=== PATIENT | female | born 1950 | race Caucasian/White ===

== ENCOUNTER → 2023-06-08 12:00 | Outpatient (REF) | payer OTHER, SELFPAY | LOC: WDC 12:00 | PROVIDERS: ATTENDING PHYSICIAN Physician Assistant Medical | DX: Z12.31 Encounter for screening mammogram for malignant neoplasm of breast (principal) | CPT/HCPCS: 77063; 77067 ==

== ENCOUNTER → 2023-10-16 06:47 | Day surgery (SDC) | payer OTHER, SELFPAY | LOC: GI 06:47 | PROVIDERS: ATTENDING PHYSICIAN Internal Medicine Gastroenterology | DX: Z12.11 Encounter for screening for malignant neoplasm of colon (principal); D12.5 Benign neoplasm of sigmoid colon; K57.30 Diverticulosis of large intestine without perforation or abscess without bleeding; K64.8 Other hemorrhoids; Z80.0 Family history of malignant neoplasm of digestive organs | CPT/HCPCS: 45385; 88305 ==

== ENCOUNTER → 2023-10-19 08:03 | Outpatient (REF) | payer OTHER, SELFPAY | LOC: WDC 08:03 | PROVIDERS: ATTENDING PHYSICIAN Physician Assistant Medical | DX: R92.2 Inconclusive mammogram (principal); R92.30 Dense breasts, unspecified | CPT/HCPCS: 76641 ==

== ENCOUNTER 2024-03-06 13:28 | Inpatient (IN) | payer OTHER, SELFPAY ==
[2024-03-06] VITALS (8 sets, daily range): BP systolic 133–170; BP diastolic 74–94; BMI 23.2; BMI 22.5
[2024-03-06 09:32] LABS: Glucose - Point of Care 125 mg/dl (70-99)
[2024-03-06 10:03] LABS: % Basophils 0.6 % (0-2); % Eosinophils 4.7 % (0-6); % Immature Granulocytes 0.3 % (0-0.5); % Lymphocytes 37.4 % (20.5-51.1); % Monocytes 7.9 % (1.7-9.3); % Neutrophils 49.1 % (42.2-75.2); Absolute Eosinophils 0.3 10^3/uL (0-0.7); Absolute Lymphocytes 2.7 10^3/uL (1.2-3.4); Absolute Monocytes 0.6 10^3/uL (0.1-0.6); Absolute Neutrophils 3.5 10^3/uL (1.4-6.5); Hematocrit 42.3 % (37.0-47.0); Hemoglobin 14.6 g/dL (12.0-16.0); Mean Corp Hgb Conc. 34.5 g/dL (33.0-37.0); Mean Corpuscular Hgb 31.6 pg (27.0-31.0); Mean Corpuscular Volume 91.6 fL (81.0-99.0); Mean Platelet Volume 8.9 fL (7.4-10.4); Nucleated Red Blood Cells % 0 %; Platelet Count 266 10^3/uL (130-400); Red Blood Cell Count 4.62 10^6/uL (4.20-5.40); Red Cell Dist. Width 12.4 % (11.5-14.5); White Blood Cell Count 7.2 10^3/uL (4.8-10.8)
[2024-03-06 10:13] LABS: Albumin 4.6 g/dl (3.5-5.0); Chloride 93 mmol/L (98-107); Potassium 3.8 mmol/L (3.5-5.1); Sodium 132 mmol/L (135-145)
[2024-03-06 10:51] LABS: ALT (SGPT) 30 U/L (0-35); AST (SGOT) 50 U/L (14-36); Alkaline Phosphatase 84 U/L (38-126); Blood Urea Nitrogen 17 mg/dl (7-17); Calcium 10.1 mg/dl (8.4-10.2); Carbon Dioxide 30 mmol/L (22-30); Estimated Creatinine Clearance 64 ml/min; Glucose 119 mg/dl (70-99); Total Bilirubin 0.4 mg/dl (0.2-1.3); Total Protein 7.6 g/dl (6.3-8.2); eGFR > 60.00
--- NOTE | 2024-03-06 11:08 | CON.NEURO ---
Neuro Assessment/Plan
Assessment
Acute onset right face, hand, leg sensation change as well as speech change in a patient with longstanding bilateral foot discomfort (normal EMG), significant osteoarthritis, and chronic daily headaches
DDX TIA/ Stroke, metabolic disturbance (less likely)
Patient was not a candidate for either
Plan
check MRI of brain
check CTA head and neck
check lipid profile
provide combination of aspirin and clopidogrel with loading doses; goal of eventual aspirin as solo therapy
Consider initiation of antihyperlipidemic agent based on cholesterol results
Goal of permissive hypertension until 24 hours at which time normotension
Goal of normoglycemia
Provide medical educational materials
Check blood work for potential metabolic abnormalities producing routine bilateral foot discomfort
Eventual outpatient sleep testing due to routine awakenings from sleep and chronic daily headaches
DVT prophylaxis
Will follow
Consultation
Order
Date of Consultation: 03/06/24
Requesting Provider: Emergency department provider
Reason for Consult: Dysarthria
Subjective/Objective
Subjective Data
Date of Service: March 06, 2024
Right-handed
Awoke with difficulty with walking (right leg and hand numbness) 0300, then at 0630 noted numbness on the right-side, holding items with the right hand was difficult. Speech slurred at 0900 noted by . Slurred speech has resolved after
approximately 2 hours.
Continued right-side of the mouth numbness starting at unclear time. No involvement of the left side except for 'neuropathy' in feet (tingling) constant ongoing since 2021. Evaluation by EMG was performed
No prior events. No other associated symptoms.
Objective Data
Vital Signs
Temp Pulse Resp BP Pulse Ox
36.7 C 75 18 145/77 96
03/06/24 09:28 03/06/24 10:15 03/06/24 10:15 03/06/24 10:09 03/06/24 10:00
Lab Results
03/06/24 09:55
03/06/24 09:55
Sodium 132 mmol/L (135-145) L 03/06/24 09:55
Potassium 3.8 mmol/L (3.5-5.1) 03/06/24 09:55
BUN 17 mg/dl (7-17) 03/06/24 09:55
Glucose 119 mg/dl (70-99) H 03/06/24 09:55
Calcium 10.1 mg/dl (8.4-10.2) 03/06/24 09:55
Patient Allergies
pollen extracts Allergy (Verified 03/06/24 09:31)
Nasal Congestion
CVA Assessment
Onset of Stroke Symptoms
Onset of symptoms known: Yes
Date of onset of symptoms: 03/06/24
Time of onset of symptoms: 03:00
Time pt last seen normal is known: Yes
Date last time pt seen normal: 03/05/24
Time last time pt seen normal: 22:30
NIH Stroke Score
Level of Consciousness: 0 - Alert
LOC Questions: 0-Answers both correctly
LOC Commands: 0-Performs both correctly
Best Horizontal Gaze: 0-Normal
Visual Collazo: 0=Normal, no visual loss
Facial Palsy: 0=Normal, symmetrical
Motor - Right Arm: 0=No drift 10 seconds
Motor - Left Arm: 0=No drift 10 seconds
Motor - Right Le-No drift 5 seconds
Motor - Left Le-No drift 5 seconds
Limb Ataxia: 0-Absent
Sensation: 0-Normal
Best Language: 0-No aphasia
Dysarthria: 0-Normal
Extinction and Inattention: 0-No abnormality
Total Score:: 0
Tenecteplase Contraindications
Inclusion and Exclusion criteria reviewed: Yes
IAT Contraindications: NIHSS < 6
Review of Systems
-
History Source: Patient and Family
All other systems: Reviewed and negative
EENT: Negative Decreased Vision or Swallowing Difficulty
Respiratory: Negative Trouble Breathing
Cardiac: Negative Chest Pain
Abdomen/GI: Negative Incontinence of Stool
Genitourinary: Frequency (since 2022); Negative Incontinence
Musculoskeletal: Other (muscle cramps since 2021); Negative Back Pain or Neck Pain
Neuro: Headache (daily since 2003); Negative Dizzy
Physical Exam
-
General: No Apparent Distress and Appears Stated Age
Eyes: OU Absent Papilledema, Round OU, [place] Conjunctivae and No Ptosis
HEENT: Anicteric and Moist Mucous Membranes
Neck: Full Range of Motion
Respiratory: No Dyspnea
Cardiac: No JVD
GI: Non-distended
Skin: Unremarkable
Extremities: No Clubbing, No Cyanosis and No Edema
Psych: Negative Intact Judgement/Insight
Extended Neurological Exam
Mood & Affect: Mood Unremarkable and Affect Unremarkable
Attention Span & Concentration: Awake, Alert, Interactive and No Difficulty with 2 Step Request
Memory: Unremarkable
Tremor: Hand Tremor Absent and Head Tremor Absent
Speech: Quality Unremarkable and Quantity Unremarkable
Cranial Nerve II: Left Eye: Pupillary Reactivity Unremarkable, Pupillary Size Unremarkable and Visual Collazo Intact
Cranial Nerve II: Right Eye: Pupillary Reactivity Unremarkable, Pupillary Size Unremarkable and Visual [place] Intact
Cranial Nerves III, IV, : Extraocular Movement: Extraocular Movement Full in all Directions
Cranial Nerve VII: Facial Symmetry: Normal Facial Symmetry
Cranial Nerve VIII: Hearing: Unremarkable Hearing to Normal Conversational Volume
Cranial Nerves IX, X: Palate Movement: Palate Elevation Symmetric
Cranial Nerve XI: Shoulder Shrug: Unremarkable
Cranial Nerve XII: Tongue Protusion: Midline
Muscle Strength, Overall: Full Throughout
Muscle Bulk & Tone: Bulk Unremarkable and Tone Unremarkable
Pronator Drift: No Drift in Upper Extremities
Deep Tendon Reflexes: Unremarkable Throughout
Touch Sensation: Unremarkable
Coordination: Cnpplx-[id number] Testing Unremarkable
Babinski Sign: Absent Bilaterally
Data Reviewed
-
CT-A: Pending
CT Head: Report Reviewed and Image Reviewed
Medications
-
Home Medications
�Medication �Instructions �Recorded
multivitamin (One Daily 1 ea PO DAILY 07/20/14
Multivitamin tablet)
alendronate 70 mg tablet (Fosamax) 70 mg PO WE 07/09/22
cholecalciferol (vitamin D3) 25 25 mcg PO DAILY 07/09/22
mcg (1,000 unit) tablet (Vitamin
D3)
acetaminophen 325 mg capsule 650 mg (2 x 325 mg) PO Q6H PRN 07/30/22
mild pain #60 caps
diphenhydramine HCl 25 mg capsule 50 mg (2 x 25 mg) PO HS #1 cap 07/30/22
(Benadryl)
hydrochlorothiazide 50 mg tablet 50 mg PO HS #1 tab 07/30/22
Past History
Past History
ED Past Medical History: Cancer (Melanoma right upper extremity), GERD, HTN, Hypercholesterolemia and Other (Arthritis, COVID-19, osteoporosis, vertigo); Negative NIDDM
ED Past Surgical History: Orthopedic (Right TKA 2014, L3-S1 laminectomy 2022) and Other (Right upper extremity Mohs, left lumpectomy, left eyelid ptosis repair, LASIK eye surgery, bilateral cataract extractions, wisdom teeth extractions)
Social History
Tobacco: Smoker
Alcohol: Daily
Drug: None
Family History
Family History: Other (Reviewed and noncontributory)
[2024-03-06 11:34] LABS: Alcohol None Detected
[2024-03-06 11:59] LABS: Erythrocyte Sed Rate 10 mm/hour (0-20)
--- NOTE | 2024-03-06 12:36 | ED.CVA ---
History of Present Illness
General
Chief Complaint: CVA/TIA Symptoms
Time Seen by Provider: 03/06/24 09:38
Onset of Stroke Symptoms
Onset of symptoms known: Yes
Date of onset of symptoms: 03/06/24
Time of onset of symptoms: 03:30
History of Present Illness
History of Present Illness:
73-year-old female with history of hypertension, hyperlipidemia, and prior alcohol use presents to the emergency department for evaluation of difficulty walking, right-sided numbness, and speech difficulty. She felt as though it was difficult to
ambulate to her bathroom at approximately 330 this a.m., upon awakening this morning her felt as though she was very weak and had difficulty speaking. [place] well when going to bed last night. Denies any recent alcohol use. No pain
currently. 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
Past History
Past History
ED Past Medical History: Cancer (Melanoma right upper extremity), GERD, HTN, Hypercholesterolemia and Other (Arthritis, COVID-19, osteoporosis, vertigo); Negative NIDDM
ED Past Surgical History: Orthopedic (Right TKA 2014, L3-S1 laminectomy 2022) and Other (Right upper extremity Mohs, left lumpectomy, left eyelid ptosis repair, LASIK eye surgery, bilateral cataract extractions, wisdom teeth extractions)
Social History
Tobacco: Smoker
Alcohol: Daily
Drug: None
Family History
Family History: Other (Reviewed and noncontributory)
Review of Systems
Review of Systems
Allergies reviewed?: Yes
All Other Systems: ROS reviewed and negative except as documented in HPI and ROS
Phy Exam
Physical Exam
Physical Exam:
GEN: Well appearing, NAD, WDWN
HEENT: Oral mucosa moist, no scleral icterus, no nasal congestion
Cardiac: Regular rate
Lung: No respiratory distress, no tachypnea
MSK: No gross deformity or injuries
Skin: Good color, no pallor or jaundice, no rashes
Neuro: AO x3; CN II-XII grossly intact. BUE strength 5/5 in all [place], sensation intact and symmetric. BLE strength 5/5 in all [place], sensation intact and symmetric
Psych: Calm, cooperative
Course
Orders/Labs/Results
Orders:
Orders
03/06/24 09:45
Electrocardiogram (*1) Urgent
Reason for Study: TIA/Stroke
CT Head W/o Iv Contrast Urgent
Comment:
Reason For Exam: stroke like symptoms
EKG- Treatment ONCE
03/06/24 09:55
Alcohol Urgent
Cardiovascular Evaluation Urgent
Comment: ADD ON
Complete Blood Count/With Diff Urgent
Comprehensive Metabolic Panel Urgent
Erythrocyte Sed Rate Urgent
Comment: ADD ON
Ferritin Urgent
Comment: ADD ON
Folate Urgent
Comment: ADD ON
Vitamin B12 Urgent
Comment: ADD ON
03/06/24 11:07
CT Head & Neck Angio W/wo IV Urgent
Comment:
Reason For Exam: stroke like symptoms
03/06/24 11:12
Add On- LAB Routine
Comments:: Please add to today's labs or draw as routine
Tests Added?: EtOH, Ferritin, Folate, Vit. B12, ESR
03/06/24 12:06
Consult Neurology [NEUROLOGY CONSULT] Urgent
Consulting Provider: Salty Cramer
Was physician already notified: Yes
03/06/24 12:28
Add On- LAB Routine
Comments:: Please add to today's labs or draw as routine
Tests Added?: lipid proflie
03/06/24 12:38
Clopidogrel Bisulfate [Plavix] 300 mg PO NOW STA
03/06/24 13:12
MR Brain Without Contrast Routine
Comment:
Reason For Exam: Stroke
Recent pill cam endoscopy?: No
03/06/24 13:16
Admit/Transfer Patient As Directed
Co-Sign Provider:
Level of Care: Inpatient admission
Assign to:: Telemetry
Physician / Group: anupy
Diagnosis: presumed acute CVA
Reason for Telemetry: CVA/TIA
Date to Stop Telemetry: 03/09/24
Time to Stop Telemetry: 11:00
Reason for Hospitalization: presumed acute CVA
Expected length of stay greater than two midnights?: Yes
ELOS- Estimated Length of Stay in days: 3
I certify the patient meets the requirements for IP care: Yes
PRN Pain Medication Management As Directed
May give lesser potent ordered pain med per pt: Yes
preference::
Protocol:: Medication orders for pain may be administered in a
manner that supports deferring to patient preference
when the pt is:
-Requesting an ordered lesser potent pain medication.
Least to most potent pain medications are defined as:
acetaminophen < NSAID < tramadol < opioids (morphine,
oxycodone, hydromorphone).
- Requesting a lesser dose of the same medication IF
ORDERED.
- Requesting a less intrusive route of administration
if both routes are prescribed by the provider (PO <
IV).
03/06/24 13:18
Code Status As Directed
Resuscitation Status: Full Code
03/09/24 11:00
DC Protocol for Telemetry ONCE
Abnormal Lab Results
03/06/24 03/06/24
09:30 09:55
MCH 31.6 H pg
(27.0-31.0)
Sodium 132 L mmol/L
(135-145)
Chloride 93 L mmol/L
(98-107)
Glucose 119 H mg/dl
(70-99)
AST 50 H U/L
(14-36)
Folate > 20.0 H ng/ml
(2.76-20)
POC Glucose 125 H mg/dl
(70-99)
03/06/24 09:55
03/06/24 09:55
Vital Signs
Initial and Last Documented VS:
Initial Vital Signs
Temp Pulse Resp BP Pulse Ox
98.0 F 83 16 159/82 97
03/06/24 09:28 03/06/24 09:28 03/06/24 09:28 03/06/24 09:28 03/06/24 09:28
Last Documented Vital Signs
Temp Pulse Resp BP Pulse Ox
98.0 F 81 24 152/89 97
03/06/24 09:28 03/06/24 13:17 03/06/24 13:17 03/06/24 13:17 03/06/24 13:17
MDM/Problems Addressed
MDM/Problems Addressed:
Presentation concerning for acute CVA, outside the thrombolytic window additionally has nondisabling deficits. Will start Plavix per neurology recommendations, admission for further workup
*Critical Care Note
Total Time (30-74mins, 75-104mins- exclusive of procedures): Not Applicable
ED Attending Note
-
Portions of this chart may have been created with voice recognition software.� Occasional wrong word or��sound alike� substitutions may have occurred due to the inherent limitations of voice recognition software.
Discharge Plan
Departure
Patient Disposition: Admit
Date of Disposition: 03/06/24
Time of Disposition: 12:40
Admit to: Med/Surg
Presentation/result/management discussed w/ accepting MD/DO: Hospitalist
Discharge Problem:
Stroke
Interventions
Interventions:
*Risk Screen - Suicide Last Done: 03/06/24 09:28
ED- Fall Risk Assessment Last Done: 03/06/24 09:51
*ED COVID-19 Vaccine History Last Done: 03/06/24 09:51
ED- Pulmonary Assessment Last Done: 03/06/24 10:11
ED- Neurological Assessment Last Done: 03/06/24 09:44
ED- Cardiac Assessment Last Done: 03/06/24 10:11
[2024-03-06 12:46] LABS: Ferritin 64.9 ng/ml (11.1-264.0)
--- NOTE | 2024-03-06 13:07 | HPS.HSE ---
Family Physician
-
Family Physician: Ana Grace
Chief Complaint
-
new onset of difficulty walking and abn speech
History of Present Illness
HPI
73F HX HTN, HLD, prior alcohol use seen at ER :
Around 330am today
- new onset of difficulty walking to her bathroom
- upon awakening this morning her felt as though she was very weak and had difficulty speaking.
- she reports felt well when going to bed last night.
- HX chronic right hand and right foot neuropathy with numbness that seems to wax and wane
- chr numbness seems to be worse than normal
ROS:
Denies any recent alcohol use.
No pain currently.
Medical History
Past Medical History
Past Medical History: Reports Cancer (Melanoma right upper extremity s/p Right upper extremity Mohs), GERD, HTN, Hypercholesterolemia and Other ( osteoporosis, vertigo); Denies NIDDM
Past Surgical History: Reports Orthopedic (Right TKA 2014, L3-S1 laminectomy 2022) ) and Other (left Breast lumpectomy,)
Additional Past Surgical History:
LASIK eye surgery, bilateral cataract extractions, wisdom teeth extractions)
Social History
Tobacco: Smoker
Alcohol: Daily
Drug: None
Family History
Family History: Not pertinent
Allergies / Home Medications
Allergies reflects when Allergies were last updated in [facility].
Home Medications with original date entered in [facility]
Allergy/Medication List:
Allergies
Allergy/AdvReac Type Severity Reaction Status Date / Time
pollen extracts Allergy Nasal Verified 03/06/24 09:31
Congestion
Home Medications
alendronate 70 mg tablet (Fosamax) 70 mg PO WE 07/09/22
cholecalciferol (vitamin D3) 25 mcg (1,000 unit) tablet (Vitamin D3) 25 mcg PO DAILY 07/09/22
diphenhydramine HCl 25 mg capsule (Benadryl) 50 mg (2 x 25 mg) PO HS #1 cap 07/30/22
Arthritis Gel 1 applic topical DAILY stiff joints 03/06/24
rqmsouj-jkkzgkmgbfajc-elwnnnml 250 mg-250 mg-65 mg tablet (Excedrin Extra Strength) 2 tab PO BID 03/06/24
hydrochlorothiazide 50 mg tablet 50 mg PO DAILY 03/06/24
therapeutic multivitamin 1 tab PO DAILY 03/06/24
Review of Systems
-
Constitutional: Reports No Symptoms
EENT: Reports No Symptoms
Respiratory: Reports No Symptoms
Cardiac: Reports No Symptoms
Abdomen/GI: Reports No Symptoms
: Reports No Symptoms
Musculoskeletal: Reports No Symptoms
Skin: Reports No Symptoms
Neurological: Reports See HPI
Endocrine: Reports No Symptoms
Hematologic/Lymphatic: Reports No Symptoms
Psych: Reports No Symptoms
Physical Exam
Vital Signs
Vital Signs
Temp Pulse Resp BP Pulse Ox
98.0 F 75 17 164/81 96
03/06/24 09:28 03/06/24 11:49 03/06/24 11:49 03/06/24 11:00 03/06/24 11:49
Physical Exam
General: No Apparent Distress and Conversant
HEENT: NormoCephalic, Anicteric and Moist mucous membranes
Respiratory: Clear
Cardiac: S1/S2 and Regular Rhythm; No Murmur
Breast: Deferred by me
GI: Soft, Non Tender, Non Distended and Normal Bowel Sounds
Rectal: Deferred by Provider
Musculoskeletal: No Edema
Skin: Warm and Dry
Neuro: AO x 3, No Motor Deficits and Nonfocal/grossly intact; No Slurred Speech or Facial Droop
Psych: Calm and Intact Judgment/Insight
Laboratory Results
-
03/06/24 09:55
03/06/24 09:55
Laboratory Results
Total Bilirubin 0.4 mg/dl (0.2-1.3) 03/06/24 09:55
AST 50 U/L (14-36) H 03/06/24 09:55
ALT 30 U/L (0-35) 03/06/24 09:55
Alkaline Phosphatase 84 U/L (38-126) 03/06/24 09:55
Data Reviewed
-
CT Scan: Report Reviewed by me
Lab Data: Labs Reviewed by me
Impression/Plan
-
Reviewed VS: BP 165/80
Data
Unremarkable CBC
Na 132 otherwise unremarkable BMP
AST 50
Pending : B12 and Folate
03/06/24 CT Head W/o Iv Contrast
- No acute intracranial abnormality. Chronic senescent changes. An MRI would be more sensitive if there is persistent clinical concern for acute ischemia.
03/06/24 CT Head & Neck Angio W/wo IV
- Bilateral carotid bifurcation atherosclerosis with only mild stenosis of the bilateral carotid bulbs, left greater than right.
- Short segment high-grade stenosis versus hypoplasia of the distal V4 segment of the left vertebral artery.
- No CTA evidence for high-grade stenosis or occlusion in the [place].
03/21/13 TTE
1. Left ventricle: EF 55-60%. No wall motion abnormality.
2. Mitral valve: Mild mitral regurgitation
3. Aortic valve: No or AI
4. Tricuspid valve: Trace tricuspid regurgitation with estimated pulmonary
systolic pressures 30-35 mmHg
5. No prior studies for comparison
Last hospitalist encounter 2014
ASSESSMENT & PLAN
Presumed acute CVA
Risks; current smoker, HLD, HTN
- NEG HCT
- H & N CTA unremarkable to correlate with current neurological synptoms'
- s/p Loading dose of plavix- will cont 75 mg daily
- A1C, Lipids in AM
- ECHO in AM
- Brain MRI in AM
- Neuro consulted
HX Chronic neuropathy with waxing and waning course of paraesthesia in Right hand and right foot neuropathy
Daily ETOH use
- Noted Nl MCV
- check B12 and Folate
Current smoker
- cessation of smoking strongly advised
Essential HTN
- Permissive HTN is SBP 165 and DBP 100
- cont COURT DEPUTY HCTZ 50mg HS
Hypercholesterolemia is listed
- Not on statin yet pending Lipids and pending brain MRI in AM
PMHX:
HX Melanoma right upper extremity s/p Right upper extremity Mohs suregery
GERD
Arthritis
Osteoporosis on Alendronate Q Thu
Vertigo
DVT Px: SCD
Code: Full
IP TLM
[2024-03-06] MEDS: PLAVIX 300 MG PO (13:16)
[2024-03-06 13:18] LABS: Folate > 20.0 ng/ml (2.76-20); Vitamin B12 807 pg/ml (239-931)
[2024-03-06 14:34] LABS: HDL Cholesterol 95 mg/dl; LDL Cholesterol, Calculated 137 mg/dl; Total Cholesterol 242 mg/dl (50-199); Triglyceride 54 mg/dl (10-149); Very Low Density Lipoprotein 10 mg/dl (0-30)
--- NOTE | 2024-03-06 18:20 | PTCARENOTE ---
Pt walked from stretcher to bed with standby assist. AAOx3 able to make needs known. Placed on tele #24 NSR. Oriented to room and use of call dejesus. NIH 1 for decreased sensation to R hand. Call dejesus within reach.
[2024-03-06] MEDS: LIPITOR 80 MG PO (19:14)
[2024-03-07 03:00] VITALS: BP 130/73
--- NOTE | 2024-03-07 06:41 | W.PN.HOSP.TC ---
Today's Communication/Plan
-
ASA Plavix Statin
ST/PT/OT
PMR
discharge planning Acute rehab
Assessment / Plan
Assessment / Plan
Physical Exam
General: No Apparent Distress and Conversant
HEENT: NormoCephalic, Anicteric and Moist mucous membranes
Respiratory: Clear
Cardiac: S1/S2 and Regular Rhythm; No Murmur
GI: Soft, Non Tender, Non Distended and Normal Bowel Sounds
Musculoskeletal: No Edema
Skin: Warm and Dry
Neuro: AO x 3 strength 4/5 RUE rest of ext's 07/18
Psych: Calm and Intact Judgment/Insight
73F HTN HLD prior hx ETOH use p/w with acute onset ambulatory and speech difficulty ultimately found to have stroke on MRI
Presumed acute CVA
Risks; current smoker, HLD, HTN
- NEG HCT
- H & N CTA unremarkable to correlate with current neurological symptoms
- A1C 5.8, Lipid panel appreciated Hyperlipidemia LDL 124 (goal LDL<70) started on high dose atorvastatin, continue
- ECHO appreciated EF 55-60% no significant change compared to prior ECHO 2013
- Brain MRI appreciated 8 mm acute/subacute nonhemorrhagic left thalamic infarct
- Neuro consult appreciated ASA Plavix 21 days then asa alone
-PT/OT PMR eval appreciated Acute Rehab
HX Chronic neuropathy with waxing and waning course of paraesthesia in Right hand and right foot neuropathy
Daily ETOH use
- Noted Nl MCV
- B12 and Folate non-deficient
Current smoker
- cessation of smoking strongly advised
Essential HTN
- completed permissive hypertension
- cont MANAGEMENT ADVISOR HCTZ 50mg HS
Hypercholesterolemia is listed
- started on atorvastatin as above
-low cholesterol diet recommended
PMHX:
HX Melanoma right upper extremity s/p Right upper extremity Mohs suregery
GERD
Arthritis
Osteoporosis on Alendronate Q Thu
Vertigo
DVT Px: SCD
Code: Full
IP TLM
Discussed with patient and her Fabiano
I spent a total of 50 minutes with the patient or on the floor. More than 50% of this time involved counseling and coordination of care.
Anticipated Discharge: 24 - 48 hours
Subjective/Interval History
-
Date of Service: March 07, 2024
No acute distress resting comfortably in bed. Reports right hand clumsiness.
Objective Data
-
Vital Signs:
Vital Signs
Temp Pulse Resp BP Pulse Ox
98.4 F 75 18 130/73 100
03/07/24 03:00 03/07/24 03:00 03/07/24 03:00 03/07/24 03:00 03/07/24 03:00
I&O
03/05/24 03/06/24 03/07/24
06:59 06:59 06:59
Intake Total 240 / 240
Balance 240 / 240
[2024-03-07 06:52] LABS: HDL Cholesterol 92 mg/dl; LDL Cholesterol, Calculated 124 mg/dl; Total Cholesterol 226 mg/dl (50-199); Triglyceride 54 mg/dl (10-149); Very Low Density Lipoprotein 10 mg/dl (0-30)
[2024-03-07 08:00] VITALS: BP 138/74
[2024-03-07] MEDS: ORETIC 50 MG PO (08:21)
[2024-03-07] MEDS: PLAVIX 75 MG PO (08:21)
[2024-03-07] MEDS: LOW STRENGTH ASPIRIN 81 MG PO (08:42)
--- NOTE | 2024-03-07 10:16 | W.PN.NEURO.1 ---
Addendum entered and electronically signed by Salty Cramer MD 03/07/24 11:10:
Studies reviewed.
I have personally examined the patient. I reviewed and agree with the RING PACKER's Note.
My addenda:
Awake, alert, interactive. No acute distress.
Speech intact.
Follows 2-step requests w/o difficulty. No tremor.
Extra-ocular movements grossly intact.
Facial movements full and symmetric. Hearing intact to normal conversational volume.
Normal UE movements bilaterally.
Neck: full ROM.
Chest: no dyspnea
Heart: no JVD
Ext: (-) Clubbing, (-) Cyanosis, (-) Edema
IMPRESSIONS/RECOMMENDATIONS:
Abrupt onset of speech change with right hand dysfunction and longstanding history of bilateral foot discomfort of unclear etiology with chronic daily headaches and sleep disturbance
MRI brain confirms left basal ganglia acute ischemic stroke
No clear indication at this time of benefit for echocardiogram as the patient's age is greater than 60
Continue aspirin and clopidogrel therapy for total of 21 days, then aspirin alone
Outpatient sleep testing
Continue newly initiated atorvastatin 80 mg daily
Rehabilitation evaluations
D/W patient
Will continue to follow as needed.
Original Note:
Documented by User: TAMMY Malin 03/07/24 10:28
Today's Communication / Plan
-
ASA and Clopidogrel x 21 days, then ASA 81 mg alone
Atorvastatin 80 mg
continue therapy
Neuro Assessment/Plan
Assessment
Acute onset right face, hand, leg sensation change as well as speech change in a patient with longstanding bilateral foot discomfort (normal EMG), significant osteoarthritis, and chronic daily headaches
MRI brain (03/06/2024)
8 mm acute/subacute nonhemorrhagic left thalamic infarct
There is moderate cortical and cerebellar atrophy with moderate nonspecific white matter changes as described above.
CTA head and neck (03/06/2024
Bilateral carotid bifurcation atherosclerosis with only mild stenosis of the bilateral carotid bulbs, left greater than right.
Short segment high-grade stenosis versus hypoplasia of the distal V4 segment of the left vertebral artery.
No CTA evidence for high-grade stenosis or occlusion in the [place].
Plan
MRI of brain (+) left thalamic stroke
LDL 124, continue Atorvastatin 80 mg
continue aspirin and clopidogrel for 21 days, then aspirin as solo therapy
Goal normotension
Goal of normoglycemia
Provide medical educational materials
PT/OT and speech therapy
Check blood work for potential metabolic abnormalities producing routine bilateral foot discomfort
Eventual outpatient sleep testing due to routine awakenings from sleep and chronic daily headaches
DVT prophylaxis
will need outpatient follow up in 6-8 weeks
Subjective/Objective
Subjective Data
Date of Service: March 07, 2024
Pt seen at bedside. No issues overnight. Feels right sided weakness starting to improve. Able to ambulate to the BR. Still feels she is having difficulty using right hand.
Objective Data
Vital Signs
Temp Pulse Resp BP Pulse Ox
98.1 F 75 16 138/74 96
03/07/24 08:00 03/07/24 08:00 03/07/24 08:00 03/07/24 08:00 03/07/24 08:00
Lab Results
03/06/24 09:55
03/06/24 14:44
Sodium Cancelled 03/06/24 14:44
Potassium Cancelled 03/06/24 14:44
BUN Cancelled 03/06/24 14:44
Glucose Cancelled 03/06/24 14:44
Calcium Cancelled 03/06/24 14:44
LDL Cholesterol, Calc 124 mg/dl 03/07/24 05:40
Vitamin B12 807 pg/ml ([id number]) 03/06/24 09:55
Patient Allergies
pollen extracts Allergy (Verified 03/06/24 09:31)
Nasal Congestion
Review of Systems
-
History Source: Patient
All other systems: Reviewed and negative
Constitutional: No Symptoms
EENT: No Symptoms Reported
Respiratory: No Symptoms
Cardiac: No Symptoms
Abdomen/GI: No Symptoms
Genitourinary: No Symptoms
Musculoskeletal: No Symptoms
Skin: No Symptoms
Neuro: Weakness, Numbness, Speech Problem (mild) and See existing Neuro Note; Negative Dizzy, Headache or Tremors
Physical Exam
-
General: Well Developed, Well Nourished and No Apparent Distress
Eyes: Round OU, No Ptosis and PERRLA
HEENT: Normocephalic and Atraumatic
Neck: Full Range of Motion
Respiratory: No Dyspnea
Cardiac: Regular Rhythm
GI: Soft and Non-tender
Skin: Unremarkable
Extremities: No Clubbing and No Edema
Extended Neurological Exam
Mood & Affect: Mood Unremarkable and Affect Unremarkable
Attention Span & Concentration: Awake, Alert, Interactive and No Difficulty with 2 Step Request
Memory: Unremarkable
Tremor: Hand Tremor Absent and Head Tremor Absent
Involuntary Movement: None
Speech: Quality Unremarkable, Quantity Unremarkable and Rate of Production Unremarkable (mildly delayed)
Cranial Nerve II: Left Eye: Pupillary Reactivity Unremarkable and Pupillary Size Unremarkable
Cranial Nerve II: Right Eye: Pupillary Reactivity Unremarkable and Pupillary Size Unremarkable
Cranial Nerves III, IV, : Extraocular Movement: Extraocular Movement Full in all Directions
Cranial Nerve V: Facial Sensation: Facial Sensation Unremarkable to Cold
Cranial Nerve VII: Facial Symmetry: Normal Facial Symmetry
Cranial Nerve VIII: Hearing: Unremarkable Hearing to Normal Conversational Volume
Cranial Nerves IX, X: Palate Movement: Palate Elevation Symmetric
Cranial Nerve XI: Shoulder Shrug: Unremarkable
Cranial Nerve XII: Tongue Protusion: Midline
Muscle Strength, Overall: Reduced (mildy weak right hand grasp)
Muscle Bulk & Tone: Bulk Unremarkable and Tone Unremarkable
Pronator Drift: No Drift in Upper Extremities
Deep Tendon Reflexes: Unremarkable Throughout
Cold Sensation: Testing in Upper Extremities
Touch Sensation: Testing in Upper Extremities and Unremarkable
Coordination: [place]a-kooupq Testing Unremarkable
Data Reviewed
-
CT-A: Report Reviewed
CT Head: Report Reviewed
MRI Head: Report Reviewed
Lipid Profile: Report Reviewed
HgbA1C: Pending

Documented by User: Salty Cramer MD 03/07/24 11:08
Past History
Past History
ED Past Medical History: Cancer (Melanoma right upper extremity), CVA (Left basal ganglia February 2024), GERD, HTN, Hypercholesterolemia and Other (Arthritis, COVID-19, osteoporosis, vertigo); Negative NIDDM
ED Past Surgical History: Orthopedic (Right TKA 2014, L3-S1 laminectomy 2022) and Other (Right upper extremity Mohs, left lumpectomy, left eyelid ptosis repair, LASIK eye surgery, bilateral cataract extractions, wisdom teeth extractions)
Social History
Tobacco: Smoker
Alcohol: Daily
Drug: None
Family History
Family History: Other (Reviewed and noncontributory)
Medications
-
Medications:
Generic Name Dose Route Start Last Admin
Trade Name Freq PRN Reason Stop Dose Admin
Acetaminophen 650 mg 03/06/24 14:44
Acetaminophen 650 Mg Rectal Suppository RECTAL 04/03/24 14:43
Q4HPRN PRN
HITCHCOCK, mild pain, or temp >100.4F
Acetaminophen 650 mg 03/06/24 14:44
Acetaminophen 325 Mg Tablet PO 04/03/24 14:43
Q4HPRN PRN
HITCHCOCK, mild pain, or temp >100.4F
Aspirin 81 mg 03/07/24 09:00 03/07/24 08:42
Aspirin 81 Mg Chewable Tablet PO 04/04/24 08:59 81 mg
DAILY MALCOLM Administration
Atorvastatin Calcium 80 mg 03/06/24 18:00 03/06/24 19:14
Atorvastatin (Lipitor) 80 Mg Tablet PO 04/03/24 17:59 80 mg
QPM MALCOLM Administration
Clopidogrel Bisulfate 75 mg 03/07/24 08:00 03/07/24 08:21
Clopidogrel 75 Mg Tablet PO 04/04/24 07:59 75 mg
DAILY MALCOLM Administration
Hydrochlorothiazide 50 mg 03/07/24 08:00 03/07/24 08:21
Hydrochlorothiazide 25 Mg Tablet PO 04/04/24 07:59 50 mg
DAILY MALCOLM Administration
Thiamine HCl 100 mg 03/07/24 11:00
Thiamine 100 Mg Tablet PO 03/09/24 08:01
DAILY MALCOLM
[2024-03-07 11:50] VITALS: BP 139/76
[2024-03-07] MEDS: VITAMIN B1 100 MG PO (11:56)
[2024-03-07 13:06] LABS: Glycohemoglobin (HgbA1c) 5.8 % (4.0-5.6)
--- NOTE | 2024-03-07 13:21 | PTOTSP ---
SPEECH THERAPY SWALLOW EVALUATION:
Patient exhibits grossly functional oropharyngeal swallow at this time. No history of dysphagia noted. Patient remains at risk for dysphagia/aspiration given acute CVA. Recommend continue Regular texture solids, thin liquids. Medications whole with
liquid as best tolerated. General aspiration precautions. Skilled ST services for swallow therapy are not indicated at this time.
Patient exhibits grossly functional speech, expressive/receptive language, and cognitive communication skills during informal assessment. However, patient reporting residual speech/language impairments including word finding difficulties. Would
recommend further evaluation of speech/language/cognitive communication skills by ST. ST to follow at the acute care level to complete evaluation given acute CVA.
RECOMMEND:
1) Regular texture diet, thin liquids
2) Medications whole with liquid as best tolerated
3) General aspiration precautions
4) No skilled ST services for swallow are indicated at this time; ST to follow for comprehensive speech/language/cognitive communication evaluation
--- NOTE | 2024-03-07 14:46 | VNURNOTE ---
[facility] liaison attempted to meet with patient at bedside. She was sound asleep. Left [facility] brochure at bedside. Referral placed in [facility].
--- NOTE | 2024-03-07 15:17 | CON.MR ---
Consultation
Consultation Request
Date/Time Consultation Requested: 03/07/24
Date/Time Consultation Performed: 03/07/24 1400
Requesting Provider: Dr. Lee
Performing Provider: Dr. Singleton
Reason for Consultation: CVA
Medical History
-
Chief Complaint: CVA
History of Present Illness:
73 year old female with past medical history of HTN, HLD and daily alcohol use, presented to the ER 03/06/24 with new onset difficulty walking, Right sided weakness especially in the UE, and slurring speech. Unknown timing of onset and felt well
night before. Does have history of neuropathy and chronic tingling in the feet, although worse with admission. Initial head CT generally negative. MRI of the brain with left basal ganglia acute infarct.
Hospital course so far otherwise unremarkable. Patient seen at bedside this afternoon. Patient states she does have some headache, but denies any vision changes, no nausea no dizziness. States weakness is improving, and numbness in the right arm
and hand - states the hand is nearly completely numb feeling. No changes in the feet paresthesias.
[place] Bed/bath on second floor and 2-3 steps to enter. Previously independent with ADLs and mobility and no use of cane or AD.
Past Medical History
Cancer (Melanoma right upper extremity s/p Right upper extremity Mohs), GERD, HTN, Hypercholesterolemia and osteoporosis, vertigo; Denies NIDDM
Past Surgical History: Right TKA 2014, L3-S1 laminectomy 2022, left Breast lumpectomy, LASIK eye surgery, bilateral cataract extractions, wisdom teeth extractions
Social History
Tobacco: Smoker
Alcohol: Daily
Drug: None
Family History
Family History: Not pertinent
Social History
Functional Level Premorbidity:
States lives with and extended [place]. Bed/bath on second floor and 2-3 steps to enter. Previously independent with ADLs and mobility and no use of cane or AD.
Current Funct Level: Ambulation, Transfer, UE/LE Dressing:
Supervision transfers, Min A ambulation but no assistive device
Tobacco: Smoker
Alcohol: Occasional
Living: With Family
Number of Floors: 2
Potential First Floor Set Up: No
Allergies / Home Medications
Allergy/AdvReac Type Severity Reaction Status Date / Time
pollen extracts Allergy Nasal Verified 03/06/24 09:31
Congestion
�Medication �Instructions �Recorded �Confirmed �Last Taken �Type
alendronate 70 mg tablet (Fosamax) 70 mg PO WE osteoporosis 07/09/22 03/06/24 03/02/24 History
cholecalciferol (vitamin D3) 25 25 mcg PO DAILY Supplement 07/09/22 03/06/24 03/06/24 History
mcg (1,000 unit) tablet (Vitamin
D3)
diphenhydramine HCl 25 mg capsule 50 mg (2 x 25 mg) PO HS #1 cap 07/30/22 03/06/24 03/05/24 Rx
(Benadryl)
Arthritis Gel 1 applic topical DAILY stiff joints 03/06/24 03/06/24 Unknown History
xuwuxky-jxbrtmbiwiyww-endtlskb 250 2 tab PO BID migraine 03/06/24 03/06/24 03/06/24 History
mg-250 mg-65 mg tablet (Excedrin
Extra Strength)
hydrochlorothiazide 50 mg tablet 50 mg PO DAILY Blood Pressure 03/06/24 03/06/24 03/06/24 History
magnesium 2 tab PO BID Supplement 03/06/24 03/06/24 Unknown History
therapeutic multivitamin 1 tab PO DAILY Supplement 03/06/24 03/06/24 03/06/24 History
Review Of Systems
-
History Source: Patient
All other systems: Negative unless noted
Constitutional: Reports No Symptoms
Eye: Reports No Symptoms
EENT: Reports No Symptoms
Respiratory: Reports No Symptoms
Cardiac: Reports No Symptoms
Abdomen/GI: Reports No Symptoms
: Reports No Symptoms
Musculoskeletal: Reports No Symptoms
Integumentary: Reports No Symptoms
Neurological: Reports Weakness and Numbness
Psych: Reports No Symptoms
Endocrine: Reports No Symptoms
Hematologic/Lymphatic: Reports No Symptoms
Immunology: Reports No Symptoms
Physical Exam
Active Medications
Generic Name Dose Route Start Last Admin
Trade Name Freq PRN Reason Stop Dose Admin
Acetaminophen 650 mg 03/06/24 14:44
Acetaminophen 650 Mg Rectal Suppository RECTAL 04/03/24 14:43
Q4HPRN PRN
[place]ITCH[place]OCK, mild pain, or temp >100.4F
Acetaminophen 650 mg 03/06/24 14:44
Acetaminophen 325 Mg Tablet PO 04/03/24 14:43
Q4HPRN PRN
HITCHCOCK, mild pain, or temp >100.4F
Acetaminophen 1,000 mg 03/07/24 15:14
Acetaminophen 500 Mg Tablet PO 03/07/24 15:15
NOW STA
Aspirin 81 mg 03/07/24 09:00 03/07/24 08:42
Aspirin 81 Mg Chewable Tablet PO 04/04/24 08:59 81 mg
DAILY MALCOLM Administration
Atorvastatin Calcium 80 mg 03/06/24 18:00 03/06/24 19:14
Atorvastatin (Lipitor) 80 Mg Tablet PO 04/03/24 17:59 80 mg
QPM MALCOLM Administration
Clopidogrel Bisulfate 75 mg 03/07/24 08:00 03/07/24 08:21
Clopidogrel 75 Mg Tablet PO 04/04/24 07:59 75 mg
DAILY MALCOLM Administration
Hydrochlorothiazide 50 mg 03/07/24 08:00 03/07/24 08:21
Hydrochlorothiazide 25 Mg Tablet PO 04/04/24 07:59 50 mg
DAILY MALCOLM Administration
Thiamine HCl 100 mg 03/07/24 11:00 03/07/24 11:56
Thiamine 100 Mg Tablet PO 03/09/24 08:01 100 mg
DAILY MALCOLM Administration
Vital Signs
Temp Pulse Resp BP Pulse Ox
98.0 F 75 16 139/76 96
03/07/24 11:50 03/07/24 11:50 03/07/24 11:50 03/07/24 11:50 03/07/24 11:50
Height 5 ft 2 in
Actual Weight 55.792 kg
Body Mass Index (BMI) 22.5
Physical Exam
Physical Exam:
General Appearance/Observation: Well-developed, well-nourished individual in no apparent distress. Lying comfortably in bed.
Pain/Comfort Assessment: Headache mild
Mood/Affect: Appropriate
Eyes: Conjunctiva/Lids: normal Pupils: pupils equal round and reactive to light and Accommodation
Ears/Nose/Throat: oral mucosa moist, throat clear. Lips/Teeth/Gums: normal
Neck: No muscle spasm or tenderness
Cardiovascular: Heart: regular, no murmur
Pulses: dorsalis pedis 2+ bilaterally
Respiratory: Respiratory Effort/Chest Expansion: normal Auscultation: Clear to auscultation bilaterally
Gastrointestinal: abdomen not tender, no distension, normal abdominal bowel sounds
Rectal Exam: Deferred
Extremities: Edema: None Cyanosis: None Trophic changes: None
Neurology Exam:
Orientation: Alert, Oriented to self, Time, Place
Memory: Intact immediately and at 3 minutes
Higher cortical function
Speech: Intact
Repetition: Intact
Comprehension: Intact
Two step command: Intact
Naming: Intact
Cranial Nerves:
CNII: Pupillary light reflex: Intact Visual Field: Intact
CN III, IV, : Extraocular muscles: Intact
CN V: Facial Sensation at Forehead: Intact , Maxilla: Intact, Mandible: Intact
CN VII: Facial movement: Right sided weakness, facial droop
CN VIII: Hearing: Normal
CN IX/X: Speech & swallow: Dysarthria, but intelligible Position of Uvula: Midline
CN XI: Shoulder shrug: Symmetric
CN XII: Tongue protrusion: Slightly to right.
Sensory:
Light touch: Decreased in right index, but denies other asymmetry in the RUE. No asymmetry in the feet, but slight decreased compared to thighs.
Reflexes:
Achilles: trace bilaterally
Babinski: Downgoing bilaterally
Clonus: None
Sandy: Negative bilaterally
Cerebellar: Dysmetria/Ataxia: No drift, but slight dysmetria with FNF bilaterally. Decreased rapid alternating movement in the right hand compared to left.
Musculoskeletal:
Motor: (Manual muscle scale 0-5)
Muscle SA EF WE EE FF FA HF KE DF EHL PF
Right 4 5 5 4 5 4 5 5 5 5 5
Left 5 5 5 5 5 5 5 5 5 5 5
OA changes in bilateral hands and digits.
Tone: Normal in all extremities
Range of Motion: Passively within normal limits in all extremities
Lab Results
03/06/24 09:55
03/06/24 14:44
WBC 7.2 10^3/uL (4.8-10.8) 03/06/24 09:55
Hgb 14.6 g/dL (12.0-16.0) 03/06/24 09:55
Hct 42.3 % (37.0-47.0) 03/06/24 09:55
MCV 91.6 fL (81.0-99.0) 03/06/24 09:55
Plt Count 266 10^3/uL (130-400) 03/06/24 09:55
ESR 10 mm/hour (0-20) 03/06/24 09:55
Sodium Cancelled 03/06/24 14:44
Potassium Cancelled 03/06/24 14:44
Chloride Cancelled 03/06/24 14:44
Carbon Dioxide Cancelled 03/06/24 14:44
BUN Cancelled 03/06/24 14:44
Creatinine Cancelled 03/06/24 14:44
eGFR Cancelled 03/06/24 14:44
Glucose Cancelled 03/06/24 14:44
Hemoglobin A1c Cancelled 03/06/24 14:44
Calcium Cancelled 03/06/24 14:44
Total Bilirubin Cancelled 03/06/24 14:44
AST Cancelled 03/06/24 14:44
ALT Cancelled 03/06/24 14:44
Alkaline Phosphatase Cancelled 03/06/24 14:44
Total Protein Cancelled 03/06/24 14:44
Albumin Cancelled 03/06/24 14:44
Diagnostic Results
As per HPI.
Comorbidities / Impairment Group
Comorbidities:
HTN
Impairment Group:
CVA left basal ganglia
Assessment / Plan
Plan
Assessment:
73 year old female with CVA right basal ganglia acute infarct and right sided weakness, dysarthria, hemisensory deficits
PM&R PT/OT to increase independence with ADLs, improve balance, coordination, endurance, strength, mobility, community reintegration, decreased burden of care on others and family education.
CVA: Secondary prophylaxis with aspirin, plavix x 21 days, atorvastatin, and blood pressure control (SBP less than 180 and diastolic less than 100 to participate with therapy for ischemic stroke). Continue to monitor neurologic status.
Right dominant hemiparesis: High risk for falls and sliding out of chair/bed. Safety reinforced.
- Avoid using affected arm to help lift or pull patient as this will cause trauma to the shoulder.
Dysphagia: speech evaluation
Dysarthria: speech evaluation
Peripheral polyneuropathy: Patient with a stocking distribution pattern chronically, but no ankle/foot weakness on examination.
-History of EtOH and could have contributions. Cessation recommended.
-Thiamine
-Could consider gabapentin for neuropathic symptoms
HTN: continue HCTZ, monitor closely
HLD: Statin
Skin: monitor for pressure sores/rashes/lesions.
Pain: acetaminophen as needed.
Bowel: Colace and Senna, PRN bisacodyl.
Alcohol Abuse: Alcohol cessation education, consider offering of outpatient alcohol abuse program
DVT Prophylaxis: ASA, Plavix
Pulmonary: Incentive spirometry
Safety: Continue to reinforce assistance with all transfers.
Code Status: Full code
Dispo (date/plan/equipment needs): Home with family care. Social history reviewed.
Functional and Medical Goals: Modified Independent with ADL�s, ambulation, transfers
Summary
-
Things that must be addressed in Hospital prior to discharge:
1. Please continue PT/OT.
2. Please consult speech.
3. Blood pressure must be less than 180 systolic and 100 diastolic for 24 hours before being stable for transfer to SNF/acute rehab.
Discharge Destination: Acute Rehab
- Still with min A with gait, and mobility dysfunction - could benefit from multispecialty therapy services with PT, OT and Speech therapy after stroke,
-Can tolerate 3hrs therapy/day
-Discussed with patient regarding benefits from inpatient rehab with CVA but she wanted to more likely consider going home with home therapies. If improves mobility and safety with standing and ambulation, she could then consider D/C with family
assistance at home.
Summary of recommendations:
- Discharge Destination: Recommended acute rehab but patient will discuss with family and decide.
Will sign off, please re-consult if needed.
Thank you for allowing me to care for your patient. Please contact me with any questions or concerns.
Data Reviewed
-
Radiology: Image Personally Visualized and interpreted and Report Reviewed by me
Labs: Labs Reviewed by me
Comments
-
This note was dictated using a voice recognition system. Please excuse any typographical errors from hostess cashier. If you believe there are any discrepancies, please notify our office.
[2024-03-07 15:30] VITALS: BP 141/80
--- NOTE | 2024-03-07 15:53 | CM ---
Alert awake oriented patient who lives with her Fabiano who lives in a 2 story home with 2 steps to enter and 14 to bed bathroom. She is independent in driving and in all activities of daily living.Reviewed PT OT with pt she requested [facility] .
Renée Yañez [facility] notified.
No adaptive devices
Never had VN/SNF
Pharmacy [facility]
PCP Morelia VALLES
PLAN Home with [facility]
[2024-03-07] MEDS: TYLENOL 1000 MG PO (16:09)
[2024-03-07] MEDS: LIPITOR 80 MG PO (17:05)
[2024-03-07 19:57] VITALS: BP 144/76
[2024-03-07 23:45] VITALS: BP 134/78
[2024-03-08] VITALS (8 sets, daily range): BP systolic 87–153; BP diastolic 50–85; PULSE 73–99; O2SAT 95
--- NOTE | 2024-03-08 07:48 | PTCARENOTE ---
Had an episode of bilateral lower extremity weakness after waking up and walking to bathroom, reporting she's 'only felt this way when the symptoms first started.' full NIHSS done, score=1 for decreased sensation in RUE, specifically R hand. NIHSS
is unchanged from previous RN's assessment. No measurable weakness or ataxia, or other signs of stroke. VSS. Dr. Lee and Dr. Cramer made aware.
--- NOTE | 2024-03-08 08:27 | W.PN.HOSP.TC ---
Today's Communication/Plan
-
Replete Magnesium
abd binder
reduce HCTZ
monitor orthostatic vitals
ST/PT/OT
Assessment / Plan
Assessment / Plan
Physical Exam
General: No Apparent Distress and Conversant
HEENT: NormoCephalic, Anicteric and Moist mucous membranes
Respiratory: Clear
Cardiac: S1/S2 and Regular Rhythm; No Murmur
GI: Soft, Non Tender, Non Distended and Normal Bowel Sounds
Musculoskeletal: No Edema
Skin: Warm and Dry
Neuro: AO x 3 strength 4/5 RUE rest of ext's 07/18
Psych: Calm and Intact Judgment/Insight
73F HTN HLD prior hx ETOH use p/w with acute onset ambulatory and speech difficulty ultimately found to have stroke on MRI
Presumed acute CVA
Risks; current smoker, HLD, HTN
- NEG HCT
- H & N CTA unremarkable to correlate with current neurological symptoms
- A1C 5.8, Lipid panel appreciated Hyperlipidemia LDL 124 (goal LDL<70) started on high dose atorvastatin, continue
- ECHO appreciated EF 55-60% no significant change compared to prior ECHO 2013
- Brain MRI appreciated 8 mm acute/subacute nonhemorrhagic left thalamic infarct
- Neuro consult appreciated ASA Plavix 21 days then asa alone
-PT/OT PMR eval appreciated Acute Rehab, patient and however declining in favor of home services
HX Chronic neuropathy with waxing and waning course of paraesthesia in Right hand and right foot neuropathy
Daily ETOH use
- Noted Nl MCV
- B12 and Folate non-deficient
Current smoker
- cessation of smoking strongly advised
Essential HTN
Orthostatic Hypotension
- completed permissive hypertension
- cont IT SERVICE CONTINUITY SUPERVISOR HCTZ, dose reduced to 25 mg daily from home 50 mg
-abd binder
Hypomagnesemia
-monitor and replete as necessary
HLD
- started on atorvastatin as above
-low cholesterol diet recommended
PMHX:
HX Melanoma right upper extremity s/p Right upper extremity Mohs suregery
GERD
Arthritis
Osteoporosis on Alendronate Q Thu
Vertigo
DVT Px: SCD
Code: Full
IP TLM
Discussed with patient and her Fabiano
I spent a total of 50 minutes with the patient or on the floor. More than 50% of this time involved counseling and coordination of care.
Anticipated Discharge: Within 24 hours
Subjective/Interval History
-
Date of Service: March 08, 2024
Noted episode b/l lower ext weakness on waking and walking to bathroom. NIH scale remained low as per nurse assessment. Noted associate orthostatic hypotension and hypomagnesemia possibly contributing to symptoms.
Objective Data
-
Labs:
Laboratory Results
03/08/24
07:10
WBC Pending
Hgb Pending
Hct Pending
Plt Count Pending
Sodium Pending
Potassium Pending
Chloride Pending
Carbon Dioxide Pending
BUN Pending
Creatinine Pending
Glucose Pending
Calcium Pending
Vital Signs:
Vital Signs
Temp Pulse Resp BP Pulse Ox
98.2 F 71 17 149/84 96
03/08/24 07:01 03/08/24 07:01 03/08/24 07:01 03/08/24 07:01 03/08/24 07:01
I&O
03/07/24 03/08/24 03/09/24
06:59 06:59 06:59
Intake Total 240 / 240 1080 / 1080
Balance 240 / 240 1080 / 1080
[2024-03-08] MEDS: PLAVIX 75 MG PO (08:42)
[2024-03-08] MEDS: VITAMIN B1 100 MG PO (08:42)
[2024-03-08] MEDS: ORETIC 50 MG PO (08:42)
[2024-03-08] MEDS: LOW STRENGTH ASPIRIN 81 MG PO (08:42)
[2024-03-08 08:44] LABS: Hematocrit 42.9 % (37.0-47.0); Hemoglobin 14.6 g/dL (12.0-16.0); Mean Corpuscular Volume 91.1 fL (81.0-99.0); Mean Platelet Volume 9.4 fL (7.4-10.4); Platelet Count 264 10^3/uL (130-400); Red Blood Cell Count 4.71 10^6/uL (4.20-5.40); Red Cell Dist. Width 12.4 % (11.5-14.5); White Blood Cell Count 7.4 10^3/uL (4.8-10.8)
[2024-03-08 09:13] LABS: Blood Urea Nitrogen 16 mg/dl (7-17); Calcium 10.1 mg/dl (8.4-10.2); Carbon Dioxide 29 mmol/L (22-30); Chloride 91 mmol/L (98-107); Estimated Creatinine Clearance 64 ml/min; Glucose 120 mg/dl (70-99); Magnesium 1.2 mg/dl (1.6-2.3); Phosphorus 3.8 mg/dl (2.5-4.5); Potassium 3.7 mmol/L (3.5-5.1); Sodium 131 mmol/L (135-145); eGFR > 60.00
--- NOTE | 2024-03-08 09:36 | PN.CDI ---
CDI
- -
CDI:
Physician Documentation Request
Admit Date: 03/06/24 13:28
Dear Doctor Jesus,
Patient admitted for evaluation of presumed acute CVA.
Sodium results:
Laboratory Tests
03/06/24 03/08/24
09:55 07:10
Sodium 132 L 131 L
Could you please provide a diagnosis that supports the above lab abnormalities and additional evaluation/monitoring:
Hyponatremia
Abnormal lab value clinically insignificant
Other
Use of terms such as suspected, likely, concern for, or probable (associated with a specific diagnosis that is being evaluated, monitored, or treated as if it exists) are acceptable and can be coded in the inpatient setting, when documented at the
time of discharge.
Thank you,
Ana Correia RN, BSN
CDI Specialist
tiger text
Please use your independent medical judgment in providing your response.
[2024-03-08] MEDS: MAGNESIUM SULFATE 100 IV (12:13)
--- NOTE | 2024-03-08 14:10 | PTOTSP ---
SPEECH THERAPY SPEECH/LANGUAGE/COGNITIVE COMMUNICATION EVALUATION:
Patient exhibits mild expressive language impairments and mild-moderate cognitive communication impairments characterized by difficulties in the following areas: Word finding, Attention, STM, Executive functioning, Complex problem solving and
Visuospatial skills. Patient endorsed STM difficulties at baseline; However, patient reported language and other cognitive areas are below patient's normal level at this time. Language and cognitive communication impairments are likely acutely
related to acute CVA. Recommend ST services to follow at the acute care level and continued upon discharge to further assess and treat expressive language and cognitive communication impairments. Discussed with patient, who reported she will pursue
home health at this time.
--- NOTE | 2024-03-08 16:58 | CM ---
Spoke with pt in room .
She requested [facility] with speech at home .
PLAN Home with [facility]
[2024-03-08] MEDS: LIPITOR 80 MG PO (17:33)
[2024-03-09 03:00] VITALS: BP 126/71
[2024-03-09 05:38] LABS: Hematocrit 42.4 % (37.0-47.0); Hemoglobin 14.5 g/dL (12.0-16.0); Mean Corp Hgb Conc. 34.2 g/dL (33.0-37.0); Mean Corpuscular Hgb 31.3 pg (27.0-31.0); Mean Corpuscular Volume 91.6 fL (81.0-99.0); Mean Platelet Volume 9.2 fL (7.4-10.4); Platelet Count 259 10^3/uL (130-400); Red Blood Cell Count 4.63 10^6/uL (4.20-5.40); Red Cell Dist. Width 12.5 % (11.5-14.5); White Blood Cell Count 8.2 10^3/uL (4.8-10.8)
[2024-03-09 06:02] LABS: Blood Urea Nitrogen 20 mg/dl (7-17); Calcium 9.8 mg/dl (8.4-10.2); Carbon Dioxide 31 mmol/L (22-30); Chloride 91 mmol/L (98-107); Estimated Creatinine Clearance 64 ml/min; Glucose 113 mg/dl (70-99); Magnesium 1.6 mg/dl (1.6-2.3); Potassium 3.5 mmol/L (3.5-5.1); Sodium 131 mmol/L (135-145); eGFR > 60.00
--- NOTE | 2024-03-09 07:13 | W.PN.HOSP.TC ---
Today's Communication/Plan
-
discharge
Assessment / Plan
Assessment / Plan
Physical Exam
General: No Apparent Distress and Conversant
HEENT: NormoCephalic, Anicteric and Moist mucous membranes
Respiratory: Clear
Cardiac: S1/S2 and Regular Rhythm; No Murmur
GI: Soft, Non Tender, Non Distended and Normal Bowel Sounds
Musculoskeletal: No Edema
Skin: Warm and Dry
Neuro: AO x 3 strength 4/5 RUE rest of ext's 07/18
Psych: Calm and Intact Judgment/Insight
73F HTN HLD prior hx ETOH use p/w with acute onset ambulatory and speech difficulty ultimately found to have stroke on MRI
Presumed acute CVA
Risks; current smoker, HLD, HTN
- NEG HCT
- H & N CTA unremarkable to correlate with current neurological symptoms
- A1C 5.8, Lipid panel appreciated Hyperlipidemia LDL 124 (goal LDL<70) started on high dose atorvastatin, continue
- ECHO appreciated EF 55-60% no significant change compared to prior ECHO 2013
- Brain MRI appreciated 8 mm acute/subacute nonhemorrhagic left thalamic infarct
- Neuro consult appreciated ASA Plavix 21 days then asa alone
-PT/OT PMR eval appreciated Acute Rehab, patient and however declining in favor of home services
HX Chronic neuropathy with waxing and waning course of paraesthesia in Right hand and right foot neuropathy
Daily ETOH use
- Noted Nl MCV
- B12 and Folate non-deficient
Current smoker
- cessation of smoking strongly advised
Essential HTN
Orthostatic Hypotension
- completed permissive hypertension
- cont [employer] HCTZ, dose reduced to 25 mg daily from home 50 mg
-abd binder
Hypomagnesemia
-monitor and replete as necessary
HLD
- started on atorvastatin as above
-low cholesterol diet recommended
Mild Hyponatremia
PMHX:
HX Melanoma right upper extremity s/p Right upper extremity Mohs suregery
GERD
Arthritis
Osteoporosis on Alendronate Q Thu
Vertigo
DVT Px: SCD
Code: Full
IP TLM
Medically stable for discharge home with home services and outpatient follow up recommendations.
Discussed with patient and her Fabiano
Total Time Preparing Discharge ___40____ minutes including examination of the patient, summary of the hospital stay, instructions for continuing care to all relevant caregivers; and preparation of discharge records, prescriptions, and referral
forms if necessary.
Anticipated Discharge: Today
Subjective/Interval History
-
Date of Service: March 09, 2024
Seen and examined at bedside in no acute distress sitting up comfortably in chair. Overall reports feeling well. Eager to go home.
Objective Data
-
Labs:
Laboratory Results
03/09/24
05:06
WBC 8.2
Hgb 14.5
Hct 42.4
Plt Count 259
Sodium 131 L
Potassium 3.5
Chloride 91 L
Carbon Dioxide 31 H
BUN 20 H
Creatinine 0.6
Glucose 113 H
Calcium 9.8
Vital Signs:
Vital Signs
Temp Pulse Resp BP Pulse Ox
98.4 F 71 12 126/71 96
03/09/24 03:00 03/09/24 03:00 03/09/24 03:00 03/09/24 03:00 03/09/24 03:00
I&O
03/08/24 03/09/24 03/10/24
06:59 06:59 06:59
Intake Total 1080 / 1080 580 / 580
Balance 1080 / 1080 580 / 580
[2024-03-09 07:55] VITALS: BP 131/73
[2024-03-09] MEDS: VITAMIN B1 100 MG PO (09:10)
[2024-03-09] MEDS: PLAVIX 75 MG PO (09:11)
[2024-03-09] MEDS: ORETIC 25 MG PO (09:11)
[2024-03-09] MEDS: LOW STRENGTH ASPIRIN 81 MG PO (09:12)
[2024-03-09 11:41] VITALS: BP 129/71
[2024-03-09] MEDS: MAGNESIUM SULFATE 100 IV (12:14)
[2024-03-09 12:26] LABS: Creatine Phosphokinase 62 U/L (30-135)
[2024-03-09 15:30] VITALS: BP 138/72
--- NOTE | 2024-03-09 16:23 | W.DCSUMMARY ---
Discharge Summary
Discharge Data
Date of Admission: 03/06/24
Date of Discharge: 03/09/24
-
Pending Results: No
Discharge Plan
-
Patient Disposition: Home with Home Care
Discharge Diagnosis/Procedures: Stroke
Neuropathy
Hypertension
Orthostatic Hypotension
Hypomagnesemia
Hyperlipidemia
Mild Hyponatremia
Condition: Fair
Diet: Low Cholesterol
Activity: With assistance, As tolerated and With Walker
Driving Restrictions: Not until seen by your Dr
Bathing Restrictions: None
Blood Work: Please repeat BMP and Magnesium level with primary care provider in 1 week of discharge.
Other Services: PT, OT and ST
Activity Restrictions/Additional Instructions:
Please follow up with primary care provider in 1 week of discharge and Neurology in 1 month of discharge.
Aspirin and Plavix have been prescribed for stroke. Your last day/dose with Plavix is March 26, 2024. Continue aspirin indefinitely or until otherwise instructed by your healthcare provider.
Atorvastatin has been prescribed for hyperlipidemia and stroke risk reduction.
Hydrochlorothiazide has been reduced from 50 mg daily to 25 mg daily due to orthostatic hypotension.
Magnesium supplementation has been prescribed for Magnesium deficiency.
Please take medications as prescribed/recommended and follow up with primary care provider and/or other healthcare provider involved in your care for refills and/or further adjustment to your medication regimen as necessary.
It is strongly advised that you abstain from further tobacco use/smoking and Alcohol use as continued usage will likely lead to worsening of neuropathy, worsening of your overall condition, increase your risk of stroke recurrence, and increase your
risk of morbidity/mortality.
Referrals:
Salty Cramer MD [Active] - in one month
Ana Grace PA-C [Family Provider] - in one week
Prescriptions:
New
atorvastatin 80 mg Tablet
80 mg PO QPM Qty: 30 0RF
clopidogrel 75 mg Tablet
75 mg PO DAILY Qty: 17 0RF
Rx Instructions:
Mar 26, 2024 is your last day/dose with Plavix.
aspirin 81 mg Tablet,Chewable
81 mg PO DAILY Qty: 30 0RF
hydrochlorothiazide 25 mg Tablet
25 mg PO DAILY Qty: 30 0RF
magnesium oxide 500 mg magnesium Tablet
500 mg PO DAILY Qty: 30 0RF
Continued
alendronate [Fosamax] 70 mg Tablet
70 mg PO WE
cholecalciferol (vitamin D3) [Vitamin D3] 25 mcg (1,000 unit) Tablet
25 mcg PO DAILY
Arthritis Gel gel
1 applic topical DAILY
therapeutic multivitamin Tablet
1 tab PO DAILY
Changed
diphenhydramine HCl [Benadryl] 25 mg Capsule
50 mg PO HSPRN PRN (Reason: sleep) Qty: 1 0RF
Held
Excedrin Extra Strength 250-250-65 mg Tablet
2 tab PO BID
Hold Instructions: Hold further Excedrin use at this time given dual antiplatelet (aspirin plavix for stroke) due to concern interaction.
Discontinued
hydrochlorothiazide 50 mg tablet
50 mg PO DAILY
Rx Instructions:
HOLD if systolic blood pressure <130 while on Percocet.
magnesium
2 tab PO BID
Rx Instructions:
strength unknown
Discharge Orders:
Discharge Patient (As Directed); Ordered 03/09/24
Ordered By: Patric Lee
Discharge Date and Time
Print Language: ERITREAN
[2024-03-09] MEDS: LIPITOR 80 MG PO (17:27)
== END 2024-03-09 18:16 | disposition home health service (06) | DRG 65 ==
LOC: 3 WEST ACU 13:28
PROVIDERS: Physician Assistant; ADMITTING PHYSICIAN Internal Medicine; ATTENDING PHYSICIAN Internal Medicine; CONSULT PHYSICIAN Physical Medicine & Rehabilitation; CONSULT PHYSICIAN Psychiatry & Neurology Neurology; EMERGENCY PHYSICIAN Emergency Medicine; FAMILY PHYSICIAN Physician Assistant Medical
DX: I63.89 Other cerebral infarction (principal); E87.1 Hypo-osmolality and hyponatremia; G81.91 Hemiplegia, unspecified affecting right dominant side; G57.91 Unspecified mononeuropathy of right lower limb; I10 Essential (primary) hypertension; I95.1 Orthostatic hypotension; E83.42 Hypomagnesemia; E78.00 Pure hypercholesterolemia, unspecified; Z79.83 Long term (current) use of bisphosphonates; K21.9 Gastro-esophageal reflux disease without esophagitis; M19.90 Unspecified osteoarthritis, unspecified site; M81.0 Age-related osteoporosis without current pathological fracture; Z79.82 Long term (current) use of aspirin; Z85.820 Personal history of malignant melanoma of skin; Z96.651 Presence of right artificial knee joint; Z98.41 Cataract extraction status, right eye; Z98.42 Cataract extraction status, left eye; Z98.1 Arthrodesis status; F17.200 Nicotine dependence, unspecified, uncomplicated; G43.909 Migraine, unspecified, not intractable, without status migrainosus; Z79.899 Other long term (current) drug therapy; R47.1 Dysarthria and anarthria
CPT/HCPCS: 93308; 70450; 70496; 70498; 70551; 80048; 80053; 80061; 82077; 82550; 82607; 82728; 82746; 82962; 83036; 83735; 84100; 85025; 85027; 85652; 92523; 92610; 93005; 93321; 93325; 97163; 97167; 97530; 99285; Q9967

== ENCOUNTER 2024-03-17 21:48 | Observation (INO) | payer OTHER, SELFPAY ==
[2024-03-17] VITALS (7 sets, daily range): BP systolic 114–149; BP diastolic 70–94; BMI 22.4
[2024-03-17 15:33] LABS: % Basophils 0.4 % (0-2); % Eosinophils 3.3 % (0-6); % Immature Granulocytes 0.2 % (0-0.5); % Lymphocytes 22.9 % (20.5-51.1); % Monocytes 8.3 % (1.7-9.3); % Neutrophils 64.9 % (42.2-75.2); Absolute Eosinophils 0.3 10^3/uL (0-0.7); Absolute Lymphocytes 2.4 10^3/uL (1.2-3.4); Absolute Monocytes 0.9 10^3/uL (0.1-0.6); Absolute Neutrophils 6.7 10^3/uL (1.4-6.5); Hematocrit 43.2 % (37.0-47.0); Hemoglobin 15.2 g/dL (12.0-16.0); Mean Corp Hgb Conc. 35.2 g/dL (33.0-37.0); Mean Corpuscular Hgb 31.6 pg (27.0-31.0); Mean Corpuscular Volume 89.8 fL (81.0-99.0); Mean Platelet Volume 9.3 fL (7.4-10.4); Nucleated Red Blood Cells % 0 %; Platelet Count 285 10^3/uL (130-400); Red Blood Cell Count 4.81 10^6/uL (4.20-5.40); Red Cell Dist. Width 11.8 % (11.5-14.5); White Blood Cell Count 10.3 10^3/uL (4.8-10.8)
[2024-03-17 16:39] LABS: ALT (SGPT) 36 U/L (0-35); AST (SGOT) 48 U/L (14-36); Albumin 4.7 g/dl (3.5-5.0); Alkaline Phosphatase 95 U/L (38-126); Blood Urea Nitrogen 20 mg/dl (7-17); Calcium 10.5 mg/dl (8.4-10.2); Carbon Dioxide 30 mmol/L (22-30); Chloride 91 mmol/L (98-107); Glucose 120 mg/dl (70-99); Potassium 4.8 mmol/L (3.5-5.1); Sodium 132 mmol/L (135-145); Total Bilirubin 0.2 mg/dl (0.2-1.3); Total Protein 7.5 g/dl (6.3-8.2); eGFR > 60.00
--- NOTE | 2024-03-17 19:47 | ED.CVA ---
History of Present Illness
General
Chief Complaint: CVA/TIA Symptoms
Source: patient, records and spouse
Exam Limitations: none
Time Seen by Provider: 03/17/24 19:34
Nursing documentation reviewed up to this point in time: agreed with
Onset of Stroke Symptoms
Onset of symptoms known: No
Time pt last seen normal is known: No
History of Present Illness
History of Present Illness:
73-year-old female admitted a week ago with left-sided stroke with right-sided weakness confirmed by MRI discharged with aspirin and Plavix, referred to the ER by PCP and physical therapist due to new left-sided weakness her prior stroke from a week
ago symptoms are improving her speech and her right leg weakness but PCP physical therapist noticed weakness of her left leg denies headache denies nausea denies vomiting no fevers has been compliant with her meds but she is due for her evening
Plavix
Past History
Past History
ED Past Medical History: Cancer (Melanoma right upper extremity), CVA (Left basal ganglia February 2024), GERD, HTN, Hypercholesterolemia and Other (Arthritis, COVID-19, osteoporosis, vertigo); Negative NIDDM
ED Past Surgical History: Orthopedic (Right TKA 2014, L3-S1 laminectomy 2022) and Other (Right upper extremity Mohs, left lumpectomy, left eyelid ptosis repair, LASIK eye surgery, bilateral cataract extractions, wisdom teeth extractions)
Social History
Tobacco: Smoker
Alcohol: Daily
Drug: None
Family History
Family History: Other (Reviewed and noncontributory)
Phy Exam
Physical Exam
Physical Exam:
Physical Exam
General: no apparent distress, not acutely ill
Neck: No tongue
Heart: s1/s2 regular rate and rhythm, no murmur. equal radial pulses.
Lungs: no acute respiratory distress. clear bilaterally
Abdomen: Nontender
Neuro: alert and oriented. Mild left lower extremity weakness
Skin: no rash
Psychiatric: well kept. interactive and cooperative
Extremities: no edema.
Course
Orders/Labs/Results
Orders:
Orders
03/17/24 15:18
Electrocardiogram (*1) Urgent
Reason for Study: Chest Pain
EKG- Treatment ONCE
03/17/24 15:[address] [CT Head W/o Iv Contrast] Urgent
Comment:
Reason For Exam: weakness
03/17/24 15:26
Complete Blood Count/With Diff Urgent
Comprehensive Metabolic Panel Urgent
03/17/24 19:47
Clopidogrel Bisulfate [Plavix] 75 mg PO NOW STA
Abnormal Lab Results
03/17/24
15:26
MCH 31.6 H pg
(27.0-31.0)
Absolute Neuts (auto) 6.7 H 10^3/uL
(1.4-6.5)
Absolute Monos (auto) 0.9 H 10^3/uL
(0.1-0.6)
Sodium 132 L mmol/L
(135-145)
Chloride 91 L mmol/L
(98-107)
BUN 20 H mg/dl
(7-17)
Glucose 120 H mg/dl
(70-99)
Calcium 10.5 H mg/dl
(8.4-10.2)
AST 48 H U/L
(14-36)
ALT 36 H U/L
(0-35)
03/17/24 15:26
03/17/24 15:26
Vital Signs
Initial and Last Documented VS:
Initial Vital Signs
Temp Pulse Resp BP Pulse Ox
98 F 80 16 114/70 96
03/17/24 15:13 03/17/24 15:13 03/17/24 15:13 03/17/24 15:13 03/17/24 15:13
Last Documented Vital Signs
Temp Pulse Resp BP Pulse Ox
99.2 F 68 15 144/86 97
03/17/24 16:47 03/17/24 19:32 03/17/24 19:32 03/17/24 19:32 03/17/24 16:47
MDM/Problems Addressed
Differential Diagnosis Includes:
Stroke deconditioning radiculopathy
MDM/Problems Addressed:
Left-sided weakness in the setting of recent right-sided stroke
Chronic conditions affecting care: Neurological disorder
Acute Exacerbation and/or Progression of Chronic Illness: Neurological disorder
*Radiology
Radiology exam reviewed: radiology read reviewed
*Pulse Oximetry
Patient hypoxic: no
*EKG
Interpreted by ED Provider?: Yes
EKG Intrepretation Time: 19:51
Interpretation: normal
Heart Rate: 78
Rate: normal
Rhythm: sinus
Ischemia: no ischemia
*Info Specialist Interpretation
Rate: normal
Interpretation: normal
Heart Rate: 78
Rhythm: sinus
*Critical Care Note
Total Time (30-74mins, 75-104mins- exclusive of procedures): Not Applicable
Data Reviewed
Review of Other/Old Records Reveals: Labs, Records and Radiology Studies
Source: patient and spouse
Update Note
Update Note:
Update subacute onset of left-sided weakness in the setting of a confirmed stroke with right-sided weakness her right-sided symptoms are improving PCP physical therapist both reportedly think she has new weakness, neurology notes reviewed no note of
left-sided symptoms at discharge, I do think she does have some left-sided subtle symptoms on my exam at this point I believe will be prudent to admit her to the hospital consideration for advanced imaging specialty consultation family is in
agreement
ED Attending Note
-
Portions of this chart may have been created with voice recognition software.� Occasional wrong word or��sound alike� substitutions may have occurred due to the inherent limitations of voice recognition software.
Discharge Plan
Departure
Patient Disposition: Admit
Date of Disposition: 03/17/24
Time of Disposition: 19:52
Admit to: Telemetry
Presentation/result/management discussed w/ accepting MD/DO: Hospitalist
Patient with high blood pressure during this ER visit?: Yes
Condition: Fair
Discharge Problem:
Left-sided muscle weakness
Prescriptions:
No Action
alendronate [Fosamax] 70 mg Tablet
70 mg PO WE
cholecalciferol (vitamin D3) [Vitamin D3] 25 mcg (1,000 unit) Tablet
25 mcg PO DAILY
Arthritis Gel gel
1 applic topical DAILY
therapeutic multivitamin Tablet
1 tab PO DAILY
Excedrin Extra Strength 250-250-65 mg Tablet
2 tab PO BID
atorvastatin 80 mg Tablet
80 mg PO QPM Qty: 30 0RF
clopidogrel 75 mg Tablet
75 mg PO DAILY Qty: 17 0RF
Rx Instructions:
Mar 26, 2024 is your last day/dose with Plavix.
aspirin 81 mg Tablet,Chewable
81 mg PO DAILY Qty: 30 0RF
hydrochlorothiazide 25 mg Tablet
25 mg PO DAILY Qty: 30 0RF
diphenhydramine HCl [Benadryl] 25 mg Capsule
50 mg PO HSPRN PRN (Reason: sleep) Qty: 1 0RF
magnesium oxide 500 mg magnesium Tablet
500 mg PO DAILY Qty: 30 0RF
Interventions
Interventions:
*Risk Screen - Suicide Last Done: 03/17/24 15:13
*General Assessment Last Done: 03/17/24 15:13
*Neglect/Abuse Screening Last Done: 03/17/24 15:13
*ED COVID-19 Vaccine History Last Done: 03/17/24 19:35
ED- Pulmonary Assessment Last Done: 03/17/24 19:35
ED- Neurological Assessment Last Done: 03/17/24 19:35
ED- Cardiac Assessment Last Done: 03/17/24 19:35
Discharge Date and Time
Print Language: [place] CITIZEN
[2024-03-17] MEDS: PLAVIX 75 MG PO (19:57)
--- NOTE | 2024-03-17 20:38 | HPS.HSE ---
Family Physician
-
Family Physician: Ana Grace
Chief Complaint
-
Left-sided weakness
History of Present Illness
Patient is a 73-year-old female with past medical history significant for hypertension, hyperlipidemia, CVA, CKD II, and GERD who presented to [place] ED for evaluation of left-sided weakness. Patient recently discharged on 03/09/2024 s/p
left-sided stroke with right-sided weakness, right-sided symptoms improving. Physical therapist observed new onset left-sided weakness and evaluated by PCP who also agrees patient with new onset left-sided weakness and recommended ED for evaluation.
Patient denies any headache, dizziness, fevers, chills, cough, shortness of breath, nausea, vomiting, constipation, diarrhea or urinary symptoms.
Medical History
Past Medical History
Past Medical History: Reports Other
Additional Past Medical History:
benign hypertension
hyperlipidemia
CVA
CKD II
GERD
Hx melanoma to RUE s/p MOHS
osteoporosis
vertigo
Past Surgical History: Reports Other
Additional Past Surgical History:
right TKA (2014)
laminectomy (2022)
left breast lumpectomy
bilateral cataract extraction
bilateral Lasik
wisdom teeth extraction
Social History
Tobacco: Former Smoker (quit 45 years ago)
Alcohol: Daily (2-3 glasses of wine nightly, last drink was previous to prior admission 03/06/2024)
Drug: None
Personal:
Living: With Family
Employment: Retired
Family History
Family History: Not pertinent
Allergies / Home Medications
Allergies reflects when Allergies were last updated in [facility].
Home Medications with original date entered in [facility]
Allergy/Medication List:
Allergies
Allergy/AdvReac Type Severity Reaction Status Date / Time
pollen extracts Allergy Nasal Verified 03/17/24 15:13
Congestion
Home Medications
alendronate 70 mg tablet (Fosamax) 70 mg PO WE osteoporosis 07/09/22
Arthritis Gel 1 applic topical DAILY stiff joints 03/06/24
therapeutic multivitamin 1 tab PO DAILY Supplement 03/06/24
aspirin 81 mg chewable tablet 81 mg PO DAILY #30 tabs 03/09/24
clopidogrel 75 mg tablet 75 mg PO DAILY #17 tabs 03/09/24
diphenhydramine HCl 25 mg capsule (Benadryl) 50 mg (2 x 25 mg) PO HSPRN PRN sleep #1 cap 03/09/24
hydrochlorothiazide 25 mg tablet 25 mg PO DAILY #30 tabs 03/09/24
magnesium oxide 500 mg PO DAILY #30 tabs 03/09/24
atorvastatin 80 mg tablet 80 mg PO HS 03/17/24
Review of Systems
-
History Source: Patient
A 12 point ROS was completed and negative except as noted: Yes
Constitutional: Reports No Symptoms
EENT: Reports No Symptoms
Respiratory: Reports No Symptoms
Cardiac: Reports No Symptoms
Abdomen/GI: Reports No Symptoms
: Reports No Symptoms
Musculoskeletal: Reports No Symptoms
Skin: Reports No Symptoms
Neurological: Reports Weakness (left-sided )
Endocrine: Reports No Symptoms
Hematologic/Lymphatic: Reports No Symptoms
Psych: Reports No Symptoms
Physical Exam
Vital Signs
Vital Signs
Temp Pulse Resp BP Pulse Ox
99.2 F 67 16 149/94 98
03/17/24 16:47 03/17/24 20:00 03/17/24 20:00 03/17/24 20:00 03/17/24 20:00
Physical Exam
General: Well Developed, Well Nourished, No Apparent Distress, Comfortable and Conversant
HEENT: NormoCephalic, Moist mucous membranes, Atraumatic, PERRLA, [place] Conjunctivae, Nose Appears Normal and Ears Appear Normal
Respiratory: Clear and Non Labored Respirations
Cardiac: S1/S2 and Regular Rhythm; No Murmur, Rub or Gallop
Breast: Deferred by me
GI: Soft, Non Tender, Non Distended and Normal Bowel Sounds; No Organomegaly
Rectal: Deferred by Provider
Genito-urinary: Deferred by me
Musculoskeletal: No Clubbing, No Cyanosis and No Edema
Skin: Warm and IV/Catheter Site; No Rash
Neuro: Awake, Alert, AO x 3, No Motor Deficits, Nonfocal/grossly intact, Cranial Nerves Intact and No Sensory Deficits; No Slurred Speech or Facial Droop
Hematologic/Lymphatic: No Lymphadenopathy
Psych: Calm and Intact Judgment/Insight
Laboratory Results
-
03/17/24 15:26
03/17/24 15:26
Laboratory Results
Total Bilirubin 0.2 mg/dl (0.2-1.3) 03/17/24 15:26
AST 48 U/L (14-36) H 03/17/24 15:26
ALT 36 U/L (0-35) H 03/17/24 15:26
Alkaline Phosphatase 95 U/L (38-126) 03/17/24 15:26
Data Reviewed
-
CT Scan: Report Reviewed by me (Head: No acute intracranial hemorrhage. Interval development of a small focus of diminished attenuation in the posterior right frontal ornelas radiata measuring 7 mm. Findings consistent with interval small focal
white matter infarct. No associated mass effect.)
Medical Tests (Nuc Med, Echo, EKG etc): Report Reviewed by me (EKG: NORMAL SINUS RHYTHM VOLTAGE CRITERIA FOR LEFT VENTRICULAR HYPERTROPHY ( R in aVL , Sokolow-Romo , Stephen product ))
Lab Data: Labs Reviewed by me
Impression/Plan
-
IMPRESSION/PLAN:
#CVA/TIA symptoms
Left-sided weakness
Head CT: No acute intracranial hemorrhage.
Interval development of a small focus of diminished attenuation in the posterior right frontal ornelas radiata measuring 7 mm. Findings consistent with interval small focal white matter infarct. No associated mass effect.
EKG: NORMAL SINUS RHYTHM
VOLTAGE CRITERIA FOR LEFT VENTRICULAR HYPERTROPHY ( R in aVL, Sokolow-Romo, Stephen product )
- Admit to telemetry
- Consult Neurology
- NIH
- Neurochecks
#benign hypertension
- continue HCTZ
#hyperlipidemia
- continue atorvastatin
#CVA
previous confirmed with MRI
MRI (03/06/2024): 8 mm acute/subacute nonhemorrhagic left thalamic infarct
There is moderate cortical and cerebellar atrophy with moderate nonspecific white matter changes as described above.
- continue aspirin and clopidogrel
#CKD II
BUN 20, Creat 0.6, GFR >60.0
- monitor BMP
#osteoporosis
- continue alendronate, and arthritis gel out patient
#GERD
#Hx melanoma to NURIS s/p MOHS
#vertigo
Code Status: Full Code
DVT Prophylaxis: SCDs
--- NOTE | 2024-03-17 21:21 | W.PN.UPDATE ---
Update Note
Progress Note Update
Patient seen in conjunction with TAMMY. I concur with the history and physical. I agree with assessment and plan unless stated otherwise.
This is a 73-year-old female who was recently here with right-sided weakness and found to have a left-sided stroke. She was placed on appropriate therapy with Plavix aspirin and statin. At the time of discharge she still had some of right-sided
weakness. She reported that approximately 2 days after discharge she was noted to have increasing left-sided weakness which she states is mostly on the left leg. She denies any numbness tingling. She denies any other neurological deficits. She
has no new aphasia facial droop or asymmetry. She denies any headache. This weakness was also noted by her physical therapist and she was referred to the emergency department.
In the emergency department she was afebrile, blood pressure was 150/94 with a pulse of 67. ECG showed normal sinus rhythm at a rate of 81 which was unchanged from prior. CBC was unremarkable. Chemistries were also within normal limits. CT of
the head shows no acute changes.
On my examination there is a mild left-sided weakness compared to the right. Otherwise no focal neurological deficits.
A&P
New Left leg weakness concerning for right sided CVA -
- admit to telemetry
- CT head w/o bleeding or acute stroke
- get CT angio now as a large thrombus could change management lead,
- mri in am,
- neurology consult.
- continue aspirin, plavix and statin
DVT PPX - lovenox sq
Mari status - full code
[2024-03-17] MEDS: LIPITOR 80 MG PO (23:12)
[2024-03-17 23:38] LABS: Urine Albumin Negative (Neg - Trace); Urine Bilirubin Negative (Negative); Urine Character Clear (Clear); Urine Color Yellow; Urine Glucose Negative (Negative); Urine Ketone Negative (Negative); Urine Leukocyte 1+ (Negative); Urine Nitrite Negative (Negative); Urine Occult Blood Negative (Negative); Urine Specific Gravity 1.005 (<1.030); Urine Urobilinogen Negative (Neg - 1+)
[2024-03-18] VITALS (8 sets, daily range): BP systolic 108–130; BP diastolic 71–92; PULSE 77
[2024-03-18 00:11] LABS: Urine Squamous Cell >30 /LPF (Few)
[2024-03-18 00:13] LABS: Urine Red Blood Cell 0-2 /HPF (0-2)
[2024-03-18 00:14] LABS: Urine Bacteria Moderate (Negative)
[2024-03-18 05:46] LABS: Hematocrit 39.9 % (37.0-47.0); Hemoglobin 14.1 g/dL (12.0-16.0); Mean Corp Hgb Conc. 35.3 g/dL (33.0-37.0); Mean Corpuscular Hgb 31.2 pg (27.0-31.0); Mean Corpuscular Volume 88.3 fL (81.0-99.0); Mean Platelet Volume 9.4 fL (7.4-10.4); Platelet Count 244 10^3/uL (130-400); Red Blood Cell Count 4.52 10^6/uL (4.20-5.40); Red Cell Dist. Width 11.8 % (11.5-14.5); White Blood Cell Count 8.1 10^3/uL (4.8-10.8)
[2024-03-18 06:02] LABS: APTT 25.4 Sec (23.4-35.0); INR 0.87; PT 12.3 Sec (11.4-14.6)
[2024-03-18 06:16] LABS: ALT (SGPT) 34 U/L (0-35); AST (SGOT) 44 U/L (14-36); Albumin 4.2 g/dl (3.5-5.0); Alkaline Phosphatase 79 U/L (38-126); Blood Urea Nitrogen 13 mg/dl (7-17); Calcium 9.8 mg/dl (8.4-10.2); Carbon Dioxide 31 mmol/L (22-30); Chloride 93 mmol/L (98-107); Estimated Creatinine Clearance 64 ml/min; Glucose 103 mg/dl (70-99); HDL Cholesterol 50 mg/dl; LDL Cholesterol, Calculated 69 mg/dl; Potassium 3.4 mmol/L (3.5-5.1); Sodium 133 mmol/L (135-145); Total Bilirubin 0.3 mg/dl (0.2-1.3); Total Cholesterol 130 mg/dl (50-199); Total Protein 6.9 g/dl (6.3-8.2); Triglyceride 58 mg/dl (10-149); Very Low Density Lipoprotein 11 mg/dl (0-30); eGFR > 60.00
[2024-03-18 06:25] LABS: Troponin I < 0.012 ng/ml
[2024-03-18 06:59] LABS: Erythrocyte Sed Rate 17 mm/hour (0-20)
--- NOTE | 2024-03-18 08:26 | VNURNOTE ---
Chart reviewed. Patient is current with [facility] nursing, PT, OT, MATERIAL LIAISON. Will continue to follow hospital course and DC plans.
--- NOTE | 2024-03-18 09:27 | CON.NEURO ---
Neuro Assessment/Plan
Assessment
brain MRI 03/06/24 imgs and rept rev'd acute stroke L thalamus
head CT 03/17 showed new stroke right frontal ornelas
CTA head/neck no LVO, no significant stenosis
patient with recent stroke on aspirin 81, plavix 75, lipitor 80. in the CHANCE study, this lowered stroke risk from 11.7% to 8.2% unfortunately, she was among those who failed and presents with a new lacunar stroke right frontal ornelas. I do not
believe any additional workup is necessary, and I would restart the clock on 21 days of DAPT. there is not the possibility to escalate therapy. I have considered switching Plavix to ticagrelor, but consider this a lateral change as opposed to an
escalation of thereapy
Consultation
Order
Date of Consultation: 03/18/24
Requesting Provider: Damaris Mixon
Reason for Consult: stroke
Subjective/Objective
Subjective Data
Date of Service: March 18, 2024
Patient is a 73-year-old female with past medical history significant for hypertension, hyperlipidemia, CVA, CKD II, and GERD who presented to [place] ED for evaluation of left-sided weakness. Patient recently discharged on 03/09/2024 s/p left
thalamic stroke with right-sided weakness, right-sided symptoms improving. She was started on ASA 81, 21 days of plavix,
Physical therapist observed new onset left-sided weakness and evaluated by PCP who also agrees patient with new onset left-sided weakness and recommended ED for evaluation. Patient denies any headache, dizziness, fevers, chills, cough, shortness of
breath, nausea, vomiting, constipation, diarrhea or urinary symptoms.
In the ED, head CT showed new right frontal ornelas radiata infarct
Objective Data
Vital Signs
Temp Pulse Resp BP Pulse Ox
37.3 C 56 15 108/71 95
03/17/24 16:47 03/18/24 08:00 03/18/24 08:00 03/18/24 04:00 03/17/24 23:00
Lab Results
03/18/24 05:39
03/18/24 05:39
PT 12.3 Sec (11.4-14.6) 03/18/24 05:39
INR 0.87 03/18/24 05:39
APTT 25.4 Sec (23.4-35.0) 03/18/24 05:39
Sodium 133 mmol/L (135-145) L 03/18/24 05:39
Potassium 3.4 mmol/L (3.5-5.1) L D 03/18/24 05:39
BUN 13 mg/dl (7-17) 03/18/24 05:39
Glucose 103 mg/dl (70-99) H 03/18/24 05:39
Calcium 9.8 mg/dl (8.4-10.2) 03/18/24 05:39
LDL Cholesterol, Calc 69 mg/dl 03/18/24 05:39
Patient Allergies
pollen extracts Allergy (Verified 03/17/24 15:13)
Nasal Congestion
Physical Exam
-
AAOx3, speech clear, language intact
VFF, EOMI, face symmetric
full strength b/l UE, RLE full strength, LLE 5-/5
sensation intact touch/pin/temp
DTR normal/symmetric
Medications
-
Active Medications
Generic Name Dose Route Start Last Admin
Trade Name Freq PRN Reason Stop Dose Admin
Acetaminophen 650 mg 03/17/24 22:00
Acetaminophen 325 Mg Tablet PO 04/14/24 21:59
Q4HPRN PRN
HITCHCOCK, mild pain, or temp >100.4F
Aspirin 81 mg 03/18/24 08:00
Aspirin 81 Mg Chewable Tablet PO 04/15/24 07:59
DAILY MALCOLM
Atorvastatin Calcium 80 mg 03/17/24 22:00 03/17/24 23:12
Atorvastatin (Lipitor) 80 Mg Tablet PO 04/14/24 21:59 80 mg
HS MALCOLM Administration
Clopidogrel Bisulfate 75 mg 03/18/24 08:00
Clopidogrel 75 Mg Tablet PO 04/15/24 07:59
DAILY MALCOLM
Hydrochlorothiazide 25 mg 03/18/24 08:00
Hydrochlorothiazide 25 Mg Tablet PO 04/15/24 07:59
DAILY MALCOLM
Magnesium Oxide 500 mg 03/18/24 08:00
Magnesium Oxide 500 Mg Tablet PO 04/15/24 07:59
DAILY MALCOLM
Multivitamins Therapeutic 1 tablet 03/18/24 08:00
Multivitamin Tablet PO 04/15/24 07:59
DAILY MALCOLM
Sodium Chloride 0 flush 03/17/24 21:00
Sodium Chloride 0.9% (Flush) Syringe IV 04/14/24 20:59
PER PROTOCOL MALCOLM
Home Medications
�Medication �Instructions �Recorded
alendronate 70 mg tablet (Fosamax) 70 mg PO WE osteoporosis 07/09/22
Arthritis Gel 1 applic topical DAILY stiff joints 03/06/24
therapeutic multivitamin 1 tab PO DAILY Supplement 03/06/24
aspirin 81 mg chewable tablet 81 mg PO DAILY #30 tabs 03/09/24
clopidogrel 75 mg tablet 75 mg PO DAILY #17 tabs 03/09/24
diphenhydramine HCl 25 mg capsule 50 mg (2 x 25 mg) PO HSPRN PRN 03/09/24
(Benadryl) sleep #1 cap
hydrochlorothiazide 25 mg tablet 25 mg PO DAILY #30 tabs 03/09/24
magnesium oxide 500 mg PO DAILY #30 tabs 03/09/24
atorvastatin 80 mg tablet 80 mg PO HS 03/17/24
[2024-03-18] MEDS: PLAVIX 75 MG PO (09:48)
[2024-03-18] MEDS: LOW STRENGTH ASPIRIN 81 MG PO (09:48)
[2024-03-18] MEDS: MAGNESIUM OXIDE 500 MG PO (09:49)
[2024-03-18] MEDS: KCL 20 MEQ PO (09:49)
[2024-03-18] MEDS: THERAGRAN 1 TABLET PO (10:09)
--- NOTE | 2024-03-18 11:29 | W.PN.HOSP.TC ---
Today's Communication/Plan
-
Discharge home today
Assessment / Plan
Assessment / Plan
Patient is 73 years old with history of recent stroke 2 weeks ago came to the ER with left-sided
Seen right-sided stroke and CT scan.
Neurology recommending to continue same medical management
Seen by physical therapy recommended rehab but patient wants to go home.
CVA/TIA symptoms
Left-sided weakness
Head CT: No acute intracranial hemorrhage.
Interval development of a small focus of diminished attenuation in the posterior right frontal ornelas radiata measuring 7 mm. Findings consistent with interval small focal white matter infarct. No associated mass effect.
EKG: NORMAL SINUS RHYTHM
VOLTAGE CRITERIA FOR LEFT VENTRICULAR HYPERTROPHY ( R in aVL, Sokolow-Romo, [place] product )
- Admit to telemetry
- Consult Neurology---> continue current management
- NIH
- Neurochecks
#benign hypertension
- Hold HCTZ Tilman
#hyperlipidemia
- continue atorvastatin
#CVA
previous confirmed with MRI
MRI (03/06/2024): 8 mm acute/subacute nonhemorrhagic left thalamic infarct
There is moderate cortical and cerebellar atrophy with moderate nonspecific white matter changes as described above.
- continue aspirin and clopidogrel
#CKD II
BUN 20, Creat 0.6, GFR >60.0
- monitor BMP
#osteoporosis
- continue alendronate, and arthritis gel out patient
#GERD
#Hx melanoma to RUE s/p MOHS
#vertigo
Code Status: Full Code
DVT Prophylaxis: SCDs
Anticipated Discharge: Today
Subjective/Interval History
-
Date of Service: March 18, 2024
Patient seen and examined at bedside, denies any chest pain or shortness of breath, no abdominal pain, no nausea, no vomiting, no diarrhea or constipation.
Seen by neurology who recommended to continue current treatment, no need for MRI since CT shows stroke.
Seen by physical therapy recommended rehab but patient preferred to go home.
Objective Data
-
Labs:
Laboratory Results
03/18/24
05:39
WBC 8.1
Hgb 14.1
Hct 39.9
Plt Count 244
PT 12.3
INR 0.87
APTT 25.4
Sodium 133 L
Potassium 3.4 L D
Chloride 93 L
Carbon Dioxide 31 H
BUN 13
Creatinine 0.5 L
Glucose 103 H
Calcium 9.8
Total Bilirubin 0.3
AST 44 H
ALT 34
Alkaline Phosphatase 79
Vital Signs:
Vital Signs
Temp Pulse Resp BP Pulse Ox
99.2 F 76 22 120/72 95
03/17/24 16:47 03/18/24 11:15 03/18/24 11:15 03/18/24 10:17 03/17/24 23:00
Physical Exam
-
General: Well Developed, Well Nourished, No Apparent Distress and Comfortable
HEENT: Normocephalic, Atraumatic, Moist Mucous Membranes, No Ptosis, PERRLA and Nose Appears Normal
Respiratory: Clear to Auscultation and Non Labored Respirations
Cardiac: Regular Rhythm and S1/S2
Breast: Deferred by me
GI: Soft, Nontender, Nondistended and Normal Bowel Sounds
Genito-urinary: No Costovertebral Tender
Musculoskeletal: No Clubbing, No Cyanosis and No Edema
Skin: Warm
Neuro: Awake, Alert, Oriented, AO x 3 and No Motor Deficits
Psych: Calm
--- NOTE | 2024-03-18 11:35 | W.DCSUMMARY ---
Discharge Summary
Discharge Data
Date of Admission: 03/17/24
Date of Discharge: 03/18/24
-
Pending Results: No
Hospital Course
Patient is 73 years old with history of recent stroke 2 weeks ago came to the ER with left-sided
Seen right-sided stroke and CT scan.
Neurology recommending to continue same medical management
Seen by physical therapy recommended rehab but patient wants to go home.
CVA/TIA symptoms
Left-sided weakness
Head CT: No acute intracranial hemorrhage.
Interval development of a small focus of diminished attenuation in the posterior right frontal ornelas radiata measuring 7 mm. Findings consistent with interval small focal white matter infarct. No associated mass effect.
EKG: NORMAL SINUS RHYTHM
VOLTAGE CRITERIA FOR LEFT VENTRICULAR HYPERTROPHY ( R in aVL, Sokolow-Romo, Stephen product )
- Admit to telemetry
- Consult Neurology---> continue current management
- NIH
- Neurochecks
#benign hypertension
- Hold HCTZ Tilman
#hyperlipidemia
- continue atorvastatin
#CVA
previous confirmed with MRI
MRI (03/06/2024): 8 mm acute/subacute nonhemorrhagic left thalamic infarct
There is moderate cortical and cerebellar atrophy with moderate nonspecific white matter changes as described above.
- continue aspirin and clopidogrel
#CKD II
BUN 20, Creat 0.6, GFR >60.0
- monitor BMP
#osteoporosis
- continue alendronate, and arthritis gel out patient
#GERD
#Hx melanoma to RUE s/p MOHS
#vertigo
Code Status: Full Code
DVT Prophylaxis: SCDs
Anticipated Discharge: Today
Discharge Plan
-
Patient Disposition: Home with Home Care
Discharge Diagnosis/Procedures: Acute CVA
Condition: Good
Diet: Low Fat and Low Cholesterol
Activity: No restrictions
Other Services: PT and OT
Referrals:
Scottie Farmer MD [Active] - (May need outpatient Holter monitor)
Ana Grace PA-C [Family Provider] -
Juan Rodriguez MD [Active] -
Prescriptions:
New
clopidogrel 75 mg Tablet
75 mg PO DAILY Qty: 21 0RF
Continued
alendronate [Fosamax] 70 mg Tablet
70 mg PO WE
Arthritis Gel gel
1 applic topical DAILY
therapeutic multivitamin Tablet
1 tab PO DAILY
aspirin 81 mg Tablet,Chewable
81 mg PO DAILY Qty: 30 0RF
diphenhydramine HCl [Benadryl] 25 mg Capsule
50 mg PO HSPRN PRN (Reason: sleep) Qty: 1 0RF
magnesium oxide 500 mg magnesium Tablet
500 mg PO DAILY Qty: 30 0RF
atorvastatin 80 mg tablet
80 mg PO HS
Held
hydrochlorothiazide 25 mg Tablet
25 mg PO DAILY Qty: 30 0RF
Hold Instructions: Resume on 03/21/24. Resume Thursday morning
Discontinued
clopidogrel 75 mg Tablet
75 mg PO DAILY Qty: 17 0RF
Rx Instructions:
Mar 26, 2024 is your last day/dose with Plavix.
Discharge Orders:
Discharge Patient (As Directed); Ordered 03/18/24
Ordered By: Yuly Tan
Discharge Date and Time
Print Language: ROMANIAN
--- NOTE | 2024-03-18 11:37 | CM ---
Cm met with patient. Patient understands that she has been recommended for [facility]> Patient is NOT agreeable with placement. Patient is agreeable to [facility] and she feels like she will go better at home. CM updated at bedside and bedside RN.
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
PLAN: home with [facility]
--- NOTE | 2024-03-18 12:44 | PTCARENOTE ---
Rn Flow [employer]- Patient not given stroke packet at time of dc. Called to patient's who states that they were given stroke packet last admission 2 weeks ago. Encourage patient and to read through this information. During
discharge discussed need to call ambulance with any neurological changes and to come to emergency room as soon as possible.
== END 2024-03-18 12:44 | disposition home health service (06) ==
LOC: ED 21:48
PROVIDERS: Emergency Medicine; Nurse Practitioner Family; ADMITTING PHYSICIAN Internal Medicine; ATTENDING PHYSICIAN General Practice; CONSULT PHYSICIAN Psychiatry & Neurology Clinical Neurophysiology; EMERGENCY PHYSICIAN Emergency Medicine; FAMILY PHYSICIAN Physician Assistant Medical
DX: I63.81 Other cerebral infarction due to occlusion or stenosis of small artery (principal); G81.94 Hemiplegia, unspecified affecting left nondominant side; F17.200 Nicotine dependence, unspecified, uncomplicated; M81.0 Age-related osteoporosis without current pathological fracture; E78.00 Pure hypercholesterolemia, unspecified; I12.9 Hypertensive chronic kidney disease with stage 1 through stage 4 chronic kidney disease, or unspecified chronic kidney disease; M19.90 Unspecified osteoarthritis, unspecified site; K21.9 Gastro-esophageal reflux disease without esophagitis; I51.7 Cardiomegaly; R94.31 Abnormal electrocardiogram [ECG] [EKG]; G31.9 Degenerative disease of nervous system, unspecified; N18.2 Chronic kidney disease, stage 2 (mild); R42 Dizziness and giddiness; R07.9 Chest pain, unspecified; R29.818 Other symptoms and signs involving the nervous system; M62.81 Muscle weakness (generalized); Z96.653 Presence of artificial knee joint, bilateral; Z86.16 Personal history of COVID-19; Z85.820 Personal history of malignant melanoma of skin; Z79.82 Long term (current) use of aspirin; Z79.02 Long term (current) use of antithrombotics/antiplatelets
CPT/HCPCS: 70450; 70496; 70498; 80053; 80061; 81003; 81015; 84484; 85025; 85027; 85610; 85652; 85730; 93005; 99285; G0378; Q9967

== ENCOUNTER 2024-05-13 09:48 | Inpatient (IN) | payer OTHER, SELFPAY ==
[2024-05-13 09:00] VITALS: BMI 22.7
--- NOTE | 2024-05-13 09:25 | HPS.HSE ---
Addendum entered and electronically signed by Scottie Farmer MD 05/13/24 10:58:
Patient seen and examined in collaboration with COMPOSITE LAYUP WORKER; agree with below.
-Patient known to me in the outpatient setting; HYUN arranged today to help determine etiology of recent bilateral CVAs, only a few weeks apart.
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
-Case reviewed with CT Surgery; recommend surgical removal, and likely aortic valve replacement.
-Will cancel ILR implantation.
-Patient will be admitted to the Cardiology service.
-Will start heparin drip; will discontinue Plavix.
-Continue aspirin.
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
-Further recommendations as per CT surgery.
-Plan of care discussed with the patient and family.
Original Note:
Family Physician
-
Family Physician: Ana Grace
Hall Monitor: Dr. Scottie Farmer
Chief Complaint
-
elective HYUN for recent b/l CVA
History of Present Illness
Mrs. Watkins is a 73-year-old female with labile hypertension, hyperlipidemia, former smoking history (15 pack years, quit at age 28), GERD/IBS and recent bilateral CVAs (02/2024 left-sided CVA on MRI, then a few weeks later had a right-sided CVA
confirmed on head CT), who presents for elective HYUN as recommended by Dr. Farmer at outpatient office visit 05/11/24. HYUN was performed today by Dr. 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 She
will be admitted and CT surgery will be consulted for surgery next week. This plan was discussed with the patient and her by Dr. Farmer, and are in agreement. Currently she denies any symptoms.
Medical History
Past Medical History
Past Medical History: Reports Other (as above)
Past Surgical History: Reports Orthopedic (right TKA)
Social History
Tobacco: Former Smoker (quit age 28, 15 pack years)
Alcohol: None
Personal:
Living: With Family
Family History
Family History: Not pertinent
Allergies / Home Medications
Allergies reflects when Allergies were last updated in [employer].
Home Medications with original date entered in [employer]
Allergy/Medication List:
ACEI - cough
pollen - runny nose/sneezing
fluticasone propionate - abdominal pain
salmeterol xinafoate - abdominal pain
Review of Systems
-
History Source: Patient
A 12 point ROS was completed and negative except as noted: Yes
Physical Exam
Physical Exam
General: Well Developed, Well Nourished and No Apparent Distress
HEENT: NormoCephalic, Anicteric and Moist mucous membranes
Respiratory: Clear and Non Labored Respirations
Cardiac: S1/S2 and Regular Rhythm
Breast: Deferred by me
GI: Soft, Non Tender, Non Distended and Normal Bowel Sounds
Rectal: Deferred by Provider
Genito-urinary: Deferred by me
Musculoskeletal: No Cyanosis and No Edema
Skin: Warm and Dry
Neuro: AO x 3
Hematologic/Lymphatic: No Lymphadenopathy
Psych: Calm
Laboratory Results
-
labs ordered
Data Reviewed
-
Lab Data: Labs Reviewed by me
Old Records: Reviewed
Impression/Plan
-
IMPRESSION/PLAN:
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
- CT surgery consulted, plan for surgery next week.
- continue ASA, holding Plavix and Losartan.
- IV Heparin drip.
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
- HYUN as above.
- has been on ASA and Plavix since CVA, hold Plavix now.
- continue Lipitor LDL 69 03/2024.
HTN - stable on Losartan.
- holding prior to CT surgery.
- monitor.
HLD - stable on Lipitor, continue.
[2024-05-13 09:57] VITALS: BP 155/141
[2024-05-13 10:00] VITALS: BMI 22.6
[2024-05-13] MEDS: LOW STRENGTH ASPIRIN 81 MG PO (10:16)
[2024-05-13 10:33] LABS: % Basophils 0.3 % (0-2); % Eosinophils 2.3 % (0-6); % Immature Granulocytes 0.5 % (0-0.5); % Lymphocytes 20.6 % (20.5-51.1); % Monocytes 7.9 % (1.7-9.3); % Neutrophils 68.4 % (42.2-75.2); Absolute Eosinophils 0.2 10^3/uL (0-0.7); Absolute Immature Granulocytes 0.1 10^3/uL (0-0.05); Absolute Lymphocytes 2.1 10^3/uL (1.2-3.4); Absolute Monocytes 0.8 10^3/uL (0.1-0.6); Hematocrit 39.2 % (37.0-47.0); Hemoglobin 13.1 g/dL (12.0-16.0); Mean Corp Hgb Conc. 33.4 g/dL (33.0-37.0); Mean Corpuscular Hgb 31.5 pg (27.0-31.0); Mean Corpuscular Volume 94.2 fL (81.0-99.0); Mean Platelet Volume 9.7 fL (7.4-10.4); Nucleated Red Blood Cells % 0 %; Platelet Count 251 10^3/uL (130-400); Red Blood Cell Count 4.16 10^6/uL (4.20-5.40); Red Cell Dist. Width 13.2 % (11.5-14.5); White Blood Cell Count 10.2 10^3/uL (4.8-10.8)
[2024-05-13 10:40] LABS: Blood Urea Nitrogen 15 mg/dl (7-17); Calcium 9.9 mg/dl (8.4-10.2); Carbon Dioxide 29 mmol/L (22-30); Chloride 102 mmol/L (98-107); Estimated Creatinine Clearance 64 ml/min; Glucose 101 mg/dl (70-99); Potassium 4.7 mmol/L (3.5-5.1); Sodium 138 mmol/L (135-145); eGFR > 60.00
[2024-05-13] MEDS: HEPARIN 25000 UNITS/250 ML IV (11:42)
[2024-05-13 12:18] VITALS: BP 148/79
[2024-05-13 12:19] VITALS: BP 148/79
--- NOTE | 2024-05-13 12:22 | W.PN.UPDATE ---
Update Note
Progress Note Update
Called by Dr. Farmer to review HYUN at bedside during procedure. Agreed, there is likely a fibroelastoma attached to her aortic valve which could be the source of her embolic strokes x 2. SONAM was clear. No history of afib. She needs indication for
aortic valve intervention in the form of a resection, possible aortic valve repair, possible aortic valve replacement. Plan is to keep her in house, on hep gtt, and to washout plavix. She will need management of her SONAM at time of surgery given the
strokes. Obtain CTA of the chest. Will meet with her today to discuss intervention.
--- NOTE | 2024-05-13 14:22 | CONSULT.CT ---
Consultation
-
Date/Time Consultation Requested: 05/13/24
Date/Time Consultation Performed: 05/13/24
Requesting Provider: Scottie Farmer MD
Performing Provider: Maida MUNOZ for J Carlos Zavala MD
Reason for Consultation: fibroelastoma
Patient History
Physicians
Family Physician: Ana Grace
Outpatient Manufacturing Electrician: Scottie Farmer MD
Inpatient Manufacturing Electrician: Scottie Farmer MD
History of Present Illness
73-year-old female with labile hypertension, hyperlipidemia, GERD/IBS and recent bilateral embolic CVAs (02/2024 left-sided CVA on MRI, then a few weeks later had a right-sided CVA confirmed on head CT), who presented 05/13/24 for elective
HYUN as recommended by Dr. Farmer at outpatient office visit 05/11/24. 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 Patient reports continued numbness in extremities and no decrease in strength.
She was undergoing outpatient physical therapy and is walking without assistive devices. She denies chest pain or shortness of breath. Patient on ASA, statin and Plavix. Last dose of Plavix was 05/13/24 and patient is transitioned to IV Heparin.
Past Medical History
Past Medical History: CVA/TIA (left sided 02/2024; right sided 03/2024 (both embolic)), GERD (irritable bowel), HTN, Hypercholesterolemia and Other (Osteoporosis)
Past Surgical History
Past Surgical History: Other (B/L cataract extraction; spinal fusion)
Dental History
last dental exam 6 months ago
Social History
Alcohol: Occasional
Drug: None
Tobacco: Former Smoker (quit age 28)
Personal:
Living: With Spouse
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
Allergies
Allergy/AdvReac Type Severity Reaction Status Date / Time
pollen extracts Allergy Nasal Verified 03/17/24 15:13
Congestion
Home Medications
�Medication �Instructions �Recorded �Confirmed �Type
therapeutic multivitamin 1 tab PO DAILY Supplement 03/06/24 05/13/24 History
aspirin 81 mg chewable tablet 81 mg PO DAILY #30 tabs 03/09/24 05/13/24 Rx
magnesium oxide 500 mg PO DAILY #30 tabs 03/09/24 05/13/24 Rx
atorvastatin 80 mg tablet 80 mg PO HS High Cholesterol 03/17/24 05/13/24 History
clopidogrel 75 mg tablet 75 mg PO DAILY #21 tabs 03/18/24 05/13/24 Rx
losartan 25 mg tablet 25 mg PO DAILY 05/13/24 05/13/24 History
Review of Systems
-
History Source: Patient
General: Reports No Symptoms
HEENT: Reports No Symptoms
Respiratory: Reports No Symptoms
Cardiac: Reports No Symptoms
Abdomen/GI: Reports No Symptoms
: Reports No Symptoms
Musculoskeletal: Reports Myalgias and Arthralgias
Neurological: Reports Numbness (B/L lower extremity neuropathy)
Vascular: Reports No Symptoms
Physical Exam
Vital Signs
Temp 97.6 F 05/13/24 12:18
Temp route: Oral 05/13/24 12:18
Pulse 70 05/13/24 12:18
Rhythm: Normal sinus rhythm 05/13/24 10:08
Resp Rate 16 05/13/24 12:18
Blood pressure 148/79 05/13/24 12:18
Blood pressure extremity used: Right upper arm 05/13/24 12:18
Position: Lying 05/13/24 12:18
MAP (cuff-Donald Monitor) 148 05/13/24 09:57
SaO2 97 05/13/24 12:18
Oxygen Mode of Delivery Room air 05/13/24 12:18
Can the patient verbally communicate their pain? Yes 05/13/24 10:08
Actual Weight 56 kg 05/13/24 10:00
Body Mass Index (BMI) 22.6 05/13/24 10:00
Labs
05/13/24 10:11
05/13/24 10:11
APTT 25.0 Sec (23.4-35.0) 05/13/24 11:00
Exam
General: Well Developed and Well Nourished
HEENT: Normocephalic
Neck: Trachea Midline
Respiratory: Clear
Cardiac: S1/S2 and Regular Rhythm
GI: Soft, Non Tender, Non Distended and Normal Bowel Sounds
Rectal: Deferred by Provider
Skin: Warm and Dry
Neuro: AO x 3 and Nonfocal/Grossly Intact
Extremities: Pulses (+2/4 DP pulses B/L)
Lymph: No Lymphadenopathy
Psych: Calm
Assessment / Plan
-
73-year-old female with recent by hemispherical embolic CVAs with fibroelastoma on the noncoronary cusp of the aortic valve diagnosed by HYUN
- Last dose Plavix 05/13/2024, need 5 day wash-out period
- pre-op diagnostics ordered
- case discussed with surgeon
- CTA chest in lieu of cardiac cath
- hold losartan 48 hours prior to surgery to reduce potential for isabella-op vasoplegia
Data Reviewed
-
EKG: Report Reviewed by me and Discussed with Physician
Echo: Report Reviewed by me and Discussed with Physician
Radiology: Report Reviewed by me and Discussed with Physician
CT Scan: Report Reviewed by me and Discussed with Physician
Labs: Labs Reviewed by me and Discussed with Physician
[2024-05-13 15:52] VITALS: BP 119/79
--- NOTE | 2024-05-13 16:07 | CM ---
CM following for DC planning needs.
Met w/ patient at bedside to complete initial assessment.
Pt. reports that she resides w/ spouse and 2 teenage grandchildren in a private, 2 story home, 2 [address]. Functionally, patient is indep. w/ ADLs, mobility. 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
Pt. has a RW in the home from past strokes but does not currently use.
She has history of [facility] but they had recently discontinued their services.
Pt. anticipates CT Surgery next week.
Will plan to meet w/ patient prior to her surgery to complete pre-op teaching.
Anticipate DC to home once stable w/ CT Transitional Care RN.
Will follow.
[2024-05-13 18:09] LABS: APTT 39.2 Sec (23.4-35.0)
--- NOTE | 2024-05-13 18:37 | PTCARENOTE ---
Pt admitted post HYUN, awake alert and oriented. Pt had CT scan chest and a panelipse. Heparin infusion started. Pt up independently in the room with a steady gait. Telemetry shows sinus rhythm. Plan for plavix washout and CT surgery next week.
[2024-05-13 19:00] VITALS: BP 131/83
--- NOTE | 2024-05-13 21:18 | PTCARENOTE ---
Pt rec'd at change of shift awake,alert no complaints. sinus on telemetry. Heparin gtt infusing at 900 units hr, site patent.
[2024-05-13 22:21] VITALS: BP 140/69
[2024-05-13] MEDS: LIPITOR 80 MG PO (22:21)
[2024-05-14] VITALS (7 sets, daily range): BP systolic 115–138; BP diastolic 63–79; BMI 22.1
[2024-05-14 00:41] LABS: APTT 73.1 Sec (23.4-35.0)
[2024-05-14 06:34] LABS: Hematocrit 35.8 % (37.0-47.0); Hemoglobin 11.9 g/dL (12.0-16.0); Mean Corp Hgb Conc. 33.2 g/dL (33.0-37.0); Mean Corpuscular Hgb 30.7 pg (27.0-31.0); Mean Corpuscular Volume 92.3 fL (81.0-99.0); Mean Platelet Volume 9.8 fL (7.4-10.4); Platelet Count 230 10^3/uL (130-400); Red Blood Cell Count 3.88 10^6/uL (4.20-5.40); Red Cell Dist. Width 13.3 % (11.5-14.5); White Blood Cell Count 6.6 10^3/uL (4.8-10.8)
[2024-05-14] MEDS: TYLENOL 650 MG PO ×2 (06:41→19:50)
[2024-05-14 06:43] LABS: INR 0.93; PT 12.8 Sec (11.4-14.6)
[2024-05-14 06:44] LABS: APTT 79.8 Sec (23.4-35.0)
--- NOTE | 2024-05-14 06:48 | PTCARENOTE ---
Pt with c/o pain right shoulder states it was from her fall at home. No visible bruise noted-medicated with Tylenol for c/o 3 out of 10.
[2024-05-14 07:04] LABS: ALT (SGPT) 37 U/L (0-35); AST (SGOT) 41 U/L (14-36); Albumin 3.8 g/dl (3.5-5.0); Alkaline Phosphatase 95 U/L (38-126); Blood Urea Nitrogen 15 mg/dl (7-17); Calcium 9.7 mg/dl (8.4-10.2); Carbon Dioxide 27 mmol/L (22-30); Chloride 103 mmol/L (98-107); Direct Bilirubin 0.1 mg/dl (0.0-0.4); Estimated Creatinine Clearance 64 ml/min; Glucose 105 mg/dl (70-99); Potassium 4.2 mmol/L (3.5-5.1); Sodium 136 mmol/L (135-145); Total Bilirubin 0.6 mg/dl (0.2-1.3); Total Protein 6.4 g/dl (6.3-8.2); eGFR > 60.00
[2024-05-14] MEDS: LOW STRENGTH ASPIRIN 81 MG PO (10:18)
[2024-05-14] MEDS: LIDOCAINE 4% PATCH 1 PATCH TOPICAL (10:18)
--- NOTE | 2024-05-14 11:29 | W.PN.CD ---
Addendum entered and electronically signed by Sharan Ko MD 05/14/24 13:15:
I saw and examined the patient.
The SECURITY FLEX UTILITY OFFICER's note was reviewed and I agree with the note.
Comment:
73-year-old female with labile hypertension, hyperlipidemia, former smoking history (15 pack years, quit at age 28), GERD/IBS and recent bilateral CVAs who presented for elective HYUN found to have a papillary fibroblastoma on her aortic valve. She
saw Dr. Zavala today from cardiovascular surgery. Plan is for tentative surgery on Thursday. She has no cardiovascular complaints today. Physical exam with RRR, no murmurs, clear lungs, and no edema. For her papillary fibroelastoma, as above plan
is for surgery on Thursday. Continue aspirin and heparin drip. Ongoing Plavix washout. Hold losartan in preparation for surgery. She has right shoulder pain following a fall with normal x-ray. Tylenol and lidocaine patch. Try to avoid NSAIDs
giving upcoming surgery and heparin drip.
Original Note:
Today's Communication / Plan
-
continue medical therapy, IV Heparin.
check right shoulder x-ray today.
Impression / Plan
-
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
- CT surgery consulted, plan for surgery next week.
- continue ASA, holding Plavix and Losartan.
- continue IV Heparin drip.
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
- HYUN as above.
- has been on ASA and Plavix since CVA, hold Plavix now prior to surgery.
- continue Lipitor LDL 69 03/2024.
HTN - stable on Losartan.
- holding prior to CT surgery.
- monitor.
HLD - stable on Lipitor, continue.
Right shoulder pain - acute.
- she states cleaning at home 05/12/24 and fell backwards landing on her right shoulder, now c/o pain.
- will check right shoulder x-ray.
- given Tylenol this am w/o improvement.
- ordered Lidocaine patch for right shoulder pain.
- continue to monitor.
Physical Exam
Vital Signs/Labs
Vital Signs
Temp Pulse Resp BP Pulse Ox
98.1 F 65 20 122/69 98
05/14/24 06:45 05/14/24 08:00 05/14/24 06:45 05/14/24 06:15 05/13/24 22:20
05/13/24 05/14/24 05/15/24
06:59 06:59 06:59
Actual Weight 120 lb 13.013 oz
05/14/24 06:24
05/14/24 06:24
PT 12.8 Sec (11.4-14.6) 05/14/24 06:24
INR 0.93 05/14/24 06:24
APTT 79.8 Sec (23.4-35.0) H 05/14/24 06:24
Physical Exam
Constitutional: No acute distress
EENT: Anicteric and Moist mucous membranes
Cardiovascular: Rhythm & rate is regular
Respiratory: Respiratory effort normal and Lungs clear to auscul.
GI: Soft, Non tender and Normal bowel sounds
Neuro/Psych: AO x 3
Other: Skin (warm, dry)
Data Reviewed
-
Date of Service: May 14, 2024
Medical Decision Making: Reviewed Test Results
EKG: Tracing Personally Visualized and interpreted
Echo: Report Reviewed by me
Labs: Labs Reviewed by me
[2024-05-14] MEDS: HEPARIN 25000 UNITS/250 ML IV (14:23)
[2024-05-14] MEDS: LIPITOR 80 MG PO (21:59)
--- NOTE | 2024-05-14 23:27 | PTCARENOTE ---
Pt rec'd in bed c/o neck and right shoulder pain medicated with Tylenol with some relief. Sinus on telemetry. Heparin drip at 900 units /hr. Pt aware of need for UA C&S in am.
[2024-05-15] VITALS (8 sets, daily range): BP systolic 81–125; BP diastolic 57–74; BMI 22.3
[2024-05-15] MEDS: TYLENOL 650 MG PO (02:16)
[2024-05-15 02:29] LABS: Hematocrit 34.3 % (37.0-47.0); Hemoglobin 11.8 g/dL (12.0-16.0); Mean Corp Hgb Conc. 34.4 g/dL (33.0-37.0); Mean Corpuscular Hgb 31.1 pg (27.0-31.0); Mean Corpuscular Volume 90.5 fL (81.0-99.0); Mean Platelet Volume 9.7 fL (7.4-10.4); Platelet Count 231 10^3/uL (130-400); Red Blood Cell Count 3.79 10^6/uL (4.20-5.40); Red Cell Dist. Width 13.2 % (11.5-14.5); White Blood Cell Count 6.7 10^3/uL (4.8-10.8)
[2024-05-15 02:40] LABS: APTT 72.1 Sec (23.4-35.0)
[2024-05-15] MEDS: LIDOCAINE 4% PATCH 1 PATCH TOPICAL (08:04)
[2024-05-15] MEDS: LOW STRENGTH ASPIRIN 81 MG PO (08:04)
[2024-05-15 08:44] LABS: Urine Albumin Negative (Neg - Trace); Urine Bilirubin Negative (Negative); Urine Character Clear (Clear); Urine Color Straw; Urine Glucose Negative (Negative); Urine Ketone Negative (Negative); Urine Leukocyte 1+ (Negative); Urine Nitrite Negative (Negative); Urine Occult Blood Negative (Negative); Urine Urobilinogen Negative (Neg - 1+)
[2024-05-15 09:13] LABS: Urine Bacteria Few (Negative); Urine Red Blood Cell 0-2 /HPF (0-2); Urine White Cell 0-2 /HPF (0-5)
[2024-05-15 09:36] LABS: APTT 92.1 Sec (23.4-35.0)
--- NOTE | 2024-05-15 14:55 | W.PN.CD ---
Today's Communication / Plan
-
Continue heparin drip
CT surgery Thursday
Impression / Plan
-
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
- CT surgery consulted, plan for surgery Thursday
- continue ASA, holding Plavix and Losartan.
- continue IV Heparin drip.
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
- HYUN as above.
- has been on ASA and Plavix since CVA, hold Plavix now prior to surgery.
- continue Lipitor LDL 69 03/2024.
HTN - stable on Losartan.
- holding prior to CT surgery.
- monitor.
HLD - stable on Lipitor, continue.
Right shoulder pain - acute.
- Shoulder x-ray with no acute bone abnormality
- Continue Tylenol and lidocaine patch. Avoid NSAIDs with upcoming surgery and heparin drip.
Subjective: Feels well today. No cardiovascular complaints. Telemetry unremarkable.
Physical Exam
Vital Signs/Labs
Vital Signs
Temp Pulse Resp BP Pulse Ox
97.7 F 69 20 125/74 97
05/15/24 11:45 05/15/24 10:15 05/15/24 11:45 05/15/24 07:21 05/15/24 11:45
05/14/24 05/15/24 05/16/24
06:59 06:59 06:59
Actual Weight 54.8 kg 55.2 kg
05/15/24 02:23
05/14/24 06:24
PT 12.8 Sec (11.4-14.6) 05/14/24 06:24
INR 0.93 05/14/24 06:24
APTT 92.1 Sec (23.4-35.0) H 05/15/24 09:16
Physical Exam
Constitutional: No acute distress and Comfortable
EENT: Anicteric
Cardiovascular: Rhythm & rate is regular, Pedal edema is absent, S1S2 is normal and Murmur/rub/gallop absent
Respiratory: Respiratory effort normal and Lungs clear to auscul.
Neuro/Psych: AO x 3
Data Reviewed
-
Date of Service: May 15, 2024
Medical Decision Making: Reviewed Test Results, Independent Historian Assessment, Test Interpretation and Review of Case with other Provider
EKG: Tracing Personally Visualized and interpreted
Echo: Report Reviewed by me
Labs: Labs Reviewed by me
[2024-05-15] MEDS: HEPARIN 25000 UNITS/250 ML IV (16:10)
[2024-05-15 17:23] LABS: APTT 91.4 Sec (23.4-35.0)
[2024-05-15] MEDS: LIPITOR 80 MG PO (20:54)
[2024-05-16] VITALS (8 sets, daily range): BP systolic 89–125; BP diastolic 57–89; BMI 22.2; BMI 22.1
--- NOTE | 2024-05-16 00:10 | W.PN.CT ---
Addendum entered and electronically signed by Ousmane Manedl MD 05/16/24 13:05:
CARDIAC SURGERY ATTENDING:
It was my pleasure to once again meet with Mrs. Shannan Watkins. She is a very pleasant 73-year-old woman with a likely papillary fibroelastoma on the noncoronary cusp of her aortic valve that is thought to be the source behind her recent CVAs. In
planning for her operative intervention/resection of this papillary fibroelastoma, the patient underwent a CT chest. This demonstrated a moderate, somewhat long segment plaque of her LAD. I believe she will benefit from surgical resection of her
papillary fibroelastoma with concurrent GREY to LAD bypass and exclusion of her left atrial appendage. I had a long conversation with Mrs. Watkins. We reviewed her pathology, discussed the proposed operative interventions, reviewed the
periprocedural risks (including, but not limited to, , stroke, AR, arrhythmia, PPM requirement, potential for valve replacement surgery (biologic AVR), PNA, DIEUDONNE/F, bleeding, and infection), discussed expected in-hospital postprocedural course,
and reviewed the expected outpatient recovery. All questions were answered to the best of my abilities. The patient is agreeable to proceed. She is tentatively been scheduled for her procedure this coming 05/18/2024.
Thank you for the opportunity to participate in the care of this kind patient.
Please call with any questions or concerns.
Ousmane Mandel MD
[phone]
Original Note:
Today's Communication / Plan
-
Plan:
-Cont. current medical management per primary team
-Cont. current meds (ASA, heparin, Lipitor)
-Avoid JOSE ROBERTO-I/ARBs in preparation for OR (Losartan currently on hold)
-Plavix washout, last dose 05/13/24
-For resection of PFE +/- AVR +/- SONAM clip +/- CABG to LAD by Dr. Mandel possibly Thursday 05/18
-Will cont. to closely monitor
Assessment / Plan
-
Assessment:
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
-LVEF 55-60%
-Moderate LAD calcific plaque seen on CTA
-Mild TR
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
-Plavix washout, last dose 05/13/24
-HTN
-HLD
-Prediabetes (hgb A1C 6.0)
-GERD
-IBS
-Osteoporosis
-Incidental finding of multiple pulmonary nodules @ RUE (7.8 mm)
-S/P spinal fusion
-S/P bilateral cataract extractions
Discussed patient care with: Cardiology, Nursing and Care Team
Subjective
-
Date of Service: May 16, 2024
No issues overnight. Denies CP/SOB, right shoulder pain has improved
Objective Data
-
Lab Results
05/15/24 02:23
05/14/24 06:24
PT 12.8 Sec (11.4-14.6) 05/14/24 06:24
INR 0.93 05/14/24 06:24
APTT 91.4 Sec (23.4-35.0) H 05/15/24 17:01
Vital Signs
Vital Signs
Temp Pulse Resp BP Pulse Ox
97.9 F 83 16 108/57 97
05/15/24 22:27 05/15/24 22:27 05/15/24 22:27 05/15/24 22:27 05/15/24 22:27
CT Intake/Output/Weight
05/15/24 05/15/24 05/16/24
06:59 18:59 06:59
Intake Total 100 / 1060
Output Total 300 / 300 300 / 900 600 / 900
Balance -200 / 760 -300 / -900 -600 / -900
SaO2: 97 (RA)
Physical Exam
-
General: Awake, Oriented and AOx3
Cardiovascular: Regular rate & rhythm and No Murmurs
Respiratory: Clear
Extremities: No Edema
Data Reviewed
-
Lab Results: Results Reviewed
Medications: Active Meds Reviewed
CT Scan: Report Reviewed and Image Reviewed
ECG: Report Reviewed and Image Reviewed
[2024-05-16 05:41] LABS: APTT 87.2 Sec (23.4-35.0)
--- NOTE | 2024-05-16 05:42 | PTCARENOTE ---
NSR on monitor, VSS. Denies pain or discomfort. Independent in the room.
--- NOTE | 2024-05-16 07:55 | PTCARENOTE ---
Assumed care of pt from prev nsg shift; Pt AAOx3 w/no c/o CP or SOB. Pt reports R shoulder 'much improved'. Pt w/VSS stable w/HR in the 60's & BP 121/89 this AM. Pt's is SR on telemetry monitoring. Pt has Heparin IV drip infusing through patent IV
line as ordered. Pt w/callbell within reach & plan of care ongoing.
[2024-05-16] MEDS: LIDOCAINE 4% PATCH TOPICAL (09:24)
--- NOTE | 2024-05-16 10:23 | W.PN.CD ---
Today's Communication / Plan
-
Heparin drip
CT surgery Thursday
Impression / Plan
-
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
- CT surgery consulted, plan for surgery Thursday
- continue ASA, holding Plavix and Losartan.
- continue IV Heparin drip.
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
- HYUN as above.
- has been on ASA and Plavix since CVA, hold Plavix now prior to surgery.
- continue Lipitor LDL 69 03/2024.
HTN - stable on Losartan.
- holding prior to CT surgery.
- monitor.
HLD - stable on Lipitor, continue.
Right shoulder pain - acute.
- Shoulder x-ray with no acute bone abnormality
- Continue Tylenol and lidocaine patch. Avoid NSAIDs with upcoming surgery and heparin drip.
Subjective: Feels well today. No cardiovascular complaints. Had carotid ultrasounds done this morning.
Physical Exam
Vital Signs/Labs
Vital Signs
Temp Pulse Resp BP Pulse Ox
97.8 F 68 16 121/89 98
05/16/24 07:56 05/16/24 07:53 05/16/24 07:56 05/16/24 07:53 05/16/24 07:56
05/15/24 05/16/24 05/17/24
06:59 06:59 06:59
Actual Weight 55.2 kg 54.7 kg
05/15/24 02:23
05/14/24 06:24
PT 12.8 Sec (11.4-14.6) 05/14/24 06:24
INR 0.93 05/14/24 06:24
APTT 87.2 Sec (23.4-35.0) H 05/16/24 04:46
Physical Exam
Constitutional: No acute distress and Comfortable
EENT: Anicteric and Moist mucous membranes
Cardiovascular: Rhythm & rate is regular, Pedal edema is absent, S1S2 is normal and Murmur/rub/gallop absent
Respiratory: Respiratory effort normal and Lungs clear to auscul.
Neuro/Psych: AO x 3
Data Reviewed
-
Date of Service: May 16, 2024
Medical Decision Making: Reviewed Test Results, Independent Historian Assessment, Test Interpretation and Review of Case with other Provider
EKG: Tracing Personally Visualized and interpreted
Echo: Report Reviewed by me
Labs: Labs Reviewed by me
[2024-05-16] MEDS: LOW STRENGTH ASPIRIN 81 MG PO (10:39)
--- NOTE | 2024-05-16 12:10 | CM ---
Reviewed chart. Met with Mrs. Watkins to review discharge plans. She states she is feeling well and waiting for her heart surgery on Thursday. She states prior to admission she resides with her spouse and two 15 and 17 year old grandchildren in
a two story home with two steps to enter. Her daughter and son-in-law reside in the apartment on the property. She states prior to admission she was independent with ambulation and adls. She states she has a raised toilet seat and shower chair at
home. She states she has a prescription plan and uses [facility]. She states her spouse will be home and the other family members will be around to assist in her care if needed. Medical work-up in progress. The discharge plan is to return
home with her spouse and family with a home visit by the Transitional Care Nurse when medically stable.
[2024-05-16] MEDS: HEPARIN 25000 UNITS/250 ML IV (16:02)
[2024-05-16] MEDS: LIPITOR 80 MG PO (20:23)
[2024-05-17 04:05] VITALS: BP 137/68
[2024-05-17 04:29] LABS: Hematocrit 37.6 % (37.0-47.0); Hemoglobin 12.4 g/dL (12.0-16.0); Mean Corpuscular Hgb 30.8 pg (27.0-31.0); Mean Corpuscular Volume 93.5 fL (81.0-99.0); Mean Platelet Volume 9.9 fL (7.4-10.4); Platelet Count 227 10^3/uL (130-400); Red Blood Cell Count 4.02 10^6/uL (4.20-5.40); Red Cell Dist. Width 13.2 % (11.5-14.5); White Blood Cell Count 6.8 10^3/uL (4.8-10.8)
[2024-05-17 04:38] LABS: APTT 69.5 Sec (23.4-35.0)
--- NOTE | 2024-05-17 04:38 | PTCARENOTE ---
Heparin gtt running as documented. Ambulating the room as a self. no complaints.
--- NOTE | 2024-05-17 04:43 | W.PN.CT ---
Today's Communication / Plan
-
Plan:
-Cont. current medical management per primary team
-Cont. current meds (ASA, heparin, Lipitor)
-Avoid JOSE ROBERTO-I/ARBs in preparation for OR (Losartan currently on hold)
-Plavix washout, last dose 05/13/24
-For resection of PFE +/- AVR +/- SONAM clip +/- CABG to LAD by Dr. Mandel likely tomorrow 05/18
-Will cont. to closely monitor
Assessment / Plan
-
Assessment:
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
-LVEF 55-60%
-Moderate LAD calcific plaque seen on CTA
-Mild TR
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
-Plavix washout, last dose 05/13/24
-HTN
-HLD
-Prediabetes (hgb A1C 6.0)
-GERD
-IBS
-Osteoporosis
-Incidental finding of multiple pulmonary nodules @ RUL (7.8 mm)
-S/P spinal fusion
-S/P bilateral cataract extractions
Discussed patient care with: Cardiology, Nursing and Care Team
Subjective
-
Date of Service: May 17, 2024
No issues overnight. Denies CP/SOB
Objective Data
-
Lab Results
05/17/24 04:13
05/14/24 06:24
PT 12.8 Sec (11.4-14.6) 05/14/24 06:24
INR 0.93 05/14/24 06:24
APTT 87.2 Sec (23.4-35.0) H 05/16/24 04:46
Vital Signs
Vital Signs
Temp Pulse Resp BP Pulse Ox
98.2 F 66 18 137/68 98
05/17/24 04:20 05/17/24 04:05 05/17/24 04:20 05/17/24 04:05 05/17/24 04:20
CT Intake/Output/Weight
05/16/24 05/16/24 05/17/24
06:59 18:59 06:59
Intake Total 960 / 960
Output Total 600 / 900
Balance -600 / -900 960 / 960
SaO2: 98 (RA)
Physical Exam
-
General: Awake, Oriented and AOx3
Cardiovascular: Regular rate & rhythm and No Murmurs
Respiratory: Clear
Extremities: No Edema
Data Reviewed
-
Lab Results: Results Reviewed
Medications: Active Meds Reviewed
Chest X-Ray: Report Reviewed and Image Reviewed
ECG: Report Reviewed and Image Reviewed
--- NOTE | 2024-05-17 07:55 | PTCARENOTE ---
Assumed care of pt from prev nsg shift; Pt AAOx3 w/no c/o CP or SOB. Pt reports R shoulder 'discomfort', rates as a 2/10. PRN Tylenol administered as ordered. Pt w/VSS stable w/HR in the 70's & BP 121/75 this AM. Pt's is SR on telemetry monitoring.
Pt has Heparin IV drip infusing through patent IV line as ordered. Pt sent for CXR as ordered. Plan of care ongoing.
[2024-05-17 07:58] VITALS: BP 121/75
[2024-05-17] MEDS: LIDOCAINE 4% PATCH TOPICAL (09:05)
--- NOTE | 2024-05-17 09:07 | CM ---
Addendum entered by Liberty Rivera 05/17/24 09:18:
Gave her the Cardiothoracic Surgery Educational Booklet.
Original Note:
Reviewed chart. Met with Mrs. Watkins to review discharge plans. She states she is scheduled for heart surgery for tomorrow. Prior to admission she resides with her spouse and two grandchildren in a two story home with two steps to enter. Her
daughter and son-in-law reside in the apartment in the apartment on the property. Prior to admission she was independent with ambulation and adls. She has a raised toilet seat and shower chair at home. She has a prescription plan and uses [facility]. Her spouse will be home to assist in her care if needed when she goes home. Her other family members will be around to assist in her care if needed. Medical work-up in progress. The discharge plan is to return home with her spouse and a
e visit by the Transitional Care Nurse when medically stable.
We reviewed pre-op and post-op routines. We briefly reviewed the shower instructions. We reviewed restrictions including sternal precautions and driving restrictions. We reviewed a home visit by the Transitional Care Nurse. She is agreeable to a
home visit. The plan is for AVR/CABG on 05/17/24.
[2024-05-17] MEDS: LOW STRENGTH ASPIRIN 81 MG PO (09:46)
[2024-05-17] MEDS: LIDOCAINE 4% PATCH 1 PATCH TOPICAL (09:50)
[2024-05-17] MEDS: TYLENOL 650 MG PO (09:51)
--- NOTE | 2024-05-17 11:03 | W.PN.CD ---
Today's Communication / Plan
-
- CT surgery planned for tomorrow.
- Continue IV Heparin drip.
Impression / Plan
-
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
- CT surgery planned for tomorrow.
- continue ASA; holding Plavix and Losartan.
- Continue IV Heparin drip.
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
- Most likely secondary to papillary fibroelastoma on the aortic valve as above.
- HYUN as above.
- has been on ASA and Plavix since CVA, hold Plavix now prior to surgery.
- continue Lipitor LDL 69 03/2024.
HTN -controlled.
-Losartan being held.
-Continue to monitor.
HLD - stable on Lipitor, continue.
Right shoulder pain - acute.
- Shoulder x-ray with no acute bone abnormality
- Continue Tylenol and lidocaine patch. Avoid NSAIDs with upcoming surgery and heparin drip.
Subjective: No major events overnight. No cardiac complaints this a.m.
Physical Exam
Vital Signs/Labs
Vital Signs
Temp Pulse Resp BP Pulse Ox
98.2 F 66 20 121/75 98
05/17/24 07:58 05/17/24 08:00 05/17/24 07:58 05/17/24 07:58 05/17/24 07:58
05/16/24 05/17/24 05/18/24
06:59 06:59 06:59
Actual Weight 54.7 kg
05/17/24 04:13
05/14/24 06:24
PT 12.8 Sec (11.4-14.6) 05/14/24 06:24
INR 0.93 05/14/24 06:24
APTT 69.5 Sec (23.4-35.0) H 05/17/24 04:13
Physical Exam
Constitutional: No acute distress and Comfortable
EENT: Anicteric
Cardiovascular: Rhythm & rate is regular, Pedal edema is absent, Systolic murmur absent and S1S2 is normal
Respiratory: Respiratory effort normal and Lungs clear to auscul.
GI: Soft
Neuro/Psych: AO x 3
Other: Skin (Warm, dry, intact)
Data Reviewed
-
Date of Service: May 17, 2024
EKG: Tracing Personally Visualized and interpreted (Telemetry: Sinus rhythm)
Echo: Tracing Personally Visualized and interpreted (Normal EF)
Medical Tests (PFT, Pathology etc): Discussed with Nurse
Labs: Labs Reviewed by me
[2024-05-17 11:21] VITALS: BP 122/63
[2024-05-17 12:05] LABS: APTT 92.5 Sec (23.4-35.0)
[2024-05-17] MEDS: HEPARIN 25000 UNITS/250 ML IV (15:05)
[2024-05-17 15:44] VITALS: BP 124/60
[2024-05-17 18:19] VITALS: BP 124/74
[2024-05-17 18:20] LABS: APTT 88.7 Sec (23.4-35.0)
--- NOTE | 2024-05-17 20:26 | PTCARENOTE ---
Received patient at change of shift. A&Ox3-- eating dinner. Vitals stable. Heparin gtt running @ 1100 units/hr through right hand. Discussed OR prep for evening and tomorrow morning. Discussed NPO @ midnight. Patient verbalized understanding. Call
dejesus within reach.
[2024-05-17] MEDS: LIPITOR 80 MG PO (21:32)
[2024-05-17 22:24] VITALS: BP 124/73
--- NOTE | 2024-05-17 23:39 | PTCARENOTE ---
Patient clipped, showered, changed for OR in AM. Discussed plan for morning. NPO @ midnight. Patient verbalized understanding.
[2024-05-18] VITALS (20 sets, daily range): BP systolic 78–135; BP diastolic 58–100
[2024-05-18 05:36] LABS: APTT 111.6 Sec (23.4-35.0)
[2024-05-18] MEDS: LOPRESSOR 25 MG PO (06:50)
[2024-05-18] MEDS: PROTONIX 40 MG PO (06:50)
[2024-05-18] MEDS: MAGNESIUM OXIDE 500 MG PO (06:50)
[2024-05-18 07:42] LABS: Urine Albumin Negative (Neg - Trace); Urine Bilirubin Negative (Negative); Urine Character Clear (Clear); Urine Color Yellow; Urine Glucose Negative (Negative); Urine Ketone Negative (Negative); Urine Leukocyte Negative (Negative); Urine Nitrite Negative (Negative); Urine Occult Blood Negative (Negative); Urine Specific Gravity 1.005 (<1.030); Urine Urobilinogen Negative (Neg - 1+)
[2024-05-18 07:46] LABS: ACT+ - POC 101 Seconds (82-134)
[2024-05-18 07:48] LABS: B.E. - POC 2.2 mmol/L; Glucose - POC 124 mg/dl (70-99); HCO3 - POC 26 mmol/L (21-28); Hematocrit - POC 32 % PCV (37-47); Hemodilution- POC No; Hemoglobin Calculated - POC 10.8; Ionized Calcium - POC 1.14 mmol/L (1.15-1.33); Lactate - POC 0.38 mmol/L (0.36-0.75); PCO2 - POC 34 mmHg (35-48); PO2 - POC 412 mmHg (83-108); Potassium - POC 4.2 mmol/L (3.5-5.1); Sodium - POC 138 mmol/L (136-145); Specimen Type - POC Arterial; pH - POC 7.48 (7.35-7.45)
[2024-05-18 09:22] LABS: ACT+ - POC 416 Seconds (82-134)
[2024-05-18 09:34] LABS: ACT+ - POC 441 Seconds (82-134)
[2024-05-18 09:45] LABS: ACT+ - POC 564 Seconds (82-134)
[2024-05-18 10:08] LABS: B.E. - POC 2.7 mmol/L; Glucose - POC 128 mg/dl (70-99); HCO3 - POC 27 mmol/L (21-28); Hematocrit - POC 29 % PCV (37-47); Hemodilution- POC Yes; Hemoglobin Calculated - POC 9.9; Ionized Calcium - POC 0.95 mmol/L (1.15-1.33); Lactate - POC 1.54 mmol/L (0.36-0.75); O2 Saturation %Calculated-POC 99.9 % (94-98); PCO2 - POC 42 mmHg (35-48); PO2 - POC 340 mmHg (83-108); Sodium - POC 138 mmol/L (136-145); Specimen Type - POC Arterial; pH - POC 7.43 (7.35-7.45)
[2024-05-18 10:19] LABS: ACT+ - POC 852 Seconds (82-134)
[2024-05-18 10:40] LABS: B.E. - POC -0.1 mmol/L; Glucose - POC 153 mg/dl (70-99); HCO3 - POC 26 mmol/L (21-28); Hematocrit - POC 30 % PCV (37-47); Hemodilution- POC Yes; Hemoglobin Calculated - POC 10.1; Ionized Calcium - POC 1.05 mmol/L (1.15-1.33); Lactate - POC 2.27 mmol/L (0.36-0.75); O2 Saturation %Calculated-POC 99.8 % (94-98); PCO2 - POC 47 mmHg (35-48); PO2 - POC 243 mmHg (83-108); Potassium - POC 5.5 mmol/L (3.5-5.1); Sodium - POC 139 mmol/L (136-145); Specimen Type - POC Arterial; pH - POC 7.35 (7.35-7.45)
[2024-05-18 10:44] LABS: ACT+ - POC 588 Seconds (82-134)
[2024-05-18 11:18] LABS: ACT+ - POC 96 Seconds (82-134)
--- NOTE | 2024-05-18 11:45 | CM ---
Chart reviewed. Patient is in the OR today. Patient is independent of ADLS, lives with her and 2 grandchildren in a 2 ST, 2 TIAN, has a RW at home if needed. Patient's son also lives on the property in a apartment. Plan is for the
patient to return home with CT Transitional RN.
--- NOTE | 2024-05-18 11:47 | W.CVOR.SURPR ---
CVOR Surgeon Immed Pre Op
-
I have examined this patient prior to performance of the scheduled procedure.
The patient's condition is unchanged from the time of the dictated/written History and
Physical and the patient is able to undergo the scheduled procedure.
--- NOTE | 2024-05-18 11:47 | W.IMMPOSTOP ---
Addendum entered and electronically signed by Ousmane Mandel MD 05/18/24 12:34:
[id number]
Original Note:
Surgical Immed Post Op Note
-
CARDIAC SURGERY OPERATIVE NOTE:
Preoperative Dx:
Mobile AV lesion c/w papillary fibroelastoma w/ Hx of recurrent CVAs
LAD calcifications on CTA-C
Postoperative Dx:
Same
Procedures:
1) Median sternotomy
2) Takedown of EMMA (narrow pedicle)
3) Aortotomy & inspection of AV
4) Resection of AV papillary fibroelastoma (presumptive dx) from NCC & resection of pronounced nodule of arantius on RCC
5) ELAA (40mm AtriClip)
6) CABG x 1 (EMMA to LAD)
7) Repair of aortic cannulation site
Surgeon:
Ousmane Mandel M.D.
Manager Of Marketing:
Ramirez ConnorADonta; executive administrative assistant throughout
Anesthesia:
Jose Rodriguez M.D. and Rufus Kirk, C.R.N.A.
Perfusion:
Flory Chauhan C.C.P.; CPB: 67min, XC: 56min
Findings:
EMMA was healthy, albeit somewhat small (1.5mm) conduit w/ brisk blood flow
AV was trileaflet w/ highly mobile, small (~3-4mm) papillary fibroelastoma attached to the aortic side of the NCC just anterior of midpoint of leaflet, flush resected at attachment point. AV leaflets were otherwise healthy appearing. There was a
prominent nodule of arantius on the RCC that was partially resected
SONAM was small w/ windsock morphology - SONAM clip placed at base w/ good visual result - SONAM confirmed closed on postop HYUN
LAD was visible on the epicardial surface, healthy garza at midpoint anastomosis w/ ELD 2.5mm
During aortic decannulation, aortic cannulation site w/ progressive, but contained tear; this was digitally controlled and successfully repaired w/ 3, 4-0 prolene pledgetted sutures placed at right angles w/ good hemostatic result. Normal
appearance of aorta on visual and HYUN assessment post repair
Good flow in EMMA-to-LAD visually and on postoperative transit-time U/S flow probe assessment
Post-HYUN: LVEF 65%, no RWMA; improved from 50-55%; AV mass not visualized, no AI, mean gradient 3mmHg; mild TR
Implants:
AtriClip; [id number], [id number]
CT x 3 (B/L pleural, anterior mediastinal)
Sternal wires x 10
Complications:
No significant; aortic cannulation required additional repair
Transfusions:
None
Condition:
68 sinus (0.5/0.2), 108/67, CVP 11
GTTS: levophed 3, precedex 0.5, insulin 1
Stable/guarded to CVICU
[2024-05-18 12:35] LABS: Glucose - Point of Care 172 mg/dl (70-99)
--- NOTE | 2024-05-18 12:35 | W.PN.CD ---
Addendum entered and electronically signed by Scottie Farmer MD 05/18/24 15:04:
Patient seen and examined in collaboration with DISINTEGRATOR FEEDER; agree with below.
-Patient underwent successful CT surgery for removal of papillary fibroblastoma on noncoronary cusp and CABG x 1.
-Remains intubated, on low-dose Levophed and Precedex.
-Continue supportive care and routine postoperative management as per CT surgery.
-alarm security or surveillance monitor.
-Will follow.
Original Note:
Today's Communication / Plan
-
-close post-op monitoring and care with weaning of drips and vent as tolerated per CT surgery/CVICU protocol
Impression / Plan
-
Papillary Fibroelastoma, CAD:
-s/p resection of AV papillary fibroelastoma from NCC & resection of pronounced nodule of arantius on RCC, ELAA (40mm AtriClip), CABG x 1 (EMMA to LAD), Dr. Mandel 05/18/24
-intubated/ventilated post-op
-CT's, Busch in place
-remains on Levophed, which requires intensive monitoring
-post-op EKG stable in SR
-Post-HYUN: LVEF 65%, no RWMA; improved from 50-55%; AV mass not visualized, no AI, mean gradient 3mmHg; mild TR
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
- Most likely secondary to papillary fibroelastoma on the aortic valve, now with intervention as above
- has been on ASA and Plavix since CVA, but Plavix held for surgery
- continue Lipitor LDL 69 03/2024.
HTN:
-monitor post-op
-on ARB as OP
HLD:
-continue Lipitor
Physical Exam
Vital Signs/Labs
Vital Signs
Temp Pulse Resp BP Pulse Ox
98.5 F 70 16 118/92 97
05/17/24 22:24 05/18/24 07:00 05/17/24 22:24 05/18/24 05:10 05/17/24 22:24
PT 12.8 Sec (11.4-14.6) 05/14/24 06:24
INR 0.93 05/14/24 06:24
APTT 111.6 Sec (23.4-35.0) H 05/18/24 05:14
Physical Exam
Constitutional: No acute distress
Cardiovascular: Rhythm & rate is regular
Respiratory: Lungs clear to auscul. and Other (intubated/ventilated)
Neuro/Psych: Other (intubated/sedated)
Other: Skin (midsternal incision site CDI)
Data Reviewed
-
Date of Service: May 18, 2024
EKG: Tracing Personally Visualized and interpreted (SR)
Echo: Report Reviewed by me (HYUN as noted )
X-Ray/CT/US/MRI/NUC/PET: Report Reviewed by me (no pleural effusion or pneumothorax, evidence for post-op state)
Labs: Labs Reviewed by me
[2024-05-18 12:37] LABS: B.E. 0.8 mmol/L; HCO3 25.3 mmol/L (21-28); Ionized Calcium 1.21 mMOL/L (1.15-1.33); O2 Saturation % 99.2 % (94-98); PCO2 39 mmHg (32-35); PO2 255 mmHg (83-108); Potassium 4.1 mMOL/L (3.5-5.1); Sodium 136 mMOL/L (136-145); pH 7.42 (7.35-7.45)
[2024-05-18 12:43] LABS: Mixed Venous O2 Saturation 78.6 %
[2024-05-18 12:49] LABS: Blood Urea Nitrogen 14 mg/dl (7-17); Estimated Creatinine Clearance 55 ml/min; Glucose 156 mg/dl (70-99); Magnesium 2.3 mg/dl (1.6-2.3)
[2024-05-18 12:51] LABS: INR 1.25; PT 16.2 Sec (11.4-14.6)
[2024-05-18 12:52] LABS: APTT 28.1 Sec (23.4-35.0)
[2024-05-18 12:55] LABS: Hematocrit 27.1 % (37.0-47.0); Hemoglobin 9.1 g/dL (12.0-16.0); Platelet Count 174 10^3/uL (130-400)
[2024-05-18] MEDS: ANCEF 10 IV ×2 (13:01)
[2024-05-18] MEDS: LR 250 ML IV ×2 (13:01→14:45)
[2024-05-18] MEDS: NSS 500 IV (13:01)
[2024-05-18] MEDS: TYLENOL PO (13:02)
[2024-05-18 13:06] LABS: Glucose - Point of Care 154 mg/dl (70-99)
[2024-05-18] MEDS: LIDOCAINE 4% PATCH TOPICAL (13:31)
[2024-05-18] MEDS: LOW STRENGTH ASPIRIN PO (13:31)
--- NOTE | 2024-05-18 13:31 | PTCARENOTE ---
Pt received from CVOR at 1220; Sedated and intubated; SR with prolonged QT rhythm on monitor; Friction rub present; VSS; +2 DP and radial pulses present; Lungs diminished at bases; ETT size 7.5 positioned and secured at 21 cm right lip; Ventilator
settings SIMV 14/450/5/5 FiO2 60%; CTx3 to -20 cm wall suction draining bloody drainage - no air leak, tidaling, or crepitus noted; Hypoactive BS; Busch catheter in place draining clear, yellow urine; Sternal midline incision covered with Aquacel
dressing - CDI; A-line in left radial artery, SLIC present in right Cordis - all lines zeroed and level; PIVx2 - #18 left forearm amd #20 right hand; Levo, insulin, precedex infusing - see nursing flowsheets for further details; See nursing
documentation for further information.
[2024-05-18 13:59] LABS: Glucose - Point of Care 129 mg/dl (70-99)
--- NOTE | 2024-05-18 15:01 | PTCARENOTE ---
Patient placed on CPAP trial by RT at bedside at 1450. ABG's due at 1520
[2024-05-18 15:05] LABS: Glucose - Point of Care 137 mg/dl (70-99)
[2024-05-18 15:29] LABS: Glucose - POC 131 mg/dl (70-99); HCO3 - POC 23 mmol/L (21-28); Hematocrit - POC 28 % PCV (37-47); Hemodilution- POC No; Hemoglobin Calculated - POC 9.7; Ionized Calcium - POC 1.18 mmol/L (1.15-1.33); Lactate - POC 2.63 mmol/L (0.36-0.75); O2 Saturation %Calculated-POC 99.4 % (94-98); PCO2 - POC 41 mmHg (35-48); PO2 - POC 166 mmHg (83-108); Sodium - POC 142 mmol/L (136-145); Specimen Type - POC Arterial; pH - POC 7.36 (7.35-7.45)
[2024-05-18 15:33] LABS: B.E. 0.7 mmol/L; Ionized Calcium 1.24 mMOL/L (1.15-1.33); PCO2 44 mmHg (32-35); PO2 160 mmHg (83-108); Potassium 3.4 mMOL/L (3.5-5.1); Sodium 138 mMOL/L (136-145); pH 7.38 (7.35-7.45)
--- NOTE | 2024-05-18 15:36 | PTCARENOTE ---
ABG's reviewed with CVNP at bedside; RT at bedside and extubated at 1530; Patient placed on 6L NC
[2024-05-18] MEDS: KCL 50 IV ×2 (15:43→16:43)
[2024-05-18 16:01] LABS: Glucose - Point of Care 129 mg/dl (70-99)
[2024-05-18 16:09] LABS: Hematocrit 29.3 % (37.0-47.0); Hemoglobin 9.8 g/dL (12.0-16.0); Platelet Count 199 10^3/uL (130-400)
[2024-05-18] MEDS: LOW STRENGTH ASPIRIN 81 MG PO (16:27)
--- NOTE | 2024-05-18 16:42 | CON.INTV ---
Consultation
Consultation Request
Date/Time Consultation Requested: 05/18/2024
Date/Time Consultation Performed: 05/18/24 330 pm
Requesting Provider: Ousmane Mandel
Performing Provider: Lona Colon
Reason for Consultation: Post-op management
Medical History
-
Chief Complaint: Recurrent CVA
History of Present Illness:
Patient is a 73-year-old female with history of hypertension, hyperlipidemia, former smoking who has had recurrent bilateral strokes in 2019 for. 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 She was admitted to the hospital for elective surgery. Postoperatively, patient was transferred to CVICU room on mechanical ventilator. Alumni Relations Officer consult was requested for management.
Pertinent past medical history. Recurrent strokes, hypertension, hyperlipidemia
Social history, patient smoked about 15 years and quit at age 28
Additional information will be obtained once patient is extubated and able to converse
Family History
Family History: Reviewed & Not Pertinent
Allergies / Home Medications
Allergies
Allergy/AdvReac Type Severity Reaction Status Date / Time
pollen extracts Allergy Nasal Verified 03/17/24 15:13
Congestion
Home Medications
�Medication �Instructions �Recorded �Confirmed �Last Taken �Type
therapeutic multivitamin 1 tab PO DAILY Supplement 03/06/24 05/13/24 05/12/24 08:00 History
aspirin 81 mg chewable tablet 81 mg PO DAILY #30 tabs 03/09/24 05/13/24 05/12/24 06:00 Rx
magnesium oxide 500 mg PO DAILY #30 tabs 03/09/24 05/13/24 05/12/24 06:00 Rx
atorvastatin 80 mg tablet 80 mg PO HS High Cholesterol 03/17/24 05/13/24 05/12/24 20:00 History
clopidogrel 75 mg tablet 75 mg PO DAILY #21 tabs 03/18/24 05/13/24 05/12/24 06:00 Rx
losartan 25 mg tablet 25 mg PO DAILY 05/13/24 05/13/24 05/12/24 06:00 History
Review of Systems
-
Unable to Obtain full review of systems at this time due to: Patient Intubation
Vitals / Labs / Diagnostic Testing
Vital Signs
Temp Pulse Resp BP Pulse Ox
99.0 F 83 11 103/65 100
05/18/24 16:00 05/18/24 16:00 05/18/24 16:00 05/18/24 16:00 05/18/24 16:00
Lab Data
05/18/24 15:59
05/18/24 12:25
Laboratory Results
05/17/24 05/18/24 05/18/24
17:55 05:14 12:25
PT 16.2 H
INR 1.25
APTT 88.7 H 111.6 H 28.1
pH 7.42
pCO2 39 H
pO2 255 H
HCO3 25.3
O2 Delivery Level
05/18/24
15:21
PT
INR
APTT
pH 7.38
pCO2 44 H
pO2 160 H
HCO3 26.0
O2 Delivery Level
Microbiology
05/15/24 08:33 Urine Urine Culture - Final
Diagnostic Testing: ABG with pH of 7.38, pCO2 44 and pO2 160.
Physical Exam
-
HEENT: Normocephalic
Cardiovascular: Regular Rhythm
Respiratory: Clear
GI: Soft
Neurology: Other (Patient was sedated during my evaluation)
Skin: Warm
General: Comfortable
Assessment
-
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 Patient was taken to the OR today and had removal
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
Patient was seen in the CVICU critical care room, she was on pressure support of 5 x 5 and was somnolent but able to spontaneously breathe. Patient was hemodynamically stable and was not requiring any pressors.
ABG with normal pH
S/p POD #1
Patient currently off pressors and hemodynamically stable
PA catheter readings reviewed
Management of chest tubes per primary service
Intubated/off sedation, currently tolerating pressure support 5 x 5 well, anticipate extubation later today
Pain control
RASS goal of 0 to -1
ABG(s) reviewed
CXR reviewed, chest tubes in place, no pneumothorax reported, no pulmonary edema noted.
Extubate per protocol
Maintain supplement oxygen as needed
No prior history of pulmonary disease
Prior PFTs reviewed
Can add nebulizers if needed
Aspiration precautions
Encouraged incentive spirometry, OOB/ambulation/early mobility
Advance diet as tolerated following extubation
GI prophylaxis if indicated for mechanical ventilation >48 hours
Monitor critical I/O's
Busch/chest tube output
Hb/platelets postoperatively stable
Trend CBC for now
Can transfuse if indicated for Hb <7, plt <50 in surgical patients
DVT prophylaxis including SCDs
Insulin protocol initiated and ongoing
Transition to SQ/off as indicated per team
Other chronic medical issues
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
-Hypertension, hyperlipidemia
We will follow
Critical Care time 45 mins -- The patient is admitted for acute critical illness for the treatment of vital organ failure and/or prevention of further life-threatening conditions. Total care includes time spent in review of history, physical exam,
medications, hemodynamic/ventilator parameters, laboratory data, imaging and discussion with house staff, pharmacy, respiratory therapy, lecturer in marketing, and nursing.
HYUN- 05/2024:
Overall LVEF is approximately 50-55% with no RWMA.
Stage II Diastolic dysfunction.
Mild tricuspid regurgitation.
Estimated pulmonary artery systolic pressure of 25-30 mmHg.
There is a 0.36 cm filamentous mass attached to the NCC (between the NCC/RCC).
No or AI. AV cusp motion is normal.
Mid ascending aorta is dilated measuring 3.5 cm at the level of the RPA. ST
junction is preserved.
Mild sessile atheroma seen in the descending aorta and distal arch.
[2024-05-18 17:02] LABS: Glucose - Point of Care 132 mg/dl (70-99)
[2024-05-18] MEDS: ANCEF 5 IV (17:09)
[2024-05-18] MEDS: PACERONE 200 MG PO ×2 (17:09→21:19)
[2024-05-18] MEDS: DILAUDID 0.5 MG IV ×2 (17:09→20:16)
[2024-05-18] MEDS: NEURONTIN 100 MG PO ×2 (17:09→21:19)
[2024-05-18] MEDS: OFIRMEV 100 IV (17:50)
[2024-05-18] MEDS: TORADOL 15 MG IV (17:50)
[2024-05-18 17:59] LABS: Glucose - Point of Care 127 mg/dl (70-99)
--- NOTE | 2024-05-18 20:00 | PTCARENOTE ---
Assumed care of the patient at 1900. Patient in bed, AOx3, drowsy, c/o sternal pain. SR on the monitor rate 80-90's, no edema, + pulses throughout, rub heard on auscultation. Lungs diminished at the bases, on 2LNC, IS encouraged. CTx3 present to -20
cm wall suction, no air leak, tidaling, or crepitus noted, sanguinous drainage in the chamber. BS hypoactive, abdomen SNT, tolerating pills. Busch catheter present draining clear, yellow urine. Sternal aquacell in place CDI, CT site dressing CDI.
RIJ Cordis with slic present, L radial arterial line present, lines leveled and zeroed, PIVx2. On insulin and Levo. See nursing worklist for additional intervention details.
[2024-05-18 20:12] LABS: Glucose - Point of Care 110 mg/dl (70-99)
[2024-05-18] MEDS: BACTROBAN 2% OINTMENT 1 APPLIC NASAL (21:18)
[2024-05-18] MEDS: LIPITOR 80 MG PO (21:19)
[2024-05-18] MEDS: SENOKOT-S 1 TABLET PO (21:19)
[2024-05-18] MEDS: TYLENOL 1000 MG PO (21:19)
[2024-05-18 22:07] LABS: Glucose - Point of Care 117 mg/dl (70-99)
[2024-05-18 23:03] LABS: Glucose - Point of Care 111 mg/dl (70-99)
[2024-05-19] VITALS (38 sets, daily range): BP systolic 81–141; BP diastolic 45–71; PULSE 75; O2SAT 95–99; BMI 23.0
[2024-05-19 00:08] LABS: Glucose - Point of Care 94 mg/dl (70-99)
[2024-05-19] MEDS: DILAUDID 0.5 MG IV (00:15)
--- NOTE | 2024-05-19 00:30 | PTCARENOTE ---
Assessment unchanged. LR bolus around 0005 for low UOP. Patient given pain medication PRN, sleeping between care, assessment of needs ongoing, liz dejesus within reach.
[2024-05-19 01:06] LABS: Glucose - Point of Care 98 mg/dl (70-99)
[2024-05-19] MEDS: ANCEF 5 IV ×2 (01:32→10:20)
[2024-05-19] MEDS: ROXICODONE 5 MG PO ×2 (01:32→17:14)
[2024-05-19] MEDS: ZOFRAN 4 MG IV (01:57)
[2024-05-19] MEDS: TORADOL 15 MG IV ×2 (02:09→13:13)
[2024-05-19 02:18] LABS: Glucose - Point of Care 134 mg/dl (70-99)
--- NOTE | 2024-05-19 02:18 | PTCARENOTE ---
Patient had an episode of emesis x1. HOB raised quickly, art line BP dropped to 80's systolic. Nitroglycerin stopped per CVPA. Patient given Zofran, Toradol. Arterial line and CVP re-leveled and zeroed, patient placed briefly back on Levo, Levo
stopped for MAP 78/systolic BP 125, resting in bed at this time.
--- NOTE | 2024-05-19 04:00 | PTCARENOTE ---
Patient's pressures labile throughout the morning, on/off levo and nitro as needed per protocol. Pain management as ordered. Sleeping between care. Assessment otherwise unchanged.
[2024-05-19 04:43] LABS: Hematocrit 24.4 % (37.0-47.0); Hemoglobin 8.1 g/dL (12.0-16.0); Mean Corp Hgb Conc. 33.2 g/dL (33.0-37.0); Mean Corpuscular Volume 93.5 fL (81.0-99.0); Mean Platelet Volume 10.3 fL (7.4-10.4); Platelet Count 155 10^3/uL (130-400); Red Blood Cell Count 2.61 10^6/uL (4.20-5.40); Red Cell Dist. Width 13.5 % (11.5-14.5); White Blood Cell Count 19.2 10^3/uL (4.8-10.8)
[2024-05-19 05:01] LABS: Blood Urea Nitrogen 21 mg/dl (7-17); Calcium 8.8 mg/dl (8.4-10.2); Carbon Dioxide 23 mmol/L (22-30); Chloride 105 mmol/L (98-107); Estimated Creatinine Clearance 48 ml/min; Glucose 90 mg/dl (70-99); Magnesium 1.9 mg/dl (1.6-2.3); Potassium 4.3 mmol/L (3.5-5.1); Sodium 138 mmol/L (135-145); eGFR > 60.00
[2024-05-19] MEDS: TYLENOL 1000 MG PO ×3 (05:12→21:40)
[2024-05-19 06:11] LABS: Glucose - Point of Care 101 mg/dl (70-99)
[2024-05-19 06:11] LABS: Glucose - Point of Care 96 mg/dl (70-99)
--- NOTE | 2024-05-19 06:19 | W.PN.CT ---
Today's Communication / Plan
-
-pod #1
-no issues overnight
-drips: insulin, Nitro 10
-CT outputs: 1 med , 2 pleur 60/140 in 12/24 hrs
-deline
-d/c Busch
-ASA and Plavix resumed (was on ASA and Plavix preop for embolic CVAs)
-current meds (ASA, Plavix, Lipitor, Lopressor, Amio, Protonix)
-encourage IS, OOB
Assessment / Plan
-
-S/p Resection of AV papillary fibroelastoma (presumptive dx) from NCC & resection of pronounced nodule of arantius on RCC; CABG x 1 (EMMA to LAD); Repair of aortic cannulation site; ELAA (40mm AtriClip)
by Dr. Mandel on 05/18/24, pod #1
-Post-HYUN: LVEF 65%, no RWMA; improved from 50-55%; AV mass not visualized, no AI, mean gradient 3mmHg; mild TR
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
-LVEF 55-60%
-Moderate LAD calcific plaque seen on CTA
-Mild TR
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
-Plavix washout, last dose 05/13/24
-HTN
-HLD
-Prediabetes (hgb A1C 6.0)
-GERD
-IBS
-Osteoporosis
-Incidental finding of multiple pulmonary nodules @ RUL (7.8 mm)
-S/P spinal fusion
-S/P bilateral cataract extractions
-Acute postop blood loss anemia
-Acute postop atelectasis
-Acute postop hypovolemia with subsequent hypervolemia
Discussed patient care with: Nursing and Care Team
Subjective
-
Date of Service: May 19, 2024
Objective Data
-
PT 16.2 Sec (11.4-14.6) H 05/18/24 12:25
INR 1.25 05/18/24 12:25
APTT 28.1 Sec (23.4-35.0) 05/18/24 12:25
Vital Signs
Vital Signs
Temp Pulse Resp BP Pulse Ox
99.3 F 94 15 113/67 98
05/19/24 00:00 05/19/24 00:45 05/19/24 00:45 05/19/24 00:18 05/19/24 00:45
CT Intake/Output/Weight
05/18/24 05/18/24 05/19/24
06:59 18:59 06:59
Intake Total 240 / 960 1028.3 / 1309.0 280.7 / 1309.0
Output Total 655 / 880 225 / 880
Balance 240 / 960 373.3 / 429.0 55.7 / 429.0
SaO2: 98
Physical Exam
-
General: Awake and AOx3
Cardiovascular: Regular rate & rhythm, No Murmurs and No Rub
Respiratory: Decreased Breath Sounds
Sternum: Stable
Incision: Clean, Dry and Dressing Intact
Extremities: No Edema (2+ DPs b/l)
Abdomen: soft, nontender, nondistended, decreased + bowel sounds
Data Reviewed
-
Lab Results: Results Reviewed
Medications: Active Meds Reviewed
Chest X-Ray: Report Reviewed and Image Reviewed
ECG: Report Reviewed and Image Reviewed
[2024-05-19] MEDS: LOPRESSOR 12.5 MG PO ×2 (07:57→21:41)
[2024-05-19] MEDS: SENOKOT-S 1 TABLET PO ×2 (07:57→21:40)
[2024-05-19] MEDS: PLAVIX 75 MG PO (07:58)
[2024-05-19] MEDS: PROTONIX 40 MG PO (07:58)
[2024-05-19] MEDS: PACERONE 200 MG PO ×3 (07:58→21:40)
[2024-05-19] MEDS: MAGNESIUM OXIDE 500 MG PO ×2 (07:58→21:41)
[2024-05-19] MEDS: BACTROBAN 2% OINTMENT 1 APPLIC NASAL ×2 (07:59→21:40)
[2024-05-19] MEDS: LOW STRENGTH ASPIRIN 81 MG PO (07:59)
[2024-05-19] MEDS: NEURONTIN 100 MG PO ×3 (07:59→21:41)
[2024-05-19] MEDS: THERAGRAN 1 TABLET PO (07:59)
--- NOTE | 2024-05-19 08:00 | PTCARENOTE ---
Patient recieved from RN @0700. Lying in bed comfortably w/ call dejesus in reach. NSR BP 111/57 HR 86 radial and pedal pulses present bilaterally. Rub noted. Lungs clear bilaterally and diminished in the bases. POX 99% 2L NC. IS 1000. 3 chest
tubes, 1 mediastinal 1 Left pleural, and 1 right pleural set to -20. Draining red fluid WNL. No crepitus or tidaling noted. Clear liquid diet for breakfast. Busch draining clear yellow urine. Right A-line zeroed and flushed. RIJ cordis patent
and intact. Left PIV and Right PIV patent and intact. Insulin infusing per glycemic protocol. Sternal incision dressing dry and intact.
[2024-05-19 08:16] LABS: Glucose - Point of Care 109 mg/dl (70-99)
--- NOTE | 2024-05-19 09:21 | W.PN.CD ---
Today's Communication / Plan
-
-Extubated yesterday; clinically stable.
-Remains in sinus rhythm on telemetry.
-Continue routine post-surgical management as per CT Surgery team.
Impression / Plan
-
Papillary Fibroelastoma/CAD:
-S/p resection of AV papillary fibroelastoma from NCC & resection of pronounced nodule of arantius on RCC, ELAA (40mm AtriClip), CABG x 1 (EMMA to LAD), Dr. Mandel 05/18/24
-Post-HYUN: LVEF 65%, no RWMA; improved from 50-55%; AV mass not visualized, no AI, mean gradient 3mmHg; mild TR
-Extubated yesterday; clinically stable.
-CT's in place.
-Post-op EKG stable; possible mild pericarditis, but patient asymptomatic.
-Remains in sinus rhythm on telemetry.
-Continue routine post-surgical management as per CT Surgery team.
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
- Most likely secondary to papillary fibroelastoma on the aortic valve; s/p with intervention as above
- ASA/Plavix resumed.
- continue Lipitor LDL 69 03/2024.
HTN:
-BP stable/controlled
-on ARB as OP
HLD:
-continue Lipitor
Physical Exam
Vital Signs/Labs
Vital Signs
Temp Pulse Resp BP Pulse Ox
99.9 F 72 16 104/51 99
05/19/24 09:00 05/19/24 09:00 05/19/24 09:00 05/19/24 09:00 05/19/24 09:00
05/18/24 05/19/24 05/20/24
06:59 06:59 06:59
Actual Weight 57 kg
05/19/24 04:07
05/19/24 04:07
PT 16.2 Sec (11.4-14.6) H 05/18/24 12:25
INR 1.25 05/18/24 12:25
APTT 28.1 Sec (23.4-35.0) 05/18/24 12:25
Magnesium 1.9 mg/dl (1.6-2.3) 05/19/24 04:07
Physical Exam
Constitutional: No acute distress and Comfortable
EENT: Anicteric
Cardiovascular: Rhythm & rate is regular, Pedal edema is absent, Systolic murmur absent and S1S2 is normal
Respiratory: Respiratory effort normal and Lungs clear to auscul.
GI: Soft
Neuro/Psych: AO x 3
Other: Skin (Warm, dry, intact)
Data Reviewed
-
Date of Service: May 19, 2024
EKG: Tracing Personally Visualized and interpreted (Telemetry: Sinus rhythm)
Echo: Report Reviewed by me (Normal LVEF)
Medical Tests (PFT, Pathology etc): Discussed with Nurse and Discussed with Family ( at bedside)
Labs: Labs Reviewed by me
--- NOTE | 2024-05-19 09:32 | W.PN.ANS.POP ---
Anesthesia Post Operative
- Anesthesia Post Op Note
Vital Signs Stable-See Nursing Note: Yes
Airway Patent: Yes
Adequate Pain Control: Yes
Change in Mental Status: No
Current Postoperative Nausea & Vomiting: No
Anesthesia Complications: No
General Anesthetic Recall: No
Unplanned Admission: No
Post Op Hydration Adequate: Yes
[2024-05-19 10:29] LABS: Glucose - Point of Care 119 mg/dl (70-99)
[2024-05-19] MEDS: ROXICODONE 2.5 MG PO (10:54)
--- NOTE | 2024-05-19 11:00 | PTCARENOTE ---
A-Line D/C per CT FOOD SERVICE TRAY ATTENDANT Maida. Busch Removed at @ [address] FOOD SERVICE TRAY ATTENDANT Maida. Due to void @ 1700. Patient described pain 07/23. 2.5 Ellen given, see MAR for details.
--- NOTE | 2024-05-19 11:21 | CM ---
Chart reviewed. Patient is OOB sitting in the chair. Patient is independent of ADLS, lives with her and grandchildren in a 2 STH, 2 TIAN, 0 DME. Patient's daughter and son in law live in a apartment on the property. Plan is for the
patient to return home with CT Transitional RN. CM to follow
[2024-05-19] MEDS: NSS IV (11:56)
[2024-05-19 12:04] LABS: Glucose - Point of Care 110 mg/dl (70-99)
[2024-05-19] MEDS: LR 500 IV ×2 (12:23→18:20)
--- NOTE | 2024-05-19 12:27 | PTCARENOTE ---
Patient sitting in chair comfortable w/ call dejesus in reach. Insulin D/C per CT PLANT TAXONOMY TEACHER Maida. BP 87/56, CT PLANT TAXONOMY TEACHER Maida notified. 500 LR bolus given. See MAR for details.
--- NOTE | 2024-05-19 13:10 | PTCARENOTE ---
Assumed care of patient at 1230. Pt is awake, alert, and oriented. Pt with complaints of pain, PRN Toradol and Flexeril administered per order. Pt remains SR with HR 80's-90's. BP 108/52 MAP 66. Pulse oximetry 96% on room air. Mediastinal and
left/right pleural chest tube in place. Pt refusing lunch. Pt is due to void by 1700. Midsternal incision dressing CDI. Right IJ cordis in place with KVO. Pt currently resting OOB in chair.
[2024-05-19] MEDS: FLEXERIL 5 MG PO (13:13)
--- NOTE | 2024-05-19 13:45 | W.PN.INTV ---
Addendum entered and electronically signed by Lona Colon MD 05/20/24 13:12:
- Patient getting transferred out of ICU
-Polishing Wheel Setter service will sign off, please consult as needed
Original Note:
Today's Communication / Plan
Recommendations
- Activity as tolerated
-Incentive spirometry
Assessment
-
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 Patient was taken to the OR today and had removal
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
Patient was seen in the CVICU critical care room, she was on pressure support of 5 x 5 and was somnolent but able to spontaneously breathe. Patient was hemodynamically stable and was not requiring any pressors.
ABG with normal pH
S/p POD #2
Patient currently off pressors and hemodynamically stable
Management of chest tubes per primary service
Patient extubated and is breathing on room air with saturation 96%
ABG(s) reviewed
CXR reviewed, chest tubes in place, no pneumothorax reported, no pulmonary edema noted.
No prior history of pulmonary disease
Prior PFTs reviewed
Can add nebulizers if needed
Aspiration precautions
Encouraged incentive spirometry, OOB/ambulation/early mobility
Advance diet as tolerated following extubation
GI prophylaxis if indicated for mechanical ventilation >48 hours
Monitor critical I/O's
Busch/chest tube output
Hb/platelets postoperatively stable
Trend CBC for now
Can transfuse if indicated for Hb <7, plt <50 in surgical patients
DVT prophylaxis including SCDs
Transition to SQ/off as indicated per team
Other chronic medical issues
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
-Hypertension, hyperlipidemia
We will follow
Critical Care time 30 mins -- The patient is admitted for acute critical illness for the treatment of vital organ failure and/or prevention of further life-threatening conditions. Total care includes time spent in review of history, physical exam,
medications, hemodynamic/ventilator parameters, laboratory data, imaging and discussion with house staff, pharmacy, respiratory therapy, corporate communications manager, and nursing.
HYUN- 05/2024:
Overall LVEF is approximately 50-55% with no RWMA.
Stage II Diastolic dysfunction.
Mild tricuspid regurgitation.
Estimated pulmonary artery systolic pressure of 25-30 mmHg.
There is a 0.36 cm filamentous mass attached to the NCC (between the NCC/RCC).
No or AI. AV cusp motion is normal.
Mid ascending aorta is dilated measuring 3.5 cm at the level of the RPA. ST
junction is preserved.
Mild sessile atheroma seen in the descending aorta and distal arch.
Subjective Dataa
Subjective Data
Date of Service:
Date of Service: May 19, 2024
Subjective:
Patient was sitting in chair during my evaluation and was in no acute distress.
Review of Systems
Genitourinary: Other (All 14 systems reviewed and negative except as stated above in the history of present illness.)
Objective Data
Data Reviewed
Vital Signs / I&O / Oxygen:
Vital Signs
Temp Pulse Resp BP Pulse Ox
98.6 F 72 16 105/62 94
05/19/24 11:57 05/19/24 12:15 05/19/24 12:15 05/19/24 12:10 05/19/24 12:15
Intake and Output
05/18/24 05/19/24 05/20/24
06:59 06:59 06:59
Intake Total 960 / 960 1739.0 / 1760.1 1175.2 / 1175.2
Output Total 1193 / 1223 145 / 145
Balance 960 / 960 546.0 / 537.1 1030.2 / 1030.2
SaO2 [CPAP/PSV] 100
SaO2 [SIMV] 99
SaO2 94
Nasal Cannula flow liters per 2
minute
Physical Exam
General: Comfortable
HEENT: Normocephalic
Cardiovascular: Regular Rhythm
Respiratory: Clear
GI: Soft
Neurology: Awake and Alert
Labs/Micro/Reports
Lab Data
05/19/24 04:07
05/19/24 04:07
Laboratory Results
05/18/24
15:21
pH 7.38
pCO2 44 H
pO2 160 H
HCO3 26.0
O2 Delivery Level
Microbiology
05/15/24 08:33 Urine Urine Culture - Final
--- NOTE | 2024-05-19 17:30 | PTCARENOTE ---
Pt with no changes in assessment. Pt remains SR with HR 90's. BP 133/70 MAP 87. Pulse oximetry 95% on room air. Pt with continued complaints of pain, PRN Roxicodone administered. Pt due to void, bladder scanned for 181. CT BRENDAN, Maida, made aware.
500mL fluid bolus administered per order.
--- NOTE | 2024-05-19 20:00 | PTCARENOTE ---
Assumed care of the patient at 1900. Patient AOx3, OOB in chair, pain an acceptable level. SR on telemetry rate 80's, VSS, no edema, + pulses, rub heard on auscultation. Lungs diminished at the bases, CTx3 present to -20 cm wall suction, no air
leak, tidaling, or crepitus noted; serosanguineous drainage in the chamber, RA. Hypoactive bowel sounds, appetite ok, no nausea, abdomen SNT. Voiding raghav urine without difficulty. MS incision aquacell intact, CT site dressing CDI. PIVx2 and RIJ
cordis present. Patient placed back into bed and resting comfortably. Assessment of needs ongoing.
[2024-05-19] MEDS: LIPITOR 80 MG PO (21:41)
[2024-05-20] VITALS (11 sets, daily range): BP systolic 101–131; BP diastolic 51–67; PULSE 76; O2SAT 93–98; BMI 23.5
--- NOTE | 2024-05-20 00:21 | PTCARENOTE ---
Assessment unchanged, patient sleeping comfortably between care.
--- NOTE | 2024-05-20 04:00 | PTCARENOTE ---
Assessment unchanged, VSS, patient sleeping between care, voiding in the bathroom PRN.
[2024-05-20 04:59] LABS: Hematocrit 21.8 % (37.0-47.0); Hemoglobin 7.2 g/dL (12.0-16.0); Mean Corpuscular Hgb 31.7 pg (27.0-31.0); Mean Platelet Volume 10.4 fL (7.4-10.4); Platelet Count 147 10^3/uL (130-400); Red Blood Cell Count 2.27 10^6/uL (4.20-5.40); Red Cell Dist. Width 14.5 % (11.5-14.5); White Blood Cell Count 16.1 10^3/uL (4.8-10.8)
[2024-05-20 05:20] LABS: Blood Urea Nitrogen 25 mg/dl (7-17); Calcium 8.7 mg/dl (8.4-10.2); Carbon Dioxide 29 mmol/L (22-30); Chloride 102 mmol/L (98-107); Estimated Creatinine Clearance 48 ml/min; Glucose 134 mg/dl (70-99); Magnesium 2.3 mg/dl (1.6-2.3); Potassium 4.3 mmol/L (3.5-5.1); Sodium 133 mmol/L (135-145); eGFR > 60.00
[2024-05-20] MEDS: TYLENOL 1000 MG PO ×3 (05:50→22:48)
[2024-05-20] MEDS: ROXICODONE 5 MG PO (05:51)
--- NOTE | 2024-05-20 06:47 | W.PN.CT ---
Today's Communication / Plan
-
-pod #2
-doing well, no issues overnight
-Hg 7.2 today (8.1 on 05/19 and 9.8 on 05/18). Wt is up 8 lbs from preop
-diurese
-CT outputs: med 20/45, 2 pleur 90/175 in 12/24 hrs
-tm 100.3 - encourage IS
-encourage OOB, ambulate
Assessment / Plan
-
-S/p Resection of AV papillary fibroelastoma (presumptive dx) from NCC & resection of pronounced nodule of arantius on RCC; CABG x 1 (EMMA to LAD); Repair of aortic cannulation site; ELAA (40mm AtriClip) by Dr. Mandel on 05/18/24, pod #2
-Post-HYUN: LVEF 65%, no RWMA; improved from 50-55%; AV mass not visualized, no AI, mean gradient 3mmHg; mild TR
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
-LVEF 55-60%
-Moderate LAD calcific plaque seen on CTA
-Mild TR
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
-Plavix washout, last dose 05/13/24
-HTN
-HLD
-Prediabetes (hgb A1C 6.0)
-GERD
-IBS
-Osteoporosis
-Incidental finding of multiple pulmonary nodules @ RUL (7.8 mm)
-S/P spinal fusion
-S/P bilateral cataract extractions
-Acute postop blood loss anemia
-Acute postop atelectasis
-Acute postop hypovolemia with subsequent hypervolemia
Discussed patient care with: Nursing and Care Team
Subjective
-
Date of Service: May 20, 2024
Objective Data
-
Lab Results
05/20/24 04:39
05/20/24 04:39
PT 16.2 Sec (11.4-14.6) H 05/18/24 12:25
INR 1.25 05/18/24 12:25
APTT 28.1 Sec (23.4-35.0) 05/18/24 12:25
Vital Signs
Vital Signs
Temp Pulse Resp BP Pulse Ox
98.5 F 76 14 129/67 95
05/20/24 04:14 05/20/24 04:14 05/20/24 04:14 05/20/24 04:14 05/20/24 04:[address] Intake/Output/Weight
05/19/24 05/19/24 05/20/24
06:59 18:59 06:59
Intake Total 710.7 / 1760.1 1735.2 / 1885.2 150 / 1885.2
Output Total 538 / 1223 200 / 710 510 / 710
Balance 172.7 / 537.1 1535.2 / 1175.2 -360 / 1175.2
SaO2: 95
Physical Exam
-
General: Awake and AOx3
Cardiovascular: Regular rate & rhythm (elevated JVD), Murmur and No Rub
Respiratory: Rales (at bases, no wheeze)
Sternum: Stable
Incision: Clean, Dry and Intact
Extremities: Edema +1
Abdomen: soft, nontender, + bowel sounds, nondistended, + flatus
Data Reviewed
-
Lab Results: Results Reviewed
Medications: Active Meds Reviewed
Chest X-Ray: Report Reviewed and Image Reviewed
ECG: Report Reviewed and Image Reviewed
[2024-05-20] MEDS: LOPRESSOR 12.5 MG PO ×2 (08:18→21:00)
[2024-05-20] MEDS: MAGNESIUM OXIDE 500 MG PO ×2 (08:18→21:01)
[2024-05-20] MEDS: NEURONTIN 100 MG PO ×3 (08:19→22:49)
[2024-05-20] MEDS: THERAGRAN 1 TABLET PO (08:19)
[2024-05-20] MEDS: PLAVIX 75 MG PO (08:19)
[2024-05-20] MEDS: PACERONE 200 MG PO ×3 (08:19→22:49)
[2024-05-20] MEDS: SENOKOT-S 1 TABLET PO ×2 (08:19→21:01)
[2024-05-20] MEDS: LOW STRENGTH ASPIRIN 81 MG PO (08:19)
[2024-05-20] MEDS: PROTONIX 40 MG PO (08:19)
[2024-05-20] MEDS: LASIX 40 MG IV ×2 (08:19→13:44)
[2024-05-20] MEDS: BACTROBAN 2% OINTMENT 1 APPLIC NASAL ×2 (08:20→20:59)
--- NOTE | 2024-05-20 09:06 | PTCARENOTE ---
Patient received from restaurant shift supervisor RN; AAOx3, responds spontaneously to RN and follows commands; Baseline neuropathy in B/L hands and legs; COCOPAH; VSS; NSR on monitor; Friction rub present; +2 DP and radial pulses; Shallow respirations; SpO2 94-98% on
RA; Crackles at bases; IS 1000 ml; CTx3 connected to -20 cm wall suction draining serosanguineous drainage - no tidaling, crepitus, or air leak noted; Poor appetite; Patient urinating clear, yellow urine; Sternal incision covered with Aquacel
dressing - CDI; RIJ Cordis with KVO infusing; PIV x2 - #18 left forearm and #20 right hand; IV Lasix 40 mg ordered and given; See nursing documentation for further details.
[2024-05-20] MEDS: FEOSOL 325 MG PO (09:21)
[2024-05-20] MEDS: VITAMIN C 500 MG PO (09:21)
--- NOTE | 2024-05-20 09:29 | W.PN.CD ---
Today's Communication / Plan
-
-No major events overnight; remains clinically stable.
-Sinus rhythm on telemetry.
-Continue routine post-surgical management as directed by CT Surgery.
-Continue alarm security or surveillance monitor.
Impression / Plan
-
Papillary Fibroelastoma/CAD:
-S/p resection of AV papillary fibroelastoma from [facility] & resection of pronounced nodule of arantius on RCC, ELAA (40mm AtriClip), CABG x 1 (EMMA to LAD), Dr. Mandel 05/18/24
-Post-HYUN: LVEF 65%, no RWMA; improved from 50-55%; AV mass not visualized, no AI, mean gradient 3mmHg; mild TR
-No major events overnight; remains clinically stable.
-CT's in place.
-Post-op EKG stable; possible mild pericarditis, but patient asymptomatic.
-Sinus rhythm on telemetry.
-Continue routine post-surgical management as directed by CT Surgery.
-Continue alarm security or surveillance monitor.
-Management of anemia by primary team.
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
- Most likely secondary to papillary fibroelastoma on the aortic valve; s/p with intervention as above
-Continue ASA/Plavix.
-Continue Lipitor; LDL 69 03/2024.
HTN:
-Blood pressure remains stable/controlled.
-Continue current dose of Lopressor.
HLD:
-Stable
-Continue high-dose atorvastatin.
Physical Exam
Vital Signs/Labs
Vital Signs
Temp Pulse Resp BP Pulse Ox
98.9 F 84 20 110/57 96
05/20/24 07:27 05/20/24 09:00 05/20/24 08:00 05/20/24 07:27 05/20/24 08:00
05/19/24 05/20/24 05/21/24
06:59 06:59 06:59
Actual Weight 57 kg 58.3 kg
05/20/24 04:39
05/20/24 04:39
PT 16.2 Sec (11.4-14.6) H 05/18/24 12:25
INR 1.25 05/18/24 12:25
APTT 28.1 Sec (23.4-35.0) 05/18/24 12:25
Magnesium 2.3 mg/dl (1.6-2.3) 05/20/24 04:39
Physical Exam
Constitutional: No acute distress and Comfortable
EENT: Anicteric
Cardiovascular: Rhythm & rate is regular, Pedal edema is absent, Systolic murmur absent and S1S2 is normal
Respiratory: Respiratory effort normal and Rhonchi Present (Mild bibasilar)
GI: Soft
Neuro/Psych: AO x 3
Other: Skin (Warm, dry, intact)
Data Reviewed
-
Date of Service: May 20, 2024
EKG: Tracing Personally Visualized and interpreted (Telemetry: Sinus rhythm)
Medical Tests (PFT, Pathology etc): Discussed with Physician and Discussed with Nurse
Labs: Labs Reviewed by me
Critical Care Time (in minutes): 35
--- NOTE | 2024-05-20 10:05 | PTCARENOTE ---
Chest tubes removed at bedside by RN; VSS; No bleeding or complications noted; Patient resting comfortably in bed
--- NOTE | 2024-05-20 11:33 | CM ---
Chart reviewed. Patient ambulating the halls. Patient is independent of ADLS, lives with her and 2 grandchildren in a 2 STH, 2 TIAN, 0 DME but has a RW at home if needed. Patient's daughter and LAMONTE live on the property in a apartment.
Plan is for the patient to return home with CT Transitional RN. CM to follow
[2024-05-20] MEDS: NSS IV (11:46)
--- NOTE | 2024-05-20 14:02 | PTCARENOTE ---
Patient ambulating hallways with RN; IV Lasix 40 mg ordered and given; Patient resting comfortably in chair
--- NOTE | 2024-05-20 16:15 | PTCARENOTE ---
Patient received from RN @9650. Patient lying in bed comfortable w/ call dejesus in reach. AAOx3. NSR BP 110/56 HR 77 heart sounds audible. Radial and pedal pulses present bilaterally. Lungs clear bilaterally w/ shallow respirations. POX 94% RA.
Voiding clear yellow urine. Bowel sounds normoactive. RIJ cordis, left AC PIV, and right hand PIV patent and intact. Sternal dressing dry and intact. Discussed plan w/ patient and questions encouraged.
[2024-05-20] MEDS: NSS 500 IV (17:17)
--- NOTE | 2024-05-20 21:00 | PTCARENOTE ---
Patient received resting in bed watching television. Patient A+A+Ox3. No neurological deficits noted. No c/o pain or discomfort. Patient assisted to bathroom with assist x1. Voided 200 ml yellow urine. Washed face and brushed teeth. Patient
back to bed. No c/o headache, dizziness or lightheadedness. No c/o SOB. Room air. SpO2 94%. Sinus Rhythm. Heart rate 80's. Blood pressure 120/60 (77). Patient with no c/o chest pain, pressure or discomfort. Normoactive bowel sounds. No BM.
No c/o nausea. No vomiting. Sternal dressing intact. Chest tube dressing intact. Right I.J. Cordis intact. Positive, palpable pulses. No c/o back or flank pain. Assessment as documented.
[2024-05-20] MEDS: LIPITOR 80 MG PO (22:48)
[2024-05-20] MEDS: KCL 20 MEQ PO (22:49)
[2024-05-21] VITALS (16 sets, daily range): BP systolic 87–129; BP diastolic 46–72; BMI 22.8
--- NOTE | 2024-05-21 00:30 | PTCARENOTE ---
Patient sleeping without difficulty. No further changes from previous assessment.
--- NOTE | 2024-05-21 05:00 | PTCARENOTE ---
Patient A+A+Ox3. No neurological deficits noted. No c/o pain or discomfort. AM labs collected and sent. OOB to bathroom and chair in AM. Assessment/Interventions as documented.
[2024-05-21 05:13] LABS: Mean Corp Hgb Conc. 33.3 g/dL (33.0-37.0); Mean Corpuscular Hgb 31.5 pg (27.0-31.0); Mean Corpuscular Volume 94.6 fL (81.0-99.0); Mean Platelet Volume 10.2 fL (7.4-10.4); Platelet Count 118 10^3/uL (130-400); Red Blood Cell Count 2.22 10^6/uL (4.20-5.40); Red Cell Dist. Width 14.2 % (11.5-14.5); White Blood Cell Count 12.7 10^3/uL (4.8-10.8)
[2024-05-21 05:37] LABS: Blood Urea Nitrogen 23 mg/dl (7-17); Calcium 8.3 mg/dl (8.4-10.2); Carbon Dioxide 31 mmol/L (22-30); Chloride 98 mmol/L (98-107); Estimated Creatinine Clearance 55 ml/min; Glucose 114 mg/dl (70-99); Potassium 3.9 mmol/L (3.5-5.1); Sodium 133 mmol/L (135-145); eGFR > 60.00
--- NOTE | 2024-05-21 06:17 | W.PN.CT ---
Addendum entered and electronically signed by Ousmane Mandel MD 05/21/24 09:59:
Patient with small apical pneumothorax on chest x-ray today. Will obtained chest x-ray at noon to ensure this does not increase in size.
Addendum entered and electronically signed by Ousmane Mandel MD 05/21/24 09:02:
I saw and examined the patient.
The PA's note was reviewed and I agree with the note.
Comment:
Postop day #3 status post resection of aortic valve likely fibroelastoma, CABG x 1, exclusion left atrial appendage
No major overnight issues. Doing quite well. Good diuresis yesterday.
Echo yesterday with normal-appearing aortic valve without any aortic insufficiency.
Transfuse 1 unit of packed red blood
Out of bed, I-S, ambulate.
Discharge planning for hopefully tomorrow.
Original Note:
Today's Communication / Plan
-
-pod#3
-doing well, no issues overnight
-weaned off O2- pOx 92-94% on RA
-diuresed with 40 iv bid Lasix on 05/20 (UO 2575)
-Echo 05/20 with nl AV, no AI
-follow Hg- 7.0 today (7.2 on 05/20 and 8.1 on 05/19)
-follow platelets - 118K today (147 on 05/20, 155 on 05/19)
-follow Cr - 0.7 today
-K 3.9- gave 20 KCL
-current meds (ASA, Plavix, Lipitor, Lopressor, Amio, Protonix)
-encourage IS, OOB, ambulate
-possible d/c soon
Assessment / Plan
-
-S/p Resection of AV papillary fibroelastoma (presumptive dx) from [facility] & resection of pronounced nodule of arantius on RCC; CABG x 1 (EMMA to LAD); Repair of aortic cannulation site; ELAA (40mm AtriClip) by Dr. Mandel on 05/18/24, pod #3
-Post-HYUN: LVEF 65%, no RWMA; improved from 50-55%; AV mass not visualized, no AI, mean gradient 3mmHg; mild TR
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
-LVEF 55-60%
-Moderate LAD calcific plaque seen on CTA
-Mild TR
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
-Plavix washout, last dose 05/13/24
-HTN
-HLD
-Prediabetes (hgb A1C 6.0)
-GERD
-IBS
-Osteoporosis
-Incidental finding of multiple pulmonary nodules @ RUL (7.8 mm)
-S/P spinal fusion
-S/P bilateral cataract extractions
-Acute postop blood loss anemia
-Acute postop atelectasis
-Acute postop hypovolemia with subsequent hypervolemia
Echo 05/20/24:
LV ejection fraction is 65-70%. No regional wall motion abnormalities are seen.
Normal right ventricular size and function.
Trileaflet aortic valve. Aortic valve opens normally. No aortic regurgitation is seen.
Discussed patient care with: Nursing and Care Team
Subjective
-
Date of Service: May 21, 2024
Objective Data
-
PT 16.2 Sec (11.4-14.6) H 05/18/24 12:25
INR 1.25 05/18/24 12:25
APTT 28.1 Sec (23.4-35.0) 05/18/24 12:25
Vital Signs
Vital Signs
Temp Pulse Resp BP Pulse Ox
98.9 F 74 16 131/65 92
05/20/24 22:45 05/21/24 01:00 05/20/24 22:45 05/20/24 22:49 05/20/24 22:[address]
CT Intake/Output/Weight
05/20/24 05/20/24 05/21/24
06:59 18:59 06:59
Intake Total 150 / 1885.2 800 / 1110 310 / 1110
Output Total 510 / 710 2600 / 2900 300 / 2900
Balance -360 / 1175.2 -1800 / -1790 /
SaO2: 92
Physical Exam
-
General: Awake and AOx3
Cardiovascular: Regular rate & rhythm and No Murmurs
Respiratory: Decreased Breath Sounds
Sternum: Stable
Incision: Clean, Dry and Intact
Extremities: Edema +1
Abdomen: soft, nontender, nondistended, + bowel sounds
Data Reviewed
-
Lab Results: Results Reviewed
Medications: Active Meds Reviewed
Chest X-Ray: Report Reviewed and Image Reviewed
ECG: Report Reviewed and Image Reviewed
[2024-05-21] MEDS: KCL 20 MEQ PO (06:40)
[2024-05-21] MEDS: TYLENOL 1000 MG PO ×3 (06:40→22:09)
[2024-05-21] MEDS: LOPRESSOR 12.5 MG PO ×2 (08:39→19:41)
[2024-05-21] MEDS: BACTROBAN 2% OINTMENT 1 APPLIC NASAL ×2 (08:39→19:42)
[2024-05-21] MEDS: FEOSOL 325 MG PO (08:39)
[2024-05-21] MEDS: MAGNESIUM OXIDE 500 MG PO ×2 (08:40→19:40)
[2024-05-21] MEDS: LOW STRENGTH ASPIRIN 81 MG PO (08:40)
[2024-05-21] MEDS: NEURONTIN 100 MG PO ×3 (08:40→22:09)
[2024-05-21] MEDS: PACERONE 200 MG PO ×3 (08:40→22:09)
[2024-05-21] MEDS: PLAVIX 75 MG PO (08:41)
[2024-05-21] MEDS: SENOKOT-S 1 TABLET PO ×2 (08:41→19:41)
[2024-05-21] MEDS: VITAMIN C 500 MG PO (08:41)
[2024-05-21] MEDS: THERAGRAN 1 TABLET PO (08:41)
[2024-05-21] MEDS: PROTONIX 40 MG PO (08:47)
--- NOTE | 2024-05-21 10:01 | W.PN.CD ---
Today's Communication / Plan
-
-Clinically stable; no events overnight.
-Remains in sinus rhythm on telemetry.
-Possible DC to home; await CT Surgery decision.
Impression / Plan
-
Papillary Fibroelastoma/CAD:
-S/p resection of AV papillary fibroelastoma from [facility] & resection of pronounced nodule of arantius on RCC, ELAA (40mm AtriClip), CABG x 1 (EMMA to LAD), Dr. Mandel 05/18/24
-Post-HYUN: LVEF 65%, no RWMA; improved from 50-55%; AV mass not visualized, no AI, mean gradient 3mmHg; mild TR
-Clinically stable; no events overnight.
-Remains in sinus rhythm on telemetry.
-Possible DC to home; await CT Surgery decision.
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
- Most likely secondary to papillary fibroelastoma on the aortic valve; s/p with intervention as above
-Continue ASA/Plavix.
-Continue Lipitor; LDL 69 03/2024.
HTN:
-Blood pressure is stable/controlled.
-Continue current dose of metoprolol tartrate.
HLD:
-Stable
-Continue atorvastatin.
Physical Exam
Vital Signs/Labs
Vital Signs
Temp Pulse Resp BP Pulse Ox
98.2 F 77 16 108/47 96
05/21/24 08:25 05/21/24 08:40 05/21/24 08:25 05/21/24 08:40 05/21/24 09:41
05/20/24 05/21/24 05/22/24
06:59 06:59 07:59
Actual Weight 58.3 kg 56.4 kg
05/21/24 05:02
05/21/24 05:02
PT 16.2 Sec (11.4-14.6) H 05/18/24 12:25
INR 1.25 05/18/24 12:25
APTT 28.1 Sec (23.4-35.0) 05/18/24 12:25
Magnesium 2.0 mg/dl (1.6-2.3) 05/21/24 05:02
Physical Exam
Constitutional: No acute distress and Comfortable
EENT: Anicteric
Cardiovascular: Rhythm & rate is regular, Pedal edema is absent, Systolic murmur absent and S1S2 is normal
Respiratory: Respiratory effort normal and Lungs clear to auscul.
GI: Soft
Neuro/Psych: AO x 3
Other: Skin (Warm, dry, intact)
Data Reviewed
-
Date of Service: May 21, 2024
EKG: Tracing Personally Visualized and interpreted (Telemetry: Sinus rhythm)
Medical Tests (PFT, Pathology etc): Discussed with Patient
Labs: Labs Reviewed by me
Critical Care Time (in minutes): 34
--- NOTE | 2024-05-21 11:32 | PTCARENOTE ---
Pt hypotensive with SBP 80's. CT [facility] provider Long notified via TT. Unit of blood initiated per orders, pt tolerating well at this time.
--- NOTE | 2024-05-21 14:38 | PTCARENOTE ---
Unit of blood completed. Pt aox3; oob to chair and ambulating in room. NSR on tele monitor. VSS. Care as documented; see worklist. Ringing appropriately, call dejesus within reach.
--- NOTE | 2024-05-21 20:45 | PTCARENOTE ---
Assumed care of pt from dayshift RN. Walking rounds completed. Pt AAOx3. ROSA. SR on the tele monitor. HR 70s. No pacing wires. BP stable. Palpable pulses throughout. Trace LE edema. Pt on RA. POX 95-97%. Lung sounds diminished B/L. Deep breathing
and IS encouraged. Abdomen soft/nontender. +BS. Pt voiding w/o issue. Sternal incision w/ surgical Aquacel C/D/I. CTx3 site w/ sutures intact and SPINNER CONTINUOUS. Right IJ cordis and PIVx2 intact. Pt Assist x1 out of the chair and to the bathroom. Pt the
positioned in bed. See worklsit for full nursing assessment and interventions. Call dejesus within reach.
[2024-05-21] MEDS: LIPITOR 80 MG PO (22:10)
[2024-05-22 00:17] VITALS: BP 110/59
--- NOTE | 2024-05-22 00:34 | W.PN.CT ---
Addendum entered and electronically signed by Ousmane Mandel MD 05/22/24 09:15:
I saw and examined the patient.
The PA's note was reviewed and I agree with the note.
Comment:
Follow-up PA/lateral chest x-ray today to continue to follow right apical pneumothorax (significantly reduced/resolved on my review)
Hemoglobin 8.1 from 7.0 status post 1 unit of packed red blood cells yesterday
Discharge home today
Original Note:
Today's Communication / Plan
-
No issues overnight�
Continue OOB to chair and working IS�
Received unit of RBC on 05/21�
Current meds (ASA, Amio, Plavix, Lipitor, Lopressor, Amio, Protonix, gabapentin)�
Plan for DC�
Assessment / Plan
-
-S/p Resection of AV papillary fibroelastoma (presumptive dx) from [facility] & resection of pronounced nodule of arantius on RCC; CABG x 1 (EMMA to LAD); Repair of aortic cannulation site; ELAA (40mm AtriClip) by Dr. Mandel on 05/18/24, pod #4
-Post-HYUN: LVEF 65%, no RWMA; improved from 50-55%; AV mass not visualized, no AI, mean gradient 3mmHg; mild TR
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
-LVEF 55-60%
-Moderate LAD calcific plaque seen on CTA
-Mild TR
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
-Plavix washout, last dose 05/13/24
-HTN
-HLD
-Prediabetes (hgb A1C 6.0)
-GERD
-IBS
-Osteoporosis
-Incidental finding of multiple pulmonary nodules @ RUL (7.8 mm)
-S/P spinal fusion
-S/P bilateral cataract extractions
-Acute postop blood loss anemia
-Acute postop atelectasis
-Acute postop hypovolemia with subsequent hypervolemia
Echo 05/20/24:
LV ejection fraction is 65-70%. No regional wall motion abnormalities are seen.
Normal right ventricular size and function.
Trileaflet aortic valve. Aortic valve opens normally. No aortic regurgitation is seen.
Subjective
-
Date of Service: May 22, 2024
Objective Data
-
PT 16.2 Sec (11.4-14.6) H 05/18/24 12:25
INR 1.25 05/18/24 12:25
APTT 28.1 Sec (23.4-35.0) 05/18/24 12:25
Vital Signs
Vital Signs
Temp Pulse Resp BP Pulse Ox
98.3 F 69 16 110/59 94
05/22/24 00:17 05/22/24 00:17 05/22/24 00:17 05/22/24 00:17 05/22/24 00:17
CT Intake/Output/Weight
05/21/24 05/21/24 05/22/24
06:59 18:59 07:59
Intake Total 600 / 1400 1220 / 1270 50 / 1270
Output Total 700 / 3300 525 / 1225 700 / 1225
Balance -100 / -1900 695 / 45 -650 / 45
SaO2: 94
Physical Exam
-
General: Awake, Oriented and AOx3
Cardiovascular: Regular rate & rhythm
Respiratory: Clear and Equal
Sternum: Stable
Incision: Clean, Dry and Intact
Extremities: No Edema
--- NOTE | 2024-05-22 00:41 | PTCARENOTE ---
Pt reassessed. SR on the tele monitor. HR 60-70s. BP stable. Pt 94% on RA. All surgical sites stable. Pt OOB to void in the bathroom and then repositioned back into bed. Call dejesus within reach.
[2024-05-22 04:16] VITALS: BP 111/62
--- NOTE | 2024-05-22 04:25 | PTCARENOTE ---
No acute changes in assessment. Pt SR on the tele monitor. HR 60-70s. BP stable. Pt 95% on RA. All surgical sites intact. Labs drawn and sent. Call dejesus within reach.
[2024-05-22 05:00] VITALS: BMI 22.8
[2024-05-22 05:00] LABS: Hematocrit 23.9 % (37.0-47.0); Hemoglobin 8.1 g/dL (12.0-16.0); Mean Corp Hgb Conc. 33.9 g/dL (33.0-37.0); Mean Corpuscular Hgb 31.8 pg (27.0-31.0); Mean Corpuscular Volume 93.7 fL (81.0-99.0); Platelet Count 146 10^3/uL (130-400); Red Blood Cell Count 2.55 10^6/uL (4.20-5.40); White Blood Cell Count 10.4 10^3/uL (4.8-10.8)
[2024-05-22] MEDS: TYLENOL 1000 MG PO (05:05)
[2024-05-22 05:26] LABS: Blood Urea Nitrogen 12 mg/dl (7-17); Calcium 8.4 mg/dl (8.4-10.2); Carbon Dioxide 27 mmol/L (22-30); Chloride 103 mmol/L (98-107); Estimated Creatinine Clearance 64 ml/min; Glucose 102 mg/dl (70-99); Magnesium 2.1 mg/dl (1.6-2.3); Potassium 4.2 mmol/L (3.5-5.1); Sodium 134 mmol/L (135-145); eGFR > 60.00
[2024-05-22 08:14] VITALS: BP 129/68
[2024-05-22] MEDS: PROTONIX 40 MG PO (08:23)
[2024-05-22] MEDS: LOPRESSOR 12.5 MG PO (08:23)
[2024-05-22] MEDS: MAGNESIUM OXIDE 500 MG PO (08:23)
[2024-05-22] MEDS: NEURONTIN 100 MG PO (08:23)
[2024-05-22] MEDS: FEOSOL 325 MG PO (08:23)
[2024-05-22] MEDS: THERAGRAN 1 TABLET PO (08:23)
[2024-05-22] MEDS: PLAVIX 75 MG PO (08:24)
[2024-05-22] MEDS: SENOKOT-S 1 TABLET PO (08:24)
[2024-05-22] MEDS: VITAMIN C 500 MG PO (08:24)
[2024-05-22] MEDS: PACERONE 200 MG PO (08:24)
[2024-05-22] MEDS: LOW STRENGTH ASPIRIN 81 MG PO (08:24)
[2024-05-22] MEDS: BACTROBAN 2% OINTMENT NASAL (09:04)
--- NOTE | 2024-05-22 09:05 | PTCARENOTE ---
Received patient for 7a-7p shift. Pt AAOx3, without complaints. NSR on campus monitor, VSS. Medications administered as ordered. Patient denies pain at this time. Tolerating po intake, passing flatus. 2 view CXR done. RIJ cordis infusing without
complications. Patient ambulating with 1 person min assist. Instructed patient to call for assistance prior to ambulation. Patient verbalized understanding, call dejesus in reach. Will continue to monitor.
--- NOTE | 2024-05-22 11:15 | W.DCSUMMARY ---
Discharge Summary
Discharge Data
Date of Admission: 05/13/24
Date of Discharge: 05/22/24
Total time spent discharging patient (in min): 60
-
Pending Results: No
Hospital Course
Primary care physician: Ana Grace
Outpatient senior advisory: Scottie Farmer MD
Inpatient consultants: Cardiology
Procedures:
1. Excision of fibroelastoma of aortic valve
2. Coronary artery bypass grafting x 1 with left internal mammary artery to left anterior descending
3. Exclusion of left atrial appendage with 45 mm atrial clip
Primary Diagnosis:
1. Aortic valve mass
Secondary Diagnoses:
-LVEF 55-60%
-Moderate left anterior descending calcific plaque seen on CT angiogram
-Mild tricuspid regurgitation
-Embolic cerebrovascular accident/transient ischemic attack (left sided 02/2024; right sided 03/2024)- On aspirin/Plavix @ home
-Plavix washout, last dose 05/13/24
-Hypertension
-Hyperlipidemia
-Prediabetes (hgb A1C 6.0)
-Gastroesophageal reflux disease
-Irritable bowel syndrome
-Osteoporosis
-Incidental finding of multiple pulmonary nodules @right upper lobe (7.8 mm)
-Status post spinal fusion
-Status post bilateral cataract extractions
-Acute postoperative blood loss anemia
-Acute postoperative atelectasis
-Acute postoperative hypovolemia with subsequent hypervolemia
Hospital course: Patient was admitted on May 13 for heparin bridge prior to surgery. She needed a 5-day washout of her Plavix. She ultimately underwent open heart surgery as described above on May [address] Ousmane Mandel. Please refer to
his separately dictated operative report for complete details. Postoperatively she progressed well. She was briefly on Levophed postoperatively but this was quickly weaned off. She was extubated per usual postop protocol around 3:40 PM on postop
day 0.
Postoperative day #1: Invasive monitoring lines and Busch catheter were removed. She progressed along the usual postoperative pathway.
Postoperative day #2: Chest tubes removed. Patient was given intravenous diuretics. She began ambulating. She was weaned to room air.
Postoperative day #3: 1 unit of packed red blood cells was transfused. She was noted to have a right apical pneumothorax following chest tube removal which resolved on subsequent chest x-ray. She was kept an additional day given the need for blood
transfusion.
Postoperative day #4: Patient was cleared for discharge to home.
Home medication changes: Losartan 25 mg daily was held at the time of discharge due to hypotension. She was started on metoprolol succinate 25 mg daily.
Discharge Plan
-
Patient Disposition: Home (Routine Discharge)
Discharge Diagnosis/Procedures: -Status post resection of aortic valve papillary fibroelastoma from noncoronary cusp & resection of pronounced nodule of arantius on right coronary cusp; coronary artery bypass grafting x 1 (left internal thoracic
artery to left anterior descending); Repair of aortic cannulation site; exclusion of left atrial appendage (40mm AtriClip) by Dr. Mandel on 05/18/24
-Post-transesophageal echocardiogram: LVEF 65%, no regional wall motion 100 maladies; improved from 50-55%; aortic valve mass not visualized, no aortic insufficiency, mean gradient 3mmHg; mild tricuspid regurgitation
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
-LVEF 55-60%
-Moderate left anterior descending calcific plaque seen on CT angiogram
-Mild tricuspid regurgitation
-Embolic cerebrovascular accident/transient ischemic attack (left sided 02/2024; right sided 03/2024)- On aspirin/Plavix @ home
-Plavix washout, last dose 05/13/24
-Hypertension
-Hyperlipidemia
-Prediabetes (hgb A1C 6.0)
-Gastroesophageal reflux disease
-Irritable bowel syndrome
-Osteoporosis
-Incidental finding of multiple pulmonary nodules @right upper lobe (7.8 mm)
-Status post spinal fusion
-Status post bilateral cataract extractions
-Acute postoperative blood loss anemia
-Acute postoperative atelectasis
-Acute postoperative hypovolemia with subsequent hypervolemia
Condition: Fair
Diet: Low Fat and Low Cholesterol
Activity: No strenuous activity
Driving Restrictions: Not until seen by your Dr
Bathing Restrictions: OK to Shower
Specialty Instructions: Weigh Daily- Call MD for wt gain/loss 3 lbs overnight/5 lbs in 1 week
Activity Restrictions/Additional Instructions:
ACTIVITY:
-No strenuous activity: no heavy lifting, pushing, pulling anything over 15 pounds for one month
-continue to use stairs as tolerated
DRIVING RESTRICTIONS:
-No driving for one month or until approved by your surgeon
WOUND CARE:
-Shower daily. Use soap & water.
-No lotions, creams or powders on incision area.
DIET:
-continue a low fat/low cholesterol diet.
-IF you are diabetic, continue carb controlled diet.
CARDIAC REHAB:
-Please make appointment to start in 5-6 weeks with your local hospital program. (See Cardiac Rehabilitation Discharge Booklet).
SPECIALTY INSTRUCTIONS:
-Weigh yourself daily. Call your physician for any weight gain/loss of 3 lbs overnight or 5 lbs in one week.
-REPORT any clicking noise or uneven appearance of your sternum to your surgeon immediately.
-If you smoke, you are instructed to quit. The [place] smoking hotline phone number is [phone]
Referrals:
CT Transitional Care Nurse [Outside] (The Cardiothoracic Transitional Care Nurse will call you to set up a visit in 1-2 days.)
[facility] [Outside] - 06/30/24 11:00 am
(Cardiac Rehab Orientation appointment is on 06/30/24 (Th) at 11:00am
The Cardiac Rehab gym is located on the first floor of the [facility].)
Ayde Kennedy CRNP [Specified Professional Personl] - 06/27/24 10:00 am
Ana Grace PA-C [Family Provider] - in one to two months
Ousmane Mandel MD [Active] - 06/14/24 1:30 pm
Prescriptions:
New
oxycodone 5 mg Tablet
5 mg PO Q4HPRN PRN (Reason: moderate pain) 7 Days Qty: 28 0RF
metoprolol succinate 25 mg tablet extended release 24 hr
25 mg PO DAILY Qty: 30 2RF
acetaminophen 325 mg Tablet
650 mg PO Q4HPRN PRN (Reason: mild pain,headache,temp >101F ) 30 Days Qty: 60 0RF
Continued
therapeutic multivitamin Tablet
1 tab PO DAILY
aspirin 81 mg Tablet,Chewable
81 mg PO DAILY Qty: 30 0RF
atorvastatin 80 mg tablet
80 mg PO HS
clopidogrel 75 mg tablet
75 mg PO DAILY
magnesium oxide 500 mg magnesium tablet
500 mg PO DAILY
Discontinued
losartan 25 mg Tablet
25 mg PO DAILY
Discharge Orders:
Discharge Patient (As Directed); Ordered 05/22/24
Ordered By: Gulshan Oneil
Care Plan Goals
Care Plan Goals:
Problem: Readiness for enhanced knowledge related to diagnosis and treatment plan
Goal: Understand your diagnosis and treatment plan needs, including medications if applicable.
Instructions: Know your diagnosis, underlying causes and treatment plan options, including medications if applicable. Consult with your health care team to learn about your diagnosis and treatment plan, including medications if applicable.
Discharge Date and Time
Print Language: BURKINAN
--- NOTE | 2024-05-22 11:45 | W.PN.CD ---
Today's Communication / Plan
-
-Patient clinically stable for discharge today; no events on telemetry-remains in sinus rhythm.
-Outpatient follow-up with Cardiology.
Impression / Plan
-
Papillary Fibroelastoma/CAD:
-S/p resection of AV papillary fibroelastoma from [facility] & resection of pronounced nodule of arantius on RCC, ELAA (40mm AtriClip), CABG x 1 (EMMA to LAD), Dr. Mandel 05/18/24
-Post-HYUN: LVEF 65%, no RWMA; improved from 50-55%; AV mass not visualized, no AI, mean gradient 3mmHg; mild TR
-Patient clinically stable for discharge today; no events on telemetry-remains in sinus rhythm.
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
- Most likely secondary to papillary fibroelastoma on the aortic valve; s/p with intervention as above
-Continue ASA/Plavix.
-Continue Lipitor; LDL 69 03/2024.
HTN:
-Stable/controlled.
-Continue current dose of metoprolol tartrate.
HLD:
-Stable
-Continue atorvastatin.
Physical Exam
Vital Signs/Labs
Vital Signs
Temp Pulse Resp BP Pulse Ox
98.9 F 73 18 129/68 96
05/22/24 08:00 05/22/24 08:24 05/22/24 08:00 05/22/24 08:24 05/22/24 09:33
05/21/24 05/22/24 05/23/24
05:59 06:59 06:59
Actual Weight
05/22/24 04:19
05/22/24 04:19
PT 16.2 Sec (11.4-14.6) H 05/18/24 12:25
INR 1.25 05/18/24 12:25
APTT 28.1 Sec (23.4-35.0) 05/18/24 12:25
Magnesium 2.1 mg/dl (1.6-2.3) 05/22/24 04:19
Physical Exam
Constitutional: No acute distress and Comfortable
EENT: Anicteric
Cardiovascular: Rhythm & rate is regular, Pedal edema is absent, Systolic murmur absent and S1S2 is normal
Respiratory: Respiratory effort normal and Lungs clear to auscul.
Neuro/Psych: AO x 3
Other: Skin (Warm, dry, intact)
Data Reviewed
-
Date of Service: May 22, 2024
EKG: Tracing Personally Visualized and interpreted (Telemetry: Sinus rhythm)
Echo: Tracing Personally Visualized and interpreted (LVEF 65-70%)
Medical Tests (PFT, Pathology etc): Discussed with Physician (CT Surgery) and Discussed with Patient
Labs: Labs Reviewed by me
--- NOTE | 2024-05-22 12:10 | PTCARENOTE ---
Patient ambulated 250 feet in [place] and climbed up and down 1 flight of stairs without assistance. Pt tolerated well.
Patient discharged per protocol. Medications administered as ordered, midsternal dressing removed, patient showered without issues, PIV and cordis removed prior to discharged as ordered. Discharge instructions reviewed with patient and spouse.
Verbalized understanding. Patient escorted to car via wheelchair by RN. Transferred safely to car, seatbelt in place, without issues.
[2024-05-22] MEDS: NSS IV (12:17)
== END 2024-05-22 12:16 | disposition home or self-care (01) | DRG 236 ==
LOC: CVICU 09:48
PROVIDERS: Anesthesiology; Clinical Nurse Specialist Acute Care; Nurse Practitioner; ADMITTING PHYSICIAN Internal Medicine; ATTENDING PHYSICIAN Thoracic Surgery (Cardiothoracic Vascular Surgery); CONSULT PHYSICIAN Internal Medicine; CONSULT PHYSICIAN Thoracic Surgery (Cardiothoracic Vascular Surgery); FAMILY PHYSICIAN Physician Assistant Medical
PROC: B24BZZ4 Ultrasonography of Heart with Aorta, Transesophageal (ICD-10-PCS; 2024-05-13)
PROC: 02BF0ZZ Excision of Aortic Valve, Open Approach (ICD-10-PCS; 2024-05-18)
PROC: 02100ZC Bypass Coronary Artery, One Artery from Thoracic Artery, Open Approach (ICD-10-PCS; 2024-05-18)
PROC: 02L70CK Occlusion of Left Atrial Appendage with Extraluminal Device, Open Approach (ICD-10-PCS; 2024-05-18)
PROC: 5A1221Z Performance of Cardiac Output, Continuous (ICD-10-PCS; 2024-05-18)
PROC: 30233N1 Transfusion of Nonautologous Red Blood Cells into Peripheral Vein, Percutaneous Approach (ICD-10-PCS; 2024-05-21)
DX: D15.1 Benign neoplasm of heart (principal); D62 Acute posthemorrhagic anemia; J98.11 Atelectasis; I25.10 Atherosclerotic heart disease of native coronary artery without angina pectoris; I10 Essential (primary) hypertension; K21.9 Gastro-esophageal reflux disease without esophagitis; E86.1 Hypovolemia; E87.70 Fluid overload, unspecified; K58.9 Irritable bowel syndrome, unspecified; E78.00 Pure hypercholesterolemia, unspecified; R73.03 Prediabetes; I07.1 Rheumatic tricuspid insufficiency; M81.0 Age-related osteoporosis without current pathological fracture; M25.511 Pain in right shoulder; Z79.02 Long term (current) use of antithrombotics/antiplatelets; Z79.82 Long term (current) use of aspirin; Z79.899 Other long term (current) drug therapy; Z86.73 Personal history of transient ischemic attack (TIA), and cerebral infarction without residual deficits; Z87.891 Personal history of nicotine dependence; Z98.1 Arthrodesis status
CPT/HCPCS: 88305; 93308; 70355; 71045; 71046; 71275; 73030; 80048; 80053; 81003; 81015; 82248; 82330; 82565; 82805; 82810; 82947; 82962; 83036; 83735; 84132; 84302; 84520; 85014; 85018; 85025; 85027; 85049; 85610; 85730; 86850; 86900; 86901; 86920; 87086; 93005; 93312; 93320; 93321; 93325; 93880; 94002; P9016; P9047; Q9967

== ENCOUNTER 2024-07-13 08:55 | Outpatient (RCR) | payer OTHER, SELFPAY | END 2024-07-13 23:59 | disposition home or self-care (01) | LOC: CRHB 08:55 | PROVIDERS: ATTENDING PHYSICIAN Internal Medicine; FAMILY PHYSICIAN Physician Assistant Medical | DX: Z95.1 Presence of aortocoronary bypass graft (principal) | CPT/HCPCS: G0422; G0423 ==

== ENCOUNTER → 2024-07-20 08:20 | Outpatient (REF) | payer OTHER, SELFPAY | LOC: HWRCS 08:20 | PROVIDERS: ATTENDING PHYSICIAN Nurse Practitioner; FAMILY PHYSICIAN Physician Assistant Medical | DX: I35.8 Other nonrheumatic aortic valve disorders (principal) | CPT/HCPCS: 93308 ==

== ENCOUNTER → 2024-08-05 13:21 | Outpatient (REF) | payer OTHER, SELFPAY | LOC: WDC 13:21 | PROVIDERS: ATTENDING PHYSICIAN Physician Assistant Medical | DX: Z12.31 Encounter for screening mammogram for malignant neoplasm of breast (principal) | CPT/HCPCS: 77063; 77067 ==

== ENCOUNTER 2024-08-12 09:44 | Outpatient (RCR) | payer OTHER, SELFPAY | END 2024-08-12 23:59 | disposition home or self-care (01) | LOC: CRHB 09:44 | PROVIDERS: ATTENDING PHYSICIAN Internal Medicine; FAMILY PHYSICIAN Physician Assistant Medical | DX: I25.10 Atherosclerotic heart disease of native coronary artery without angina pectoris (principal); Z95.1 Presence of aortocoronary bypass graft (principal) | CPT/HCPCS: G0422; G0423 ==

== ENCOUNTER 2024-09-12 08:59 | Outpatient (RCR) | payer OTHER, SELFPAY | END 2024-09-12 23:59 | disposition home or self-care (01) | LOC: CRHB 08:59 | PROVIDERS: ATTENDING PHYSICIAN Internal Medicine; FAMILY PHYSICIAN Physician Assistant Medical | DX: I25.10 Atherosclerotic heart disease of native coronary artery without angina pectoris (principal); Z95.1 Presence of aortocoronary bypass graft | CPT/HCPCS: 93797; 93798; G0422; G0423 ==

== ENCOUNTER 2024-09-26 08:50 | Outpatient (RCR) | payer OTHER, SELFPAY | END 2024-10-04 18:23 | disposition home or self-care (01) | LOC: CRHB 08:50 | PROVIDERS: ATTENDING PHYSICIAN Internal Medicine; FAMILY PHYSICIAN Physician Assistant Medical | DX: I25.10 Atherosclerotic heart disease of native coronary artery without angina pectoris (principal); Z95.1 Presence of aortocoronary bypass graft | CPT/HCPCS: G0422; G0423 ==

== ENCOUNTER → 2024-10-05 09:39 | Outpatient (REF) | payer OTHER, SELFPAY | LOC: EMG 09:39 | PROVIDERS: ATTENDING PHYSICIAN Nurse Practitioner Adult Health; FAMILY PHYSICIAN Physician Assistant Medical | DX: R20.2 Paresthesia of skin (principal) | CPT/HCPCS: 95886; 95913 ==